=== PATIENT | male | born 1990 | race Caucasian/White ===

== ENCOUNTER 2018-06-05 11:19 | Emergency (ER) | payer SELFPAY ==
[2018-06-05 11:30] VITALS: BP 141/100; PULSE 144; RESP 18; TEMP 37.3; O2SAT 99; BMI 38.0
[2018-06-05 12:00] LABS: Add Manual Diff / Slide Review NO; Basophils Percent Auto 0.5 % (0-2); Eosinophils Percent Auto 0.1 % (2-4); Hematocrit 49.2 % (41-53); Hemoglobin 16.9 g/dL (13.5-17.5); Lymphocytes Percent Auto 25.7 % (25-40); Mean Corpuscular HGB Conc 34.3 % (30-36); Mean Corpuscular Hemoglobin 30.6 PG (26-34); Mean Corpuscular Volume 89.1 fL (80-100); Monocytes Percent Auto 7.1 % (3-14); Neutrophils Absolute Auto 7200 /uL (3000-5900); Neutrophils Percent Auto 66.6 % (50-75); Platelet Count 396 X10^3/uL (150-400); Red Blood Cell Count 5.53 X10^6/uL (4.5-5.9); Red Cell Distribution Width 14.1 % (11.6-14.8); White Blood Cell Count 10.8 X10^3/uL (4.5-11.0)
[2018-06-05 12:09] LABS: Alanine Aminotransferase 28 IU/L (21-72); Albumin 4.9 g/dL (3.5-5.0); Albumin Globulin Ratio 1.3 (1.0-2.8); Alkaline Phosphatase 88 U/L (38-126); Aspartate Aminotransferase 38 IU/L (17-59); Blood Urea Nitrogen 12 mg/dL (9-20); Calcium 9.4 mg/dL (8.4-10.2); Carbon Dioxide 24 mmol/L (22-32); Chloride 105 mmol/L (98-107); Estimated Glomerular Filt Rate > 60.0 mL/min (>60); Ethanol (ETOH) < 10 mg/dL; Globulin 3.8 g/dL (1.7-4.1); Glucose 145 mg/dL (70-100); Lipase 34 U/L (23-300); Sodium 149 mmol/L (137-145); Total Protein 8.7 g/dL (6.3-8.2)
[2018-06-05 12:10] LABS: HEMOLYSIS 103 (0-50); Potassium 5.1 mmol/L (3.4-5.1)
[2018-06-05] MEDS: SODIUM CHLORIDE 0.9% 1,000 ML 1000 ML IV ×2 (12:10→13:15)
[2018-06-05] MEDS: LORazepam 2 MG/ML SYRINGE 1 MG IV ×2 (12:10→14:01)
[2018-06-05 12:15] VITALS: BP 120/64; PULSE 121; RESP 19; O2SAT 98
--- NOTE | 2018-06-05 12:35 | ED_ITS ---
HPI - Alcohol General Chief Complaint: Toxicology Problem Stated Complaint: alcohol withdrawal Time Seen by Provider: 06/05/18 11:51 Source: patient Mode of arrival: ambulatory Limitations: no limitations History of Present Illness HPI narrative: Patient is a 28-year-old male who thinks he is going through alcohol withdrawal. He drinks a 5th of vodka daily he drank a 5th of vodka last night. Today he has left lower quadrant pain and started vomiting once he got to the ED. He says that he was a little shaky as well. No fevers home, no diarrhea. For 4 months ago he was sober at that time for 6 months. Chronic alcohol use: Yes Previous visits for alcohol intoxication: No Recent trauma: No Related Data Previous Rx's Medication Instructions Recorded chlordiazepoxide HCl 25 mg PO Q8H #6 cap 06/05/18 Allergies Allergy/AdvReac Type Severity Reaction Status Date / Time No Known Drug Allergies Allergy Verified 06/05/18 11:53 Review of Systems Review of Systems All systems reviewed & are unremarkable except as noted in HPI and below Constitutional Reports system reviewed and no additional complaints, except as docu, Reports excessive sweating, Denies fever(s) and Denies headache(s) ENT Ears, Nose, Mouth, and Throat: Denies headache(s) Cardiovascular Denies chest pain, Reports diaphoresis, Denies syncope, Reports rapid heart rate , Denies dyspnea and Denies dyspnea on exertion Respiratory Denies cough, Denies dyspnea, Denies dyspnea on exertion and Denies wheezing Gastrointestinal Gastrointestinal: Reports as per HPI Musculoskeletal Denies back pain, Denies muscle weakness, Denies numbness and Denies tingling Integumentary/Breasts Denies pruritus, Denies erythema, Denies rash and Denies wounds Neurologic Denies syncope, Denies headache(s), Denies numbness and Denies tingling Endocrine Reports excessive sweating Allergic/Immunologic Denies wheezing PFSH Medical History Alcohol abuse (Acute) Social History Smoking Status: Never smoker alcohol intake: current substance use type: does not use Exam Initial Vital Signs Initial Vital Signs: Vital Signs Temperature 99.1 F 06/05/18 11:30 Pulse Rate 144 H 06/05/18 11:30 Respiratory Rate 18 06/05/18 11:30 Blood Pressure 141/100 H 06/05/18 11:30 Pulse Oximetry 99 06/05/18 11:30 GENERAL: Well-appearing, well-nourished and in no acute distress. HEENT: Head atraumatic,EOMI, pupils reactive, CARDIOVASCULAR: Tachycardic, regular no murmurs RESPIRATORY: Breath sounds equal bilaterally, no wheezes rales or rhonchi. ABDOMEN: Soft, tender left lower quadrant without guarding or rebound EXTREMITIES: Normal range of motion, no clubbing or edema. Neurovascularly intact NEUROLOGICAL: Alert and oriented x4.Normal gait and speech. Cranial nerves II through XII grossly intact. No tremors no asterixis SKIN: Warm, dry, no laceration, no petechiae, no rashes or lesions. Course Orders Ordered: ED Orders 06/05/18 11:45 Complete Blood Count AUTO DIFF Stat Comprehensive Metabolic Panel Stat Ethanol (ETOH) Stat Lipase Stat 06/05/18 12:40 CT abdomen pelvis w con Stat 06/05/18 13:45 Urine Microscopic Stat Discontinued Medications Sodium Chloride (Normal Saline 0.9%) 1,000 mls @ 1,000 mls/hr IV BOLUS ONE Stop: 06/05/18 12:51 Last Infusion: 06/05/18 13:13 Dose: 0 mls/hr Admin: 06/05/18 12:10 Dose: 1,000 mls/hr Sodium Chloride (Normal Saline 0.9%) 1,000 mls @ 1,000 mls/hr IV CONT NATHAN Last Infusion: 06/05/18 14:51 Dose: 0 mls/hr Admin: 06/05/18 13:15 Dose: 1,000 mls/hr Ketorolac Tromethamine (Toradol) 30 mg IV NOW ONE Stop: 06/05/18 12:41 Last Admin: 06/05/18 12:57 Dose: 30 mg Lorazepam (Ativan) 1 mg IV NOW ONE Stop: 06/05/18 11:53 Last Admin: 06/05/18 12:10 Dose: 1 mg Lorazepam (Ativan) 1 mg IV NOW ONE Stop: 06/05/18 13:58 Last Admin: 06/05/18 14:01 Dose: 1 mg Lorazepam (Ativan) 1 mg PO NOW ONE Stop: 06/05/18 14:46 Last Admin: 06/05/18 14:53 Dose: Lorazepam (Ativan) 1 mg PO NOW ONE Stop: 06/05/18 14:52 Last Admin: 06/05/18 14:52 Dose: 1 mg Ondansetron HCl (Zofran) 4 mg IV NOW ONE Stop: 06/05/18 12:41 Last Admin: 06/05/18 12:58 Dose: 4 mg Pantoprazole Sodium (Protonix) 40 mg IV NOW ONE Stop: 06/05/18 12:41 Last Admin: 06/05/18 12:57 Dose: 40 mg Vital Signs - 8 hr 06/05/18 11:30 06/05/18 12:15 06/05/18 14:00 Temperature 99.1 F Pulse Rate 144 H 121 H 111 H Respiratory Rate 18 19 20 Blood Pressure 141/100 H Blood Pressure [Left Arm] 120/64 120/57 L Pulse Oximetry 99 98 100 06/05/18 14:30 06/05/18 15:00 Temperature Pulse Rate 111 H 109 H Respiratory Rate 16 25 H Blood Pressure Blood Pressure [Left Arm] 101/31 L 114/55 L Pulse Oximetry 99 100 MDM - Alcohol Lab Data Attestation: I reviewed the patient's lab results. Result diagrams: 06/05/18 11:45 06/05/18 11:45 Labs: Lab Results 06/05/18 06/05/18 06/05/18 Range/Units 11:45 11:45 11:45 WBC 10.8 (4.5-11.0) X10^3/uL RBC 5.53 (4.5-5.9) X10^6/uL Hgb 16.9 (13.5-17.5) g/dL Hct 49.2 (41-53) % MCV 89.1 (80-100) fL MCH 30.6 (26-34) PG MCHC 34.3 (30-36) % RDW 14.1 (11.6-14.8) % Plt Count 396 (150-400) X10^3/uL Neut % (Auto) 66.6 (50-75) % Lymph % (Auto) 25.7 (25-40) % [place] % (Auto) 7.1 (3-14) % Eos % (Auto) 0.1 L (2-4) % Baso % (Auto) 0.5 (0-2) % Neut # (Auto) 7200 H (0640-8936) /uL Sodium 149 H (137-145) mmol/L Potassium 5.1 (3.4-5.1) mmol/L Chloride 105 (98-107) mmol/L Carbon Dioxide 24 (22-32) mmol/L BUN 12 (9-20) mg/dL Creatinine 0.80 (0.66-1.25) mg/dL Estimated GFR > 60.0 (>60) mL/min BUN/Creatinine Ratio 15.0 (6-22) Glucose 145 H (70-100) mg/dL Calcium 9.4 (8.4-10.2) mg/dL Total Bilirubin 1.0 (0.2-1.3) mg/dL AST 38 (17-59) IU/L ALT 28 (21-72) IU/L Alkaline Phosphatase 88 (38-126) U/L Total Protein 8.7 H (6.3-8.2) g/dL Albumin 4.9 (3.5-5.0) g/dL Globulin 3.8 (1.7-4.1) g/dL Albumin/Globulin Ratio 1.3 (1.0-2.8) Lipase 34 (23-300) U/L Urine RBC (0-5/HPF) Urine WBC (0-5/HPF) Ur Squamous Epith Cells Urine Bacteria (None) Hyaline Casts (None) Urine Mucus (Negative) Ur Culture Indicated? Micro UA Comment Ethyl Alcohol < 10 mg/dL 06/05/18 Range/Units 13:45 WBC (4.5-11.0) X10^3/uL RBC (4.5-5.9) X10^6/uL Hgb (13.5-17.5) g/dL Hct (41-53) % MCV (80-100) fL MCH (26-34) PG MCHC (30-36) % RDW (11.6-14.8) % Plt Count (150-400) X10^3/uL Neut % (Auto) (50-75) % Lymph % (Auto) (25-40) % [place] % (Auto) (3-14) % Eos % (Auto) (2-4) % Baso % (Auto) (0-2) % Neut # (Auto) (2135-1763) /uL Sodium (137-145) mmol/L Potassium (3.4-5.1) mmol/L Chloride (98-107) mmol/L Carbon Dioxide (22-32) mmol/L BUN (9-20) mg/dL Creatinine (0.66-1.25) mg/dL Estimated GFR (>60) mL/min BUN/Creatinine Ratio (6-22) Glucose (70-100) mg/dL Calcium (8.4-10.2) mg/dL Total Bilirubin (0.2-1.3) mg/dL AST (17-59) IU/L ALT (21-72) IU/L Alkaline Phosphatase (38-126) U/L Total Protein (6.3-8.2) g/dL Albumin (3.5-5.0) g/dL Globulin (1.7-4.1) g/dL Albumin/Globulin Ratio (1.0-2.8) Lipase (23-300) U/L Urine RBC 30-100/hpf H (0-5/HPF) Urine WBC 5-10/hpf H (0-5/HPF) Ur Squamous Epith Cells 10-30 /hpf H Urine Bacteria Few (2-10) H (None) Hyaline Casts 10-30/lpf (None) Urine Mucus 2+ H (Negative) Ur Culture Indicated? Cult not indicated Micro UA Comment Not Reportable Ethyl Alcohol mg/dL Imaging Data CT scan - abdomen: Radiologist's impression: PROCEDURE: CT ABDOMEN PELVIS W CON INDICATIONS: LLQ pain TECHNIQUE: After the administration of intravenous contrast, 5 mm thick sections acquired from the diaphragm to the symphysis. 5 mm coronal and sagittal reformats were acquired. For radiation dose reduction, the following was used: automated exposure control, adjustment of mA and/or kV according to patient size. COMPARISON: None. FINDINGS: Image quality: Excellent. ABDOMEN: Lung bases: Lung bases are clear. Heart size is normal. Solid organs: Hepatic steatosis is seen. Gallbladder negative. Biliary system is non dilated. Pancreas enhances normally. Spleen is normal in size and enhancement. No adrenal nodules. Kidneys demonstrate normal size and enhancement, without hydronephrosis. Peritoneum and bowel: Bowel loops demonstrate normal wall thickness and caliber. No free fluid or air. Normal appendix. No evidence of acute diverticulitis. Rectum is collapsed otherwise unremarkable Nodes and vessels: No retroperitoneal or mesenteric adenopathy by size criteria. Aorta and inferior vena cava are normal in size. Miscellaneous: No ventral hernias. PELVIS: Genitourinary: Bladder wall thickness is normal. Miscellaneous: No inguinal hernias or adenopathy. Bones: No suspicious bony lesions. No vertebral body compression fractures. IMPRESSION: Hepatic steatosis. Normal appendix. No acute abnormality. Dictated by: Sherman Spencer M.D. on 06/05/2018 at 13:54 MDM Narrative Medical decision making narrative: 12:00 PM CIWA=4 but tachy 2:45 p.m. CIWA=3 Patient's heart rate has improved significantly. He had no times has tremors of very minimal diaphoresis. He has not had any more vomiting in the ED. He drinks a 5th of vodka less than 24 hr ago. Not quite the right timing for alcohol withdrawal than the left he has been given multiple doses of Ativan. I have discussed with him he will not get another prescription of Librium. CT of his abdomen is within normal limits blood work shows mild hypernatremia Also his urine is noted to have who felt blood and is multiple squamous epithelial cells this is more typical for females urine. he did not urinate again but has no urinary track complaints Discharge Plan Departure Patient Disposition: Home, Self-Care Clinical Impression: Alcohol withdrawal syndrome Discharge Date/Time: 06/05/18 15:38 Interventions: ED Discharge Assessment Last Done: 06/05/18 15:35 Instructions: DI for Alcohol Abuse, DI for Drug or Alcohol Withdrawal Activity Restrictions/Additional Instructions: *You have been diagnosed with alcohol withdrawal syndrome *What to do: Stop drinking alcohol, do not drink while taking Librium. Blood work and CAT scan within normal limits *Continue to take medications as directed -Librium: Take as directed -Day 1: 1 pill 3 times a day -day 2: 1 pill twice a day -Day 3: 1 pill *Follow up with your primary care provider in 2-3 days *Return to ER if you should have hallucinations, seizure or any new, worsening or concerning symptoms Prescriptions: New chlordiazepoxide HCl 25 mg capsule 25 mg PO Q8H Qty: 6 RF: 0
--- NOTE | 2018-06-05 12:40 | DI.CT.S_ITS ---
PROCEDURE: CT ABDOMEN PELVIS W CON INDICATIONS: LLQ pain TECHNIQUE: After the administration of intravenous contrast, 5 mm thick sections acquired from the diaphragm to the symphysis. 5 mm coronal and sagittal reformats were acquired. For radiation dose reduction, the following was used: automated exposure control, adjustment of mA and/or kV according to patient size. COMPARISON: None. FINDINGS: Image quality: Excellent. ABDOMEN: Lung bases: Lung bases are clear. Heart size is normal. Solid organs: Hepatic steatosis is seen. Gallbladder negative. Biliary system is non dilated. Pancreas enhances normally. Spleen is normal in size and enhancement. No adrenal nodules. Kidneys demonstrate normal size and enhancement, without hydronephrosis. Peritoneum and bowel: Bowel loops demonstrate normal wall thickness and caliber. No free fluid or air. Normal appendix. No evidence of acute diverticulitis. Rectum is collapsed otherwise unremarkable Nodes and vessels: No retroperitoneal or mesenteric adenopathy by size criteria. Aorta and inferior vena cava are normal in size. Miscellaneous: No ventral hernias. PELVIS: Genitourinary: Bladder wall thickness is normal. Miscellaneous: No inguinal hernias or adenopathy. Bones: No suspicious bony lesions. No vertebral body compression fractures. IMPRESSION: Hepatic steatosis. Normal appendix. No acute abnormality. Dictated by: Sherman Spencer M.D. on 06/05/2018 at 13:54 Approved by: Sherman Spencer M.D. on 06/05/2018 at 13:56
[2018-06-05] MEDS: PANTOPRAZOLE 40 MG VIAL IV (12:57)
[2018-06-05] MEDS: KETOROLAC 60 MG/2 ML VIAL 30 MG IV (12:57)
[2018-06-05] MEDS: ONDANSETRON 4 MG/2 ML INJ IV (12:58)
[2018-06-05 14:00] VITALS: BP 120/57; PULSE 111; RESP 20; O2SAT 100
[2018-06-05 14:30] VITALS: BP 101/31; PULSE 111; RESP 16; O2SAT 99
[2018-06-05 14:33] LABS: Bacteria Urine Few (2-10); Mucus Urine 2+ (Negative); RBC Urine 30-100/HPF (0-5/HPF); Squamous Epithelial Cell Urine 10-30 /HPF; WBC Urine 5-10/HPF (0-5/HPF)
[2018-06-05 14:34] LABS: Culture Indicated Urine Cult Not Indicated; Hyaline Casts Urine 10-30/LPF
[2018-06-05] MEDS: LORazepam 0.5 MG TABLET 1 MG PO (14:52)
[2018-06-05 15:00] VITALS: BP 114/55; PULSE 109; RESP 25; O2SAT 100
== END 2018-06-05 15:38 | disposition home or self-care (01) ==
PROVIDERS: Emergency Provider Emergency Medicine
DX: F10.239 Alcohol dependence with withdrawal, unspecified (principal)
CPT/HCPCS: 36591; 74177; 80053; 80320; 81003; 81015; 83690; 85025; 93005; 96361; 96374; 96375; 96376; 99283; 99285; C9113; J1885; J2060; J2405; Q9967

== ENCOUNTER 2018-08-05 23:18 | Emergency (ER) | payer OTHER, MEDICAID, SELFPAY ==
[2018-08-05 23:24] VITALS: BP 121/79; PULSE 89; RESP 18; TEMP 36.8; O2SAT 100
--- NOTE | 2018-08-05 23:32 | ED.ABDPAIN ---
HPI - Abdominal Pain General Chief Complaint: Abdominal Pain Stated Complaint: ABDOMINAL PAIN Time Seen by Provider: 08/05/18 23:32 Source: patient Mode of arrival: ambulatory Limitations: no limitations History of Present Illness HPI narrative: The patient arrives with left lower abdominal pain that started abruptly at 6:00 p.m. tonight. He has no recent injuries. He has had no fever. He has no nausea, vomiting or diarrhea. The pain radiates to the left groin. About 2 hr prior to arrival he developed hematuria. He has a remote history of kidney stones. It has been several years since he last passed a kidney stone. Other than the stones, he has alcoholism but has been sober for a significant period of time. He denies associated chest pain or dyspnea. He has no back pain. Related Data Previous Rx's Medication Instructions Recorded chlordiazepoxide HCl 25 mg PO Q8H #6 cap 06/05/18 hydrocodone-acetaminophen [Douglas] 1 tab PO Q4H PRN #10 tab 08/06/18 ibuprofen 800 mg PO Q6-8H PRN #30 tab 08/06/18 Allergies Allergy/AdvReac Type Severity Reaction Status Date / Time No Known Drug Allergies Allergy Verified 06/05/18 11:53 Review of Systems Review of Systems All systems reviewed & are unremarkable except as noted in HPI and below Cardiovascular Denies chest pain, Denies irregular heart rhythm, Denies lightheadedness, Denies palpitations, Denies dyspnea, Denies dyspnea on exertion and Denies orthopnea Respiratory Denies cough, Denies dyspnea, Denies dyspnea on exertion and Denies wheezing Gastrointestinal Gastrointestinal: Reports abdominal pain, Denies change in bowel habits, Denies diarrhea, Denies nausea and Denies vomiting Genitourinary Reports hematuria, Reports flank pain, Denies urinary incontinence and Denies urinary urgency Musculoskeletal Denies back pain, Denies muscle weakness, Denies numbness and Denies tingling Integumentary/Breasts Denies erythema and Denies rash Neurologic Denies numbness and Denies tingling Endocrine Denies palpitations Allergic/Immunologic Denies wheezing PFSH Medical History Kidney stones (Acute) Alcohol abuse (Acute) Social History Smoking Status: Never smoker alcohol intake: former substance use type: does not use Exam Initial Vital Signs Initial Vital Signs: Vital Signs Temperature 98.2 F 08/05/18 23:24 Pulse Rate 89 08/05/18 23:24 Respiratory Rate 18 08/05/18 23:24 Blood Pressure 121/79 08/05/18 23:24 Pulse Oximetry 100 08/05/18 23:24 Const General: cooperative and well developed Nutritional Appearance: well nourished Orientation: alert, awake, oriented x3 and not confused Chest Chest: normal inspection of the chest Resp Effort & Inspection: normal respiratory effort, able to speak in complete sentences, no respiratory distress and no use of accessory muscles Auscultation: clear to auscultation bilaterally, no rales, no rhonchi and no wheezes Cardio Rate: regular rate Rhythm: regular rhythm Heart Sounds: no click, no gallops, no murmurs and no rubs Pulses: normal peripheral pulses GI Inspection: non-distended Palpation: soft, no hepatosplenomegaly, No pulsatile mass and tender (Left flank and left lower quadrant. No peritoneal signs.) Auscultation: normal bowel sounds Back/Spine/Pelvis Back: No CVA tenderness Skin General: no rashes or lesions noted, No jaundice and No petechiae Neuro General: alert, oriented x3, gait normal and no focal motor deficits Speech: speech normal Extrem General: full ROM and no clubbing, cyanosis or edema Course Orders Ordered: ED Orders 08/05/18 23:31 Urine Microscopic Stat 08/05/18 23:40 CT kidney ureter bladder (KUB) Stat 08/05/18 23:50 Basic Metabolic Panel Stat Complete Blood Count AUTO DIFF Stat Sodium Chloride (Normal Saline 0.9%) 1,000 mls @ 250 mls/hr IV CONT NATHAN Last Admin: 08/05/18 23:52 Dose: 250 mls/hr Discontinued Medications Hydrocodone Bitart/Acetaminophen (Vicodin Prepack) 1 bottle MISC SEEINSTR ONE Stop: 08/06/18 01:43 Last Admin: 08/06/18 01:54 Dose: 1 bottle Hydromorphone HCl (Dilaudid) 1 mg IV NOW ONE Stop: 08/06/18 00:12 Last Admin: 08/06/18 00:25 Dose: 1 mg Ketorolac Tromethamine (Toradol) 30 mg IV NOW ONE Stop: 08/05/18 23:39 Last Admin: 08/05/18 23:51 Dose: 30 mg Ondansetron HCl (Zofran) 4 mg IV NOW ONE Stop: 08/06/18 00:13 Last Admin: 08/06/18 00:25 Dose: 4 mg Tamsulosin HCl (Flomax) 0.4 mg PO NOW ONE Stop: 08/06/18 00:13 Last Admin: 08/06/18 00:53 Dose: 0.4 mg Vital Signs - 8 hr 08/05/18 23:24 Temperature 98.2 F Pulse Rate 89 Respiratory Rate 18 Blood Pressure 121/79 Pulse Oximetry 100 MDM - Abdominal Pain Lab Data Result diagrams: 08/05/18 23:50 08/05/18 23:50 Lab Results 08/05/18 08/05/18 08/05/18 Range/Units 23:31 23:50 23:50 WBC 7.9 (4.5-11.0) X10^3/uL RBC 5.49 (4.5-5.9) X10^6/uL Hgb 16.7 (13.5-17.5) g/dL Hct 48.1 (41-53) % MCV 87.7 (80-100) fL MCH 30.4 (26-34) PG MCHC 34.6 (30-36) % RDW 13.9 (11.6-14.8) % Plt Count 250 (150-400) X10^3/uL Neut % (Auto) 60.9 (50-75) % Lymph % (Auto) 29.4 (25-40) % [place] % (Auto) 8.8 (3-14) % Eos % (Auto) 0.4 L (2-4) % Baso % (Auto) 0.5 (0-2) % Neut # (Auto) 4800 (9730-2503) /uL Sodium 143 (137-145) mmol/L Potassium 3.8 (3.4-5.1) mmol/L Chloride 101 (98-107) mmol/L Carbon Dioxide 27 (22-32) mmol/L BUN 9 (9-20) mg/dL Creatinine 0.90 (0.66-1.25) mg/dL Estimated GFR > 60.0 (>60) mL/min BUN/Creatinine Ratio 10.0 (6-22) Glucose 107 H (70-100) mg/dL Calcium 9.6 (8.4-10.2) mg/dL Urine RBC 30-100/hpf H (0-5/HPF) Urine WBC 1-5/hpf (0-5/HPF) Ur Squamous Epith Cells 1-5 /hpf D Urine Bacteria Few (2-10) H (None) Urine Mucus 2+ H (Negative) Ur Culture Indicated? Cult not indicated Micro UA Comment Not Reportable Point of care testing: Urine Dip Bedside Urine Glucose Negative Bedside Urine Bilirubin ++ 2 Bedside Urine Ketone + 15 Urine Specific [place] 1.030 Bedside Urine Occult Blood +++ Bedside Urine pH 6.0 Bedside Urine Protein ++ 100 Bedside Urine Urobilinogen +/- 1mg Bedside Urine Nitrite - Negative Bedside Urine Leukocytes - Negative Esterase Imaging Data CT scan - abdomen: Radiologist's impression: Radiology interpret the CT as a distal colitis, recommend clinical correlation. No renal stones or hydronephrosis were noted. MDM Narrative Medical decision making narrative: The patient has left lower quadrant pain plus hematuria. Clinically evaluation is highly suggestive of a distal ureter stone. The stone was not revealed by CT. He was still treated as if he was passing a kidney stone, and improved with the medications given. He will discharged home with pain medications, with instructions to drink fluid and screen his urine for a stone. Discharge Plan Departure Patient Disposition: Home Clinical Impression: Calculus of distal left ureter Instructions: DI for Kidney Stones Activity Restrictions/Additional Instructions: Motrin 800mg every 6 hr as needed for pain. Douglas every 4 hr for added pain control. Be sure you are drinking enough fluids that you have to urinate every 3-4 hours at the minimum. Screen your urine in an effort to detect a passed kidney stone. Return here for increasing pain, fever, or nausea/vomiting. Prescriptions: New ibuprofen 800 mg tablet 800 mg PO Q6-8H PRN (Reason: pain) Qty: 30 RF: 0 hydrocodone-acetaminophen [Douglas] 5-325 mg tablet 1 tab PO Q4H PRN (Reason: pain) Qty: 10 RF: 0 No Action chlordiazepoxide HCl 25 mg capsule 25 mg PO Q8H Qty: 6 RF: 0
--- NOTE | 2018-08-05 23:40 | DI.CT.S_ITS ---
PROCEDURE: CT KIDNEY URETER BLADDER (KUB) INDICATIONS: Hematuria. Left flank pain. TECHNIQUE: Noncontrast 5 mm thick sections acquired from the diaphragms to the symphysis. 5 mm thick coronal and sagittal reformats were then performed. For radiation dose reduction, the following was used: automated exposure control, adjustment of mA and/or kV according to patient size. COMPARISON: None. FINDINGS: Image quality: Excellent. Lung bases: Lung bases are clear. Heart size is normal. Urinary system: Both kidneys are normal in size. No kidney stones. No hydronephrosis or perinephric fat stranding. Both ureters appear non-dilated throughout their expected courses. Bladder wall thickness is normal; no calcified bladder stones. Other solid organs: Liver is normal in size. There is decreased liver parenchymal density suggestive of hepatic steatosis. Gallbladder is within normal limits. Pancreas is normal in contours. Spleen is normal in size. No adrenal nodules. Peritoneum and bowel: Unenhanced bowel loops demonstrate normal wall thickness and caliber. No free fluid or air. Small hiatal hernia is seen. Appendix is visualized and is within normal limits. Nodes and vessels: No retroperitoneal or mesenteric adenopathy by size criteria. Aorta and inferior vena cava are normal in caliber. Abdominal wall: No ventral hernias. Pelvis: No free pelvic fluid. No inguinal hernias or adenopathy. Bones: No suspicious bony lesions. No vertebral body compression fractures. IMPRESSION: 1. No renal stones or hydronephrosis. 2. No bowel obstruction. Normal appendix. No free fluid or free air. 3. Mild hepatic steatosis. No significant discrepancies from preliminary report. Dictated by: Liam Bone M.D. on 08/06/2018 at 8:59 Approved by: Liam Bone M.D. on 08/06/2018 at 9:11
[2018-08-05 23:47] LABS: RBC Urine 30-100/HPF (0-5/HPF)
[2018-08-05 23:48] LABS: Bacteria Urine Few (2-10); Squamous Epithelial Cell Urine 1-5 /HPF; WBC Urine 1-5/HPF (0-5/HPF)
[2018-08-05 23:49] LABS: Mucus Urine 2+ (Negative)
[2018-08-05 23:50] LABS: Culture Indicated Urine Cult Not Indicated
[2018-08-05] MEDS: KETOROLAC 60 MG/2 ML VIAL 30 MG IV (23:51)
[2018-08-05] MEDS: SODIUM CHLORIDE 0.9% 1,000 ML 250 ML IV (23:52)
[2018-08-05 23:59] LABS: Add Manual Diff / Slide Review NO; Basophils Percent Auto 0.5 % (0-2); Eosinophils Percent Auto 0.4 % (2-4); Hematocrit 48.1 % (41-53); Hemoglobin 16.7 g/dL (13.5-17.5); Lymphocytes Percent Auto 29.4 % (25-40); Mean Corpuscular HGB Conc 34.6 % (30-36); Mean Corpuscular Hemoglobin 30.4 PG (26-34); Mean Corpuscular Volume 87.7 fL (80-100); Monocytes Percent Auto 8.8 % (3-14); Neutrophils Absolute Auto 4800 /uL (3000-5900); Neutrophils Percent Auto 60.9 % (50-75); Platelet Count 250 X10^3/uL (150-400); Red Blood Cell Count 5.49 X10^6/uL (4.5-5.9); Red Cell Distribution Width 13.9 % (11.6-14.8); White Blood Cell Count 7.9 X10^3/uL (4.5-11.0)
[2018-08-06 00:08] LABS: Blood Urea Nitrogen 9 mg/dL (9-20); Calcium 9.6 mg/dL (8.4-10.2); Carbon Dioxide 27 mmol/L (22-32); Chloride 101 mmol/L (98-107); Estimated Glomerular Filt Rate > 60.0 mL/min (>60); Glucose 107 mg/dL (70-100); HEMOLYSIS < 15 (0-50); Potassium 3.8 mmol/L (3.4-5.1); Sodium 143 mmol/L (137-145)
[2018-08-06] MEDS: ONDANSETRON 4 MG/2 ML INJ IV (00:25)
[2018-08-06] MEDS: HYDROMORPHONE 1 MG INJ IV (00:25)
[2018-08-06] MEDS: TAMSULOSIN 0.4 MG CAPSULE PO (00:53)
[2018-08-06] MEDS: HYDROCODONE/ACET 5/325 PREPACK 1 BOTTLE MISC (01:54)
[2018-08-06 02:39] VITALS: BP 120/75; PULSE 85; RESP 18; TEMP 36.7; O2SAT 100
== END 2018-08-06 02:00 | disposition home or self-care (01) ==
PROVIDERS: Emergency Provider Emergency Medicine
DX: N20.1 Calculus of ureter (principal)
CPT/HCPCS: 36591; 74176; 80048; 81003; 81015; 85025; 96361; 96374; 96375; 99283; 99284; J1170; J1885; J2405

== ENCOUNTER 2018-08-08 07:00 | Emergency (ER) | payer OTHER, MEDICAID, SELFPAY ==
[2018-08-08 07:20] VITALS: BP 144/88; PULSE 80; RESP 13; TEMP 36.2; O2SAT 99
--- NOTE | 2018-08-08 07:21 | ED_ITS ---
HPI - Abdominal Pain General Chief Complaint: Abdominal Pain Stated Complaint: lower left abdominal pain Time Seen by Provider: 08/08/18 07:15 Source: patient Mode of arrival: ambulatory Limitations: no limitations History of Present Illness HPI narrative: Patient is a 28-year-old male here for evaluation of left lower quadrant pain and blood in his urine. He was seen here in the emergency department just a few days ago and was diagnosed with a kidney stone. Was sent home with pain medication and ibuprofen. Patient states that he has a remote history of kidney stones. Review of that chart shows that the CT scan the performed during that visit did not show any stones in the renal system however according to the note there was concern that the patient could have recently passed a stone secondary to the fact that his history and physical exam was very consistent with this. Patient states that after he went home his symptoms seemed to improve somewhat however they have now continued. He has the same left lower quadrant abdominal pain. He states that he still has blood in his urine. He states that for the past 24 hr or so he has had ?dripping? when he urinates. States he has some urgency. No burning when he pees. No history of urinary tract infections. Patient is sexually active. No history of sexually transmitted diseases. States that he is not concerned about any sexually transmitted diseases. No bowel symptoms. No prior abdominal surgeries. Patient was seen here in the emergency department earlier this year during a period of time when he was going through alcohol withdrawal. According to that note he was also complaining of left lower quadrant abdominal pain. The patient states that he does not remember pain in this area specifically during that visit because he was ?sore all over ?secondary to his alcohol withdrawal. Review of that note also shows that the patient had hematuria at that time. Patient also states that several years ago when he was going through time of alcohol withdrawal he had left lower quadrant abdominal pain that he states is very similar to the left lower quadrant abdominal pain that he has currently. He states at that time he did not have any hematuria. He states that he has been sober for almost 60 days currently. Related Data Previous Rx's Medication Instructions Recorded chlordiazepoxide HCl 25 mg PO Q8H #6 cap 06/05/18 hydrocodone-acetaminophen [[place]] 1 tab PO Q4H PRN #10 tab 08/06/18 ibuprofen 800 mg PO Q6-8H PRN #30 tab 08/06/18 hydrocodone-acetaminophen [[place]] 1 tab PO Q4-6H PRN #6 tab 08/08/18 levofloxacin [Levaquin] 750 mg PO DAILY #7 tab 08/08/18 ondansetron [Zofran ODT] 4 mg PO Q6-8H PRN #7 tab 08/08/18 Allergies Allergy/AdvReac Type Severity Reaction Status Date / Time No Known Drug Allergies Allergy Verified 06/05/18 11:53 Review of Systems Constitutional Denies fever(s) and Denies headache(s) ENT Ears, Nose, Mouth, and Throat: Denies vertigo, Denies dizziness and Denies headache(s) Cardiovascular Denies chest pain, Denies syncope and Denies dyspnea Respiratory Denies dyspnea Gastrointestinal Gastrointestinal: Reports abdominal pain, Denies melena, Denies change in bowel habits, Denies cramping, Denies diarrhea, Denies nausea and Denies vomiting Genitourinary Reports hematuria, Reports difficulty urinating, Denies genital lesions, Reports dysuria, Reports flank pain (Left), Denies testicular pain, Denies urinary frequency, Reports urinary hesitancy, Denies urinary incontinence and Reports urinary urgency Musculoskeletal Denies myalgias, Denies deformity and Denies arthralgias Integumentary/Breasts Denies lesions and Denies rash Neurologic Denies vertigo, Denies dizziness, Denies syncope and Denies headache(s) Hematologic/Lymphatic Denies easy bleeding and Denies easy bruising Allergic/Immunologic Denies urticaria PFSH Medical History Alcohol abuse (Acute) Kidney stones (Acute) Surgical History No pertinent past surgical history (Acute) Social History Smoking Status: Never smoker alcohol intake: former substance use type: does not use Exam Initial Vital Signs Initial Vital Signs: Vital Signs Temperature 97.2 F L 08/08/18 07:20 Pulse Rate 80 08/08/18 07:20 Respiratory Rate 13 08/08/18 07:20 Blood Pressure 144/88 H 08/08/18 07:20 Pulse Oximetry 99 08/08/18 07:20 Const General: cooperative, healthy appearing, comfortable, well developed, well groomed and No acute distress Orientation: alert, awake and oriented x3 HENMT Head: normal to inspection, normocephalic and atraumatic Resp Effort & Inspection: normal respiratory effort Cardio Rate: regular rate Rhythm: regular rhythm GI Inspection: non-distended Palpation: soft, No firm and tender (Left lower quadrant. No rebound no guarding) Rectal Exam: normal sphincter tone and prostate normal General: CVA tenderness (Left) Back/Spine/Pelvis Back: CVA tenderness left Skin Lesions: no lesions Rashes: no rashes Neuro General: alert, awake and oriented x3 Cognition: normal cognition Speech: speech normal Extrem General: normal to inspection and capillary refill normal Psych Appearance: grossly normal and well kempt Course Orders Ordered: ED Orders 08/08/18 07:55 Urinalysis and Microscopic Stat Urine Culture Stat 08/08/18 08:10 Complete Blood Count AUTO DIFF Stat Comprehensive Metabolic Panel Stat Lipase Stat Vital Signs - 8 hr 08/08/18 07:20 Temperature 97.2 F L Pulse Rate 80 Respiratory Rate 13 Blood Pressure 144/88 H Pulse Oximetry 99 MDM - Abdominal Pain Medical Records Attestation: I reviewed the patient's medical records. Lab Data Attestation: I reviewed the patient's lab results. Result diagrams: 08/08/18 08:10 08/08/18 08:10 Lab Results 08/08/18 08/08/18 08/08/18 Range/Units 07:55 08:10 08:10 WBC 8.1 (4.5-11.0) X10^3/uL RBC 5.18 (4.5-5.9) X10^6/uL Hgb 16.0 (13.5-17.5) g/dL Hct 45.4 (41-53) % MCV 87.5 (80-100) fL MCH 30.8 (26-34) PG MCHC 35.2 (30-36) % RDW 14.1 (11.6-14.8) % Plt Count 223 (150-400) X10^3/uL Neut % (Auto) 66.7 (50-75) % Lymph % (Auto) 22.0 L (25-40) % [place] % (Auto) 8.8 (3-14) % Eos % (Auto) 2.2 (2-4) % Baso % (Auto) 0.3 (0-2) % Neut # (Auto) 5400 (8885-3208) /uL Sodium 146 H (137-145) mmol/L Potassium 4.5 (3.4-5.1) mmol/L Chloride 105 (98-107) mmol/L Carbon Dioxide 31 (22-32) mmol/L BUN 8 L (9-20) mg/dL Creatinine 0.70 (0.66-1.25) mg/dL Estimated GFR > 60.0 (>60) mL/min BUN/Creatinine Ratio 11.4 (6-22) Glucose 101 H (70-100) mg/dL Calcium 9.3 (8.4-10.2) mg/dL Total Bilirubin 0.8 (0.2-1.3) mg/dL AST 52 (17-59) IU/L ALT 51 (21-72) IU/L Alkaline Phosphatase 91 (38-126) U/L Total Protein 7.3 (6.3-8.2) g/dL Albumin 4.4 (3.5-5.0) g/dL Globulin 2.9 (1.7-4.1) g/dL Albumin/Globulin Ratio 1.5 (1.0-2.8) Lipase 35 (23-300) U/L Urine Color Red Urine Appearance Cloudy Urine pH 8.0 (4.5-8.0) Ur Specific [place] 1.010 (1.000-1.035) Urine Protein 1+ H (Negative) Urine Glucose (UA) Negative (Normal) g/dL Urine Ketones Trace H (NEGATIVE) Urine Occult Blood 3+ H (Negative) Urine Nitrate Positive (Negative) Urine Bilirubin Negative (NEGATIVE) Urine Urobilinogen 1.0 (0.2) E.U./dL Ur Leukocyte Esterase 1+ H (NEGATIVE) Urine RBC >100/hpf (0-5/HPF) Urine WBC 0-1/hpf (0-5/HPF) Ur Squamous Epith Cells 1-5 /hpf Urine Bacteria Few (2-10) H (None) Ur Culture Indicated? Specimen cultured Micro UA Comment Not Reportable MDM Narrative Medical decision making narrative: Patient has a nitrite positive urine today. Given his hematuria and the urinary hesitancy a do have concern for urinary tract infection. The patient states that he is not concerned about any sexually transmitted infections. His physical exam shows no prostate tenderness or bogginess. Patient had a CT scan of his abdomen a couple days ago that was unremarkable. This was done without contrast and so diagnoses such as renal artery pathology as a source of his hematuria is still in question however given his physical exam, the fact that he had hematuria several months ago, the fact that he had this same left lower quadrant abdominal pain several years ago when he was withdrawing from alcohol and also the fact that he has nitrite positive urine today will hold on any further CT scans and treat with antibiotics. Will discharge with a prescription for Levaquin. This should take care of any urinary tract infection and also the possibility of prostatitis and also diverticulitis. Patient was given return precautions. He was instructed to increase his fluid intake to prevent clot formation and then urinary retention. Patient expressed understanding and agreement with plan. Discharge Plan Departure Patient Disposition: Home Clinical Impression: Urinary tract infection, Abdominal pain, Hematuria Instructions: Blood in Urine, DI for Urinary Tract Infection (UTI) Prescriptions: New hydrocodone-acetaminophen [[place]] 5-325 mg tablet 1 tab PO Q4-6H PRN (Reason: pain) Qty: 6 RF: 0 levofloxacin [Levaquin] 750 mg tablet 750 mg PO DAILY Qty: 7 RF: 0 ondansetron [Zofran ODT] 4 mg tablet,disintegrating 4 mg PO Q6-8H PRN (Reason: nausea and vomiting) Qty: 7 RF: 0 No Action ibuprofen 800 mg tablet 800 mg PO Q6-8H PRN (Reason: pain) Qty: 30 RF: 0 hydrocodone-acetaminophen [[place]] 5-325 mg tablet 1 tab PO Q4H PRN (Reason: pain) Qty: 10 RF: 0 chlordiazepoxide HCl 25 mg capsule 25 mg PO Q8H Qty: 6 RF: 0
[2018-08-08 07:58] LABS: Appearance Urine UA CLOUDY; Bilirubin Urine UA NEGATIVE (NEGATIVE); Color Urine UA RED; Glucose Urine UA NEGATIVE (Normal); Ketones Urine UA TRACE (NEGATIVE); Leukocyte Esterase Urine UA 1+ (NEGATIVE); Nitrite Urine UA POSITIVE (Negative); Occult Blood Urine UA 3+ (Negative); Protein Urine UA 1+ (Negative)
[2018-08-08 08:06] LABS: Bacteria Urine Few (2-10); Culture Indicated Urine Specimen Cultured; RBC Urine >100/HPF (0-5/HPF); Squamous Epithelial Cell Urine 1-5 /HPF; WBC Urine 0-1/HPF (0-5/HPF)
[2018-08-08 08:25] LABS: Add Manual Diff / Slide Review NO; Basophils Percent Auto 0.3 % (0-2); Eosinophils Percent Auto 2.2 % (2-4); Hematocrit 45.4 % (41-53); Mean Corpuscular HGB Conc 35.2 % (30-36); Mean Corpuscular Hemoglobin 30.8 PG (26-34); Mean Corpuscular Volume 87.5 fL (80-100); Monocytes Percent Auto 8.8 % (3-14); Neutrophils Absolute Auto 5400 /uL (3000-5900); Neutrophils Percent Auto 66.7 % (50-75); Platelet Count 223 X10^3/uL (150-400); Red Blood Cell Count 5.18 X10^6/uL (4.5-5.9); Red Cell Distribution Width 14.1 % (11.6-14.8); White Blood Cell Count 8.1 X10^3/uL (4.5-11.0)
[2018-08-08 08:31] LABS: Alanine Aminotransferase 51 IU/L (21-72); Albumin 4.4 g/dL (3.5-5.0); Albumin Globulin Ratio 1.5 (1.0-2.8); Alkaline Phosphatase 91 U/L (38-126); Aspartate Aminotransferase 52 IU/L (17-59); BUN Creatinine Ratio 11.4 (6-22); Bilirubin Total 0.8 mg/dL (0.2-1.3); Blood Urea Nitrogen 8 mg/dL (9-20); Calcium 9.3 mg/dL (8.4-10.2); Carbon Dioxide 31 mmol/L (22-32); Chloride 105 mmol/L (98-107); Estimated Glomerular Filt Rate > 60.0 mL/min (>60); Globulin 2.9 g/dL (1.7-4.1); Glucose 101 mg/dL (70-100); HEMOLYSIS 20 (0-50); Lipase 35 U/L (23-300); Potassium 4.5 mmol/L (3.4-5.1); Sodium 146 mmol/L (137-145); Total Protein 7.3 g/dL (6.3-8.2)
[2018-08-08 09:38] VITALS: BP 137/88; PULSE 90; RESP 14; TEMP 37; O2SAT 95
== END 2018-08-08 09:40 | disposition home or self-care (01) ==
PROVIDERS: Emergency Provider Emergency Medicine
DX: N39.0 Urinary tract infection, site not specified (principal); R31.9 Hematuria, unspecified; R10.9 Unspecified abdominal pain
CPT/HCPCS: 36415; 80053; 81001; 83690; 85025; 87086; 99282; 99283

== ENCOUNTER 2018-08-16 20:03 | Emergency (ER) | payer OTHER, MEDICAID, SELFPAY ==
--- NOTE | 2018-08-16 20:06 | ED.AMS ---
HPI - Altered Mental Status <Anson Gibbons DO - Last Filed: 08/17/18 18:14> General Chief Complaint: Toxicology Problem Stated Complaint: Decreased LOC Time Seen by Provider: 08/16/18 20:04 Source: EMS Mode of arrival: EMS Limitations: altered mental status History of Present Illness HPI narrative: Patient is a 28-year-old male brought in by EMS. They state that they were called by the patient's family. Was reported that the patient is staying with a family member. Does report that he was drinking excessively today. Apparently this evening the patient urinated in his nephew's closet and was stumbling around the home and so EMS was called. He was brought to the emergency department. Difficult to obtain history from the patient. He does have points of time where he does participate in the exam. He did tell nursing staff that he did drink today. He denied taking any other intoxicating substances. No reports of falls. Related Data Previous Rx's Medication Instructions Recorded lorazepam [Ativan] 1 mg PO .see instructions PRN #18 08/17/18 tab Allergies Allergy/AdvReac Type Severity Reaction Status Date / Time No Known Drug Allergies Allergy Verified 06/05/18 11:53 Review of Systems <Anson Gibbons DO - Last Filed: 08/17/18 18:14> Review of Systems unobtainable due to mental status Exam <Anson Gibbons DO - Last Filed: 08/17/18 18:14> Initial Vital Signs Initial Vital Signs: Vital Signs Temperature 98.2 F 08/16/18 20:12 Pulse Rate 100 H 08/16/18 20:12 Respiratory Rate 16 08/16/18 20:12 Blood Pressure 146/96 H 08/16/18 20:12 Pulse Oximetry 93 08/16/18 20:12 Const General: comfortable, well developed and well groomed Orientation: awake, not oriented x3, oriented to person (Told nursing staff his name but did not answer this question for me), oriented to place (He did tell nursing staff that he was at the hospital but did not answer this question for me) and not oriented to time Limitations: altered mental status HENMT Head: normal to inspection and normocephalic Eyes Pupils: PERRL (6 mm equal bilateral) Resp Effort & Inspection: normal respiratory effort Auscultation: clear to auscultation bilaterally Cardio Rate: regular rate Rhythm: regular rhythm Pulses: radial pulses present GI Inspection: non-distended Palpation: soft and No firm Skin Lesions: no lesions Rashes: no rashes Neuro General: moves all extremities Other: Patient did not answer any of my questions however did follow commands. He did squeeze my hand when I asked him if he was drinking alcohol today. Extrem Other: Moves all 4 extremities to command Psych Appearance: grossly normal and well kempt <Lise Arambula, DO - Last Filed: 08/17/18 18:59> Initial Vital Signs Initial Vital Signs: Vital Signs Temperature 98.2 F 08/16/18 20:12 Pulse Rate 100 H 08/16/18 20:12 Respiratory Rate 16 08/16/18 20:12 Blood Pressure 146/96 H 08/16/18 20:12 Pulse Oximetry 93 08/16/18 20:12 Course <Anson Gibbons, DO - Last Filed: 08/17/18 18:14> Orders Ordered: Discontinued Medications Sodium Chloride (Normal Saline 0.9%) 1,000 mls @ 1,000 mls/hr IV BOLUS ONE Stop: 08/16/18 21:03 Last Infusion: 08/16/18 21:20 Dose: 0 mls/hr Admin: 08/16/18 20:18 Dose: 1,000 mls/hr Sodium Chloride (Normal Saline 0.9%) 1,000 mls @ 200 mls/hr IV CONT NATHAN Last Admin: 08/17/18 04:18 Dose: Not Given Magnesium Sulfate 2 gm/ Folic Acid 1 mg/ Thiamine HCl 100 mg / Multivitamins 10 ml/ Sodium Chloride 1,015.2 mls @ 200 mls/hr IV NOW ONE Stop: 08/17/18 02:20 Last Infusion: 08/17/18 04:18 Dose: 0 mls/hr Admin: 08/16/18 22:10 Dose: 200 mls/hr Lorazepam (Ativan) 1 mg IV NOW ONE Stop: 08/17/18 09:15 Last Admin: 08/17/18 09:26 Dose: 1 mg Lorazepam (Ativan) 1 mg IV NOW ONE Stop: 08/17/18 10:31 Last Admin: 08/17/18 10:32 Dose: 1 mg Lorazepam (Ativan) 0.5 mg IV NOW ONE Stop: 08/17/18 11:12 Last Admin: 08/17/18 11:23 Dose: 0.5 mg Vital Signs - 8 hr 08/17/18 11:30 08/17/18 12:00 Pulse Rate 95 H 96 H Respiratory Rate 11 L 18 Blood Pressure [Left Arm] 159/84 H 142/97 H Pulse Oximetry 96 97 <Lise Arambula, DO - Last Filed: 08/17/18 18:59> Orders Ordered: Discontinued Medications Sodium Chloride (Normal Saline 0.9%) 1,000 mls @ 1,000 mls/hr IV BOLUS ONE Stop: 08/16/18 21:03 Last Infusion: 08/16/18 21:20 Dose: 0 mls/hr Admin: 08/16/18 20:18 Dose: 1,000 mls/hr Sodium Chloride (Normal Saline 0.9%) 1,000 mls @ 200 mls/hr IV CONT NATHAN Last Admin: 08/17/18 04:18 Dose: Not Given Magnesium Sulfate 2 gm/ Folic Acid 1 mg/ Thiamine HCl 100 mg / Multivitamins 10 ml/ Sodium Chloride 1,015.2 mls @ 200 mls/hr IV NOW ONE Stop: 08/17/18 02:20 Last Infusion: 08/17/18 04:18 Dose: 0 mls/hr Admin: 08/16/18 22:10 Dose: 200 mls/hr Lorazepam (Ativan) 1 mg IV NOW ONE Stop: 08/17/18 09:15 Last Admin: 08/17/18 09:26 Dose: 1 mg Lorazepam (Ativan) 1 mg IV NOW ONE Stop: 08/17/18 10:31 Last Admin: 08/17/18 10:32 Dose: 1 mg Lorazepam (Ativan) 0.5 mg IV NOW ONE Stop: 08/17/18 11:12 Last Admin: 08/17/18 11:23 Dose: 0.5 mg Reevaluation(s) Reevaluation #1: Patient just seen by social work, discussed options for detox, rehab and living situation. Patient is deferring currently. Social work is going to touch base with his brother whom he lives with and will re-contact patient here in ER. Patient otherwise has been sleeping this morning. Patient feels a little shaky thinks he might be starting have withdrawls, alert and appropriate at this time, HR in 90's otherwise normal vitals. No visible tremor at this time. Ativan 1mg IV ordered to prevent withdrawl. Time: 09:08 Vital Signs - 8 hr 08/17/18 11:30 08/17/18 12:00 Pulse Rate 95 H 96 H Respiratory Rate 11 L 18 Blood Pressure [Left Arm] 159/84 H 142/97 H Pulse Oximetry 96 97 MDM - Altered Mental Status <Anson Gibbons DO - Last Filed: 08/17/18 18:14> Lab Data Attestation: I reviewed the patient's lab results. Result diagrams: 08/17/18 06:07 08/17/18 06:07 Lab Results 08/16/18 08/16/18 08/16/18 Range/Units 20:30 20:38 20:38 WBC 7.3 (4.5-11.0) X10^3/uL RBC 6.19 H (4.5-5.9) X10^6/uL Hgb 19.2 H (13.5-17.5) g/dL Hct 55.2 H (41-53) % MCV 89.1 (80-100) fL MCH 30.9 (26-34) PG MCHC 34.7 (30-36) % RDW 14.7 (11.6-14.8) % Plt Count 332 (150-400) X10^3/uL Neut % (Auto) 33.9 L (50-75) % Lymph % (Auto) 54.3 H (25-40) % [place] % (Auto) 10.0 (3-14) % Eos % (Auto) 1.1 L (2-4) % Baso % (Auto) 0.7 (0-2) % Neut # (Auto) 2500 L (6857-3162) /uL Sodium 155 H (137-145) mmol/L Potassium 4.1 (3.4-5.1) mmol/L Chloride 109 H (98-107) mmol/L Carbon Dioxide 27 (22-32) mmol/L BUN 16 (9-20) mg/dL Creatinine 0.90 (0.66-1.25) mg/dL Estimated GFR > 60.0 (>60) mL/min BUN/Creatinine Ratio 17.8 (6-22) Glucose 125 H (70-100) mg/dL Lactate (0.7-2.1) mmol/L Calcium 8.5 (8.4-10.2) mg/dL Total Bilirubin 0.9 (0.2-1.3) mg/dL AST 40 (17-59) IU/L ALT 35 (21-72) IU/L Alkaline Phosphatase 88 (38-126) U/L Total Protein 7.9 (6.3-8.2) g/dL Albumin 4.6 (3.5-5.0) g/dL Globulin 3.3 (1.7-4.1) g/dL Albumin/Globulin Ratio 1.4 (1.0-2.8) Lipase 77 D (23-300) U/L Salicylates < 1.0 (<20) mg/dL Urine Opiates Screen Negative (Negative) Ur Oxycodone Screen Negative (Negative) Urine Methadone Screen Negative (Negative) Acetaminophen < 10 L (10-30) ug/mL Ur Barbiturates Screen Negative (Negative) U Tricyclic Antidepress Negative (Negative) Ur Phencyclidine Scrn Negative (Negative) Ur Amphetamines Screen Negative (Negative) U Methamphetamines Scrn Negative (Negative) Ur MDMA Scrn (Ecstasy) Negative (Negative) U Benzodiazepines Scrn Positive H (Negative) Urine Cocaine Screen Negative (Negative) U Marijuana (THC) Screen Negative (Negative) Ethyl Alcohol 435 H* mg/dL 08/16/18 08/16/18 08/17/18 Range/Units 20:38 20:38 06:07 WBC 7.0 (4.5-11.0) X10^3/uL RBC 5.80 (4.5-5.9) X10^6/uL Hgb 17.6 H (13.5-17.5) g/dL Hct 51.6 (41-53) % MCV 89.0 (80-100) fL MCH 30.3 (26-34) PG MCHC 34.0 (30-36) % RDW 14.5 (11.6-14.8) % Plt Count 268 (150-400) X10^3/uL Neut % (Auto) 50.3 (50-75) % Lymph % (Auto) 41.6 H (25-40) % [place] % (Auto) 6.8 (3-14) % Eos % (Auto) 0.8 L (2-4) % Baso % (Auto) 0.5 (0-2) % Neut # (Auto) 3500 (9468-2179) /uL Sodium (137-145) mmol/L Potassium (3.4-5.1) mmol/L Chloride (98-107) mmol/L Carbon Dioxide (22-32) mmol/L BUN (9-20) mg/dL Creatinine (0.66-1.25) mg/dL Estimated GFR (>60) mL/min BUN/Creatinine Ratio (6-22) Glucose (70-100) mg/dL Lactate 1.6 (0.7-2.1) mmol/L Calcium (8.4-10.2) mg/dL Total Bilirubin (0.2-1.3) mg/dL AST (17-59) IU/L ALT (21-72) IU/L Alkaline Phosphatase (38-126) U/L Total Protein (6.3-8.2) g/dL Albumin (3.5-5.0) g/dL Globulin (1.7-4.1) g/dL Albumin/Globulin Ratio (1.0-2.8) Lipase Cancelled (23-300) U/L Salicylates Cancelled (<20) mg/dL Urine Opiates Screen (Negative) Ur Oxycodone Screen (Negative) Urine Methadone Screen (Negative) Acetaminophen (10-30) ug/mL Ur Barbiturates Screen (Negative) U Tricyclic Antidepress (Negative) Ur Phencyclidine Scrn (Negative) Ur Amphetamines Screen (Negative) U Methamphetamines Scrn (Negative) Ur MDMA Scrn (Ecstasy) (Negative) U Benzodiazepines Scrn (Negative) Urine Cocaine Screen (Negative) U Marijuana (THC) Screen (Negative) Ethyl Alcohol Cancelled mg/dL 08/17/18 08/17/18 Range/Units 06:07 06:07 WBC (4.5-11.0) X10^3/uL RBC (4.5-5.9) X10^6/uL Hgb (13.5-17.5) g/dL Hct (41-53) % MCV (80-100) fL MCH (26-34) PG MCHC (30-36) % RDW (11.6-14.8) % Plt Count (150-400) X10^3/uL Neut % (Auto) (50-75) % Lymph % (Auto) (25-40) % [place] % (Auto) (3-14) % Eos % (Auto) (2-4) % Baso % (Auto) (0-2) % Neut # (Auto) (9566-0811) /uL Sodium 155 H (137-145) mmol/L Potassium 4.5 (3.4-5.1) mmol/L Chloride 112 H (98-107) mmol/L Carbon Dioxide 27 (22-32) mmol/L BUN 16 (9-20) mg/dL Creatinine 0.80 (0.66-1.25) mg/dL Estimated GFR > 60.0 (>60) mL/min BUN/Creatinine Ratio 20.0 (6-22) Glucose 109 H (70-100) mg/dL Lactate (0.7-2.1) mmol/L Calcium 8.2 L (8.4-10.2) mg/dL Total Bilirubin (0.2-1.3) mg/dL AST (17-59) IU/L ALT (21-72) IU/L Alkaline Phosphatase (38-126) U/L Total Protein (6.3-8.2) g/dL Albumin (3.5-5.0) g/dL Globulin (1.7-4.1) g/dL Albumin/Globulin Ratio (1.0-2.8) Lipase (23-300) U/L Salicylates (<20) mg/dL Urine Opiates Screen (Negative) Ur Oxycodone Screen (Negative) Urine Methadone Screen (Negative) Acetaminophen (10-30) ug/mL Ur Barbiturates Screen (Negative) U Tricyclic Antidepress (Negative) Ur Phencyclidine Scrn (Negative) Ur Amphetamines Screen (Negative) U Methamphetamines Scrn (Negative) Ur MDMA Scrn (Ecstasy) (Negative) U Benzodiazepines Scrn (Negative) Urine Cocaine Screen (Negative) U Marijuana (THC) Screen (Negative) Ethyl Alcohol 340 mg/dL ECG Data Attestation: I personally reviewed and interpreted this ECG as follows: Prior ECG tracings: not available for review Interpretation: Sinus rhythm Ventricular rate in 99 Normal axis Normal QRS Normal QTC No ST T wave changes MDM Narrative Medical decision making narrative: Patient has remained calm all evening. Has not been any respiratory distress. He did have an elevated H&H and also hypernatremia. I suspect that this is secondary to his alcohol use and dehydration. He was given a banana bag here in the emergency department. Just before shift turned over the patient became more arousable. This is when the 2nd alcohol level was drawn and patient still has a significant alcohol level. He states he does not remember last evening. He did tolerate oral intake. During my re-evaluation this morning he states that he has been sober until yesterday. Care turned over to day provider at change of shift to continue to evaluate the patient for sobriety. A social work consult was placed secondary to his alcohol use and potential social situations about places to live. <Lise Arambula, DO - Last Filed: 08/17/18 18:59> Lab Data Lab Results 08/16/18 08/16/18 08/16/18 Range/Units 20:30 20:38 20:38 WBC 7.3 (4.5-11.0) X10^3/uL RBC 6.19 H (4.5-5.9) X10^6/uL Hgb 19.2 H (13.5-17.5) g/dL Hct 55.2 H (41-53) % MCV 89.1 (80-100) fL MCH 30.9 (26-34) PG MCHC 34.7 (30-36) % RDW 14.7 (11.6-14.8) % Plt Count 332 (150-400) X10^3/uL Neut % (Auto) 33.9 L (50-75) % Lymph % (Auto) 54.3 H (25-40) % [place] % (Auto) 10.0 (3-14) % Eos % (Auto) 1.1 L (2-4) % Baso % (Auto) 0.7 (0-2) % Neut # (Auto) 2500 L (9770-1210) /uL Sodium 155 H (137-145) mmol/L Potassium 4.1 (3.4-5.1) mmol/L Chloride 109 H (98-107) mmol/L Carbon Dioxide 27 (22-32) mmol/L BUN 16 (9-20) mg/dL Creatinine 0.90 (0.66-1.25) mg/dL Estimated GFR > 60.0 (>60) mL/min BUN/Creatinine Ratio 17.8 (6-22) Glucose 125 H (70-100) mg/dL Lactate (0.7-2.1) mmol/L Calcium 8.5 (8.4-10.2) mg/dL Total Bilirubin 0.9 (0.2-1.3) mg/dL AST 40 (17-59) IU/L ALT 35 (21-72) IU/L Alkaline Phosphatase 88 (38-126) U/L Total Protein 7.9 (6.3-8.2) g/dL Albumin 4.6 (3.5-5.0) g/dL Globulin 3.3 (1.7-4.1) g/dL Albumin/Globulin Ratio 1.4 (1.0-2.8) Lipase 77 D (23-300) U/L Salicylates < 1.0 (<20) mg/dL Urine Opiates Screen Negative (Negative) Ur Oxycodone Screen Negative (Negative) Urine Methadone Screen Negative (Negative) Acetaminophen < 10 L (10-30) ug/mL Ur Barbiturates Screen Negative (Negative) U Tricyclic Antidepress Negative (Negative) Ur Phencyclidine Scrn Negative (Negative) Ur Amphetamines Screen Negative (Negative) U Methamphetamines Scrn Negative (Negative) Ur MDMA Scrn (Ecstasy) Negative (Negative) U Benzodiazepines Scrn Positive H (Negative) Urine Cocaine Screen Negative (Negative) U Marijuana (THC) Screen Negative (Negative) Ethyl Alcohol 435 H* mg/dL 08/16/18 08/16/18 08/17/18 Range/Units 20:38 20:38 06:07 WBC 7.0 (4.5-11.0) X10^3/uL RBC 5.80 (4.5-5.9) X10^6/uL Hgb 17.6 H (13.5-17.5) g/dL Hct 51.6 (41-53) % MCV 89.0 (80-100) fL MCH 30.3 (26-34) PG MCHC 34.0 (30-36) % RDW 14.5 (11.6-14.8) % Plt Count 268 (150-400) X10^3/uL Neut % (Auto) 50.3 (50-75) % Lymph % (Auto) 41.6 H (25-40) % [place] % (Auto) 6.8 (3-14) % Eos % (Auto) 0.8 L (2-4) % Baso % (Auto) 0.5 (0-2) % Neut # (Auto) 3500 (6141-5617) /uL Sodium (137-145) mmol/L Potassium (3.4-5.1) mmol/L Chloride (98-107) mmol/L Carbon Dioxide (22-32) mmol/L BUN (9-20) mg/dL Creatinine (0.66-1.25) mg/dL Estimated GFR (>60) mL/min BUN/Creatinine Ratio (6-22) Glucose (70-100) mg/dL Lactate 1.6 (0.7-2.1) mmol/L Calcium (8.4-10.2) mg/dL Total Bilirubin (0.2-1.3) mg/dL AST (17-59) IU/L ALT (21-72) IU/L Alkaline Phosphatase (38-126) U/L Total Protein (6.3-8.2) g/dL Albumin (3.5-5.0) g/dL Globulin (1.7-4.1) g/dL Albumin/Globulin Ratio (1.0-2.8) Lipase Cancelled (23-300) U/L Salicylates Cancelled (<20) mg/dL Urine Opiates Screen (Negative) Ur Oxycodone Screen (Negative) Urine Methadone Screen (Negative) Acetaminophen (10-30) ug/mL Ur Barbiturates Screen (Negative) U Tricyclic Antidepress (Negative) Ur Phencyclidine Scrn (Negative) Ur Amphetamines Screen (Negative) U Methamphetamines Scrn (Negative) Ur MDMA Scrn (Ecstasy) (Negative) U Benzodiazepines Scrn (Negative) Urine Cocaine Screen (Negative) U Marijuana (THC) Screen (Negative) Ethyl Alcohol Cancelled mg/dL 08/17/18 08/17/18 Range/Units 06:07 06:07 WBC (4.5-11.0) X10^3/uL RBC (4.5-5.9) X10^6/uL Hgb (13.5-17.5) g/dL Hct (41-53) % MCV (80-100) fL MCH (26-34) PG MCHC (30-36) % RDW (11.6-14.8) % Plt Count (150-400) X10^3/uL Neut % (Auto) (50-75) % Lymph % (Auto) (25-40) % [place] % (Auto) (3-14) % Eos % (Auto) (2-4) % Baso % (Auto) (0-2) % Neut # (Auto) (8086-3270) /uL Sodium 155 H (137-145) mmol/L Potassium 4.5 (3.4-5.1) mmol/L Chloride 112 H (98-107) mmol/L Carbon Dioxide 27 (22-32) mmol/L BUN 16 (9-20) mg/dL Creatinine 0.80 (0.66-1.25) mg/dL Estimated GFR > 60.0 (>60) mL/min BUN/Creatinine Ratio 20.0 (6-22) Glucose 109 H (70-100) mg/dL Lactate (0.7-2.1) mmol/L Calcium 8.2 L (8.4-10.2) mg/dL Total Bilirubin (0.2-1.3) mg/dL AST (17-59) IU/L ALT (21-72) IU/L Alkaline Phosphatase (38-126) U/L Total Protein (6.3-8.2) g/dL Albumin (3.5-5.0) g/dL Globulin (1.7-4.1) g/dL Albumin/Globulin Ratio (1.0-2.8) Lipase (23-300) U/L Salicylates (<20) mg/dL Urine Opiates Screen (Negative) Ur Oxycodone Screen (Negative) Urine Methadone Screen (Negative) Acetaminophen (10-30) ug/mL Ur Barbiturates Screen (Negative) U Tricyclic Antidepress (Negative) Ur Phencyclidine Scrn (Negative) Ur Amphetamines Screen (Negative) U Methamphetamines Scrn (Negative) Ur MDMA Scrn (Ecstasy) (Negative) U Benzodiazepines Scrn (Negative) Urine Cocaine Screen (Negative) U Marijuana (THC) Screen (Negative) Ethyl Alcohol 340 mg/dL Discharge Plan Departure Patient Disposition: Home Clinical Impression: Alcoholic intoxication, Dehydration Discharge Date/Time: 08/17/18 12:00 Interventions: ED Discharge Assessment Last Done: 08/17/18 12:22 Instructions: DI for Drug or Alcohol Withdrawal Activity Restrictions/Additional Instructions: Follow-up with the resources for alcohol abuse that was given to you by social work. If you are having worsening symptoms of alcohol withdrawal even with some medication return to the emergency department. Symptoms to look out for are increasing tremors, auditory or visual hallucinations, seizure activity, persistent vomiting or any other concerning signs or symptoms. Take medication as prescribed this medication can make you sleepy so do not drive, perform hazards activities or make any major decisions while taking it. If you are drinking alcohol do not take this medication. Prescriptions: New lorazepam [Ativan] 1 mg tablet 1 mg PO .see instructions PRN (Reason: alcohol withdrawal) Qty: 18 RF: 0 <Lise Arambula, - Last Filed: 08/17/18 18:59> Sign Out Provider Sign Out Attestation: Patient Sign Out occurred on 08/17/2018 at 7am. Patient's care was discussed, and care was transferred from Dr. Gibbons to Dr. Arambula. Labs were reviewed, plan for consultation with social work. Patient's etoh level was still higher than expected. Patient has been clearing mentally. Patient and I discussed he would like to try and remain sober and would like to have rx for prevention of withdrawl. Given ativan rx. Resources given by social work.
[2018-08-16 20:12] VITALS: BP 146/96; PULSE 100; RESP 16; TEMP 36.8; O2SAT 93
[2018-08-16] MEDS: SODIUM CHLORIDE 0.9% 1,000 ML 1000 ML IV (20:18)
[2018-08-16 20:48] LABS: Urine Amphetamines Negative (Negative); Urine Barbiturates Negative (Negative); Urine Benzodiazepines Positive (Negative); Urine Cocaine Negative (Negative); Urine MDMA Negative (Negative); Urine Methadone Negative (Negative); Urine Methamphetamines Negative (Negative); Urine Morphine/Opi cutoff 2000 Negative (Negative); Urine Oxycodone Negative (Negative); Urine Phencyclidine Negative (Negative); Urine Tetrahydrocannabinol Negative (Negative); Urine Tricyclic Antidepressant Negative (Negative)
[2018-08-16 20:53] LABS: Add Manual Diff / Slide Review NO; Basophils Percent Auto 0.7 % (0-2); Eosinophils Percent Auto 1.1 % (2-4); Hematocrit 55.2 % (41-53); Hemoglobin 19.2 g/dL (13.5-17.5); Lymphocytes Percent Auto 54.3 % (25-40); Mean Corpuscular HGB Conc 34.7 % (30-36); Mean Corpuscular Hemoglobin 30.9 PG (26-34); Mean Corpuscular Volume 89.1 fL (80-100); Neutrophils Absolute Auto 2500 /uL (3000-5900); Neutrophils Percent Auto 33.9 % (50-75); Platelet Count 332 X10^3/uL (150-400); Red Blood Cell Count 6.19 X10^6/uL (4.5-5.9); Red Cell Distribution Width 14.7 % (11.6-14.8); White Blood Cell Count 7.3 X10^3/uL (4.5-11.0)
[2018-08-16 21:01] LABS: Lactate (Lactic Acid) 1.6 mmol/L (0.7-2.1)
[2018-08-16 21:03] LABS: Acetaminophen < 10 ug/mL (10-30); Alanine Aminotransferase 35 IU/L (21-72); Albumin 4.6 g/dL (3.5-5.0); Albumin Globulin Ratio 1.4 (1.0-2.8); Alkaline Phosphatase 88 U/L (38-126); Aspartate Aminotransferase 40 IU/L (17-59); BUN Creatinine Ratio 17.8 (6-22); Bilirubin Total 0.9 mg/dL (0.2-1.3); Blood Urea Nitrogen 16 mg/dL (9-20); Calcium 8.5 mg/dL (8.4-10.2); Carbon Dioxide 27 mmol/L (22-32); Chloride 109 mmol/L (98-107); Estimated Glomerular Filt Rate > 60.0 mL/min (>60); Globulin 3.3 g/dL (1.7-4.1); Glucose 125 mg/dL (70-100); Lipase 77 U/L (23-300); Potassium 4.1 mmol/L (3.4-5.1); Sodium 155 mmol/L (137-145); Total Protein 7.9 g/dL (6.3-8.2)
[2018-08-16 21:08] VITALS: BP 137/81; PULSE 95; PULSE 97; RESP 17; RESP 27; O2SAT 96
[2018-08-16 21:10] LABS: Ethanol (ETOH) 435 mg/dL; HEMOLYSIS 43 (0-50); Salicylate < 1.0 mg/dL (<20)
[2018-08-16] MEDS: MAGNESIUM SULFATE 2 GM, FOLIC ACID 1 MG, THIAMINE 100 MG, MULTIVITAMIN 10 ML in SODIUM ... IV (22:10)
[2018-08-16 23:00] VITALS: BP 130/76; PULSE 86; RESP 20; O2SAT 95
[2018-08-17] VITALS (10 sets, daily range): BP systolic 113–159; BP diastolic 51–97; PULSE 84–100; RESP 11–95; TEMP 36.6; O2SAT 92–100
[2018-08-17 06:21] LABS: Add Manual Diff / Slide Review NO; Basophils Percent Auto 0.5 % (0-2); Eosinophils Percent Auto 0.8 % (2-4); Hematocrit 51.6 % (41-53); Hemoglobin 17.6 g/dL (13.5-17.5); Lymphocytes Percent Auto 41.6 % (25-40); Mean Corpuscular Hemoglobin 30.3 PG (26-34); Monocytes Percent Auto 6.8 % (3-14); Neutrophils Absolute Auto 3500 /uL (3000-5900); Neutrophils Percent Auto 50.3 % (50-75); Platelet Count 268 X10^3/uL (150-400); Red Cell Distribution Width 14.5 % (11.6-14.8)
[2018-08-17 06:25] LABS: Blood Urea Nitrogen 16 mg/dL (9-20); Calcium 8.2 mg/dL (8.4-10.2); Carbon Dioxide 27 mmol/L (22-32); Chloride 112 mmol/L (98-107); Estimated Glomerular Filt Rate > 60.0 mL/min (>60); Glucose 109 mg/dL (70-100); HEMOLYSIS 23 (0-50); Potassium 4.5 mmol/L (3.4-5.1); Sodium 155 mmol/L (137-145)
[2018-08-17 06:32] LABS: Ethanol (ETOH) 340 mg/dL
[2018-08-17] MEDS: LORazepam 2 MG/ML SYRINGE 1 MG IV ×2 (09:26→10:32)
[2018-08-17] MEDS: LORazepam 2 MG/ML SYRINGE 0.5 MG IV (11:23)
--- NOTE | 2018-08-17 11:26 | PC.NURSE ---
See ENTRY LEVEL TRUCK DRIVER note. No acute distress. Refused offer of inpatient detox / rehab.
--- NOTE | 2018-08-17 15:50 | CM.SWNOTE ---
Social Work Assessment Note: This HEAD PUMPER was called to the ER to respond to this 28 yo male, living with his brother and LUCIE in [place], EMS called to take him in last night after found drunk and peeing in his 13 yo nephew's dresser. Edi was found to have a BAL of 435 at 20:38 08/16 BAL of 340 at 0600 08/17. Met w/Edi, explained SW role. Edi was groggy but able to have a goal directed conversation and answer questions approximately. He smelled strongly of alcohol. He looked fairly well kept, normal speech, made good eye contact and was calm and cooperative during our brief conversation. Edi admits to binge drinking and states he does not drink daily. He works head of marketing adometry, at night, in [employer] (chart states [employer]). He says his boss knows about his h/o alcohol use. Edi is expected to be at work tonight. Edi would like to stay sober and had a long period of sobriety up until approx one month ago when he started binge drinking again. Edi states he is the most successful at staying sober when he attends AA mtgs nightly. Edi doesn't remember when he started drinking before coming in to the ER; or how much or with whom etc. Edi admits to long standing feelings of anxiety since his father 5 years ago. His brother Javier and LUCIE Red live locally and do not drink. Edi denies ever having MH, grief, and/or D/A counseling but admits to being prescribed Valium two years ago (by PCP?) which he states helped. Edi has not taken Valium for quite some time. Edi has no insurance, referral made to Catie, admissions counselor, for assist in applying for [employer]. TC placed to LUCIE Red who explained that she and her have given Edi a few chances and Edi is no longer welcome in their home or around their kids. Neda is suspicious of narcotic abuse, but can not confirm. Edi denies any other substance abuse, tox screen neg. This HEAD PUMPER gave Edi resources from the [employer] Community Resource Guide that included resources for ETOH treatment/recovery (encouraged Edi to go to [facility] for their drop in appts) , basic needs; food/[place] and provided the number for the [facility] (once he has Medicaid). Encouraged Edi to f/u on his [employer] and secure a PCP PRINCESS. Home when medically cleared w/ ETOH and [place] resources. JASVIR Vance
== END 2018-08-17 12:00 | disposition home or self-care (01) ==
PROVIDERS: Emergency Medicine; Emergency Provider Emergency Medicine
DX: F10.929 Alcohol use, unspecified with intoxication, unspecified (principal); E86.0 Dehydration
CPT/HCPCS: 36415; 80048; 80053; 80305; 80320; 80329; 83605; 83690; 85025; 93005; 96361; 96365; 96366; 96375; 96376; 99284; 99285; G0480; J2060; J3475

== ENCOUNTER 2019-02-10 17:21 | Emergency (ER) | payer OTHER, MEDICAID, SELFPAY ==
[2019-02-10 18:08] VITALS: BP 136/92; PULSE 118; RESP 18; TEMP 37.1; O2SAT 98
== END 2019-02-10 20:30 | disposition left against medical advice (07) ==
PROVIDERS: Emergency Provider Emergency Medicine
CPT/HCPCS: 99282

== ENCOUNTER 2019-02-11 09:16 | Emergency (ER) | payer OTHER, MEDICAID, SELFPAY ==
[2019-02-11] VITALS (7 sets, daily range): BP systolic 111–134; BP diastolic 52–80; PULSE 88–101; RESP 15–18; TEMP 36.9; O2SAT 95–100
--- NOTE | 2019-02-11 09:21 | ED.ALCOHOL ---
HPI - Alcohol General Chief Complaint: Medical Clearance Stated Complaint: medical clearance for detox Time Seen by Provider: 02/11/19 09:19 Source: patient, EMS and old records reviewed Mode of arrival: EMS Limitations: no limitations History of Present Illness HPI narrative: This is a 29-year-old male comes to the emergency department seeking detox. Patient states that he drinks alcohol regularly. He has also been taking Kratom. Patient states that his last drink was this morning about 6:00 a.m. he had a 5th of vodka. Patient states that he has been taking current time but last was in the last 2 or 3 days. He denies any other IV drugs. He denies any marijuana. He states that has a little bit of abdominal discomfort. He is feeling nauseated. He has not had any fevers. He denies any vomiting. Diarrhea, no constipation, no back flank pain. Patient denies any other past medical history. No prior surgeries. He to medications. He was here last night seeking clearance for detox and had been in contact with the detox center in [place] but there is very long wait times and left. Related Data Previous Rx's Medication Instructions Recorded lorazepam [Ativan] See Rx Instructions .ROUTE 02/11/19 .COMPLEX #10 tab Allergies Allergy/AdvReac Type Severity Reaction Status Date / Time No Known Drug Allergies Allergy Verified 02/11/19 09:25 Review of Systems Review of Systems ROS Unobtainable: All systems reviewed & are unremarkable except as noted in HPI and below Constitutional Denies chills, Denies fever(s), Denies lethargy and Denies weakness Cardiovascular Denies chest pain, Denies edema, Denies irregular heart rhythm, Denies lightheadedness, Denies palpitations, Denies dyspnea, Denies dyspnea on exertion and Denies orthopnea Respiratory Denies chest congestion, Denies cough, Denies excessive phlegm production, Denies pain on inspiration, Denies dyspnea, Denies dyspnea on exertion and Denies wheezing Gastrointestinal Gastrointestinal: Reports abdominal pain (generalized), Denies change in bowel habits, Denies diarrhea, Reports nausea and Denies vomiting Genitourinary Denies hematuria, Denies dysuria, Denies flank pain, Denies urinary frequency, Denies urinary incontinence and Denies urinary urgency Musculoskeletal Denies back pain Integumentary/Breasts Denies rash Neurologic Denies weakness Endocrine Denies palpitations Allergic/Immunologic Denies wheezing [facility], [facility]1983 Medical History Alcohol abuse (Acute) Kidney stones (Acute) Surgical History No pertinent past surgical history (Acute) Social History Smoking Status: Never smoker alcohol intake: former substance use type: does not use Social History Smoking Status: Never smoker alcohol intake: current substance use type: other Exam Narrative Exam Narrative: GEN: Obese male, alert and oriented x 3, patient appears to be in mild distress. HEENT: Atraumatic, pupils are equal round reactive to light, extraocular movements are intact. Throat is clear without any exudates, erythema, tonsillar enlargement or uvular deviation HEART: Regular rate and rhythm without murmur, clicks, rubs. LUNGS:Lungs clear to auscultation, no wheezes, rales, crackles, chest moves symmetrically. No tachypnea, no accessory muscle use. Patient had hiccups. ABD: Bowel sounds normal, soft, non-tender, no guarding, rebound, rigidity, no masses noted, no hepatosplenomegaly :No CVA tenderness MSCL: Non-tender, no muscle atrophy, muscles strength 5/5 upper and lower extremities, full range of motion, normal gait NEURO:CN 2-12 intact, sensation normal. Initial Vital Signs Initial Vital Signs: Vital Signs Temperature 98.4 F 02/11/19 09:15 Pulse Rate 89 02/11/19 09:15 Respiratory Rate 18 02/11/19 09:15 Blood Pressure 134/80 02/11/19 09:15 Pulse Oximetry 99 02/11/19 09:15 Course Orders Ordered: ED Orders 02/11/19 10:50 Urinalysis and Microscopic Stat Urine Drug Screen, Rapid Stat Discontinued Medications Lorazepam (Ativan) 2 mg PO NOW ONE Stop: 02/11/19 12:43 Last Admin: 02/11/19 13:02 Dose: 2 mg Ondansetron HCl (Zofran Odt) 4 mg SL NOW ONE Stop: 02/11/19 09:20 Last Admin: 02/11/19 09:32 Dose: 4 mg Vital Signs - 8 hr 02/11/19 12:00 02/11/19 12:30 02/11/19 13:30 Pulse Rate 101 H 96 H Respiratory Rate 18 Blood Pressure [Left Arm] 130/56 L 129/69 121/52 L Pulse Oximetry 99 100 02/11/19 14:00 02/11/19 14:30 Pulse Rate 95 H 101 H Respiratory Rate 15 Blood Pressure [Left Arm] 117/59 L 111/53 L Pulse Oximetry 98 95 MDM - Alcohol Lab Data Attestation: I reviewed the patient's lab results. Result diagrams: 02/11/19 09:40 02/11/19 09:40 Labs: Lab Results 02/11/19 02/11/19 02/11/19 Range/Units 09:40 09:40 09:40 WBC 9.7 (4.5-11.0) X10^3/uL RBC 5.58 (4.5-5.9) X10^6/uL Hgb 16.4 (13.5-17.5) g/dL Hct 49.1 (41-53) % MCV 87.9 (80-100) fL MCH 29.3 (26-34) PG MCHC 33.4 (30-36) % RDW 15.4 H (11.6-14.8) % Plt Count 523 H (150-400) X10^3/uL Neut % (Auto) 69.8 (50-75) % Lymph % (Auto) 23.7 L (25-40) % Boyle % (Auto) 5.0 (3-14) % Eos % (Auto) 0.3 L (2-4) % Baso % (Auto) 1.2 (0-2) % Neut # (Auto) 6800 (5953-1907) /uL Lymph # (Auto) 2300 (1568-4884) /uL Boyle # (Auto) 500 (0-900) /uL Eos # (Auto) 0 (0-450) /uL Baso # (Auto) 100 (0-100) /uL PT 12.0 (10.1-12.7) SECONDS INR 1.0 (0.9-1.3) Sodium 145 (137-145) mmol/L Potassium 4.2 (3.4-5.1) mmol/L Chloride 102 (98-107) mmol/L Carbon Dioxide 24 (22-32) mmol/L BUN 13 (9-20) mg/dL Creatinine 0.90 (0.66-1.25) mg/dL Estimated GFR > 60.0 (>60) mL/min BUN/Creatinine Ratio 14.4 (6-22) Glucose 94 (70-100) mg/dL Calcium 9.0 (8.4-10.2) mg/dL Total Bilirubin 0.5 (0.2-1.3) mg/dL AST 48 (17-59) IU/L ALT 46 (21-72) IU/L Alkaline Phosphatase 90 (38-126) U/L Total Protein 8.8 H (6.3-8.2) g/dL Albumin 4.9 (3.5-5.0) g/dL Globulin 3.9 (1.7-4.1) g/dL Albumin/Globulin Ratio 1.3 (1.0-2.8) Lipase 47 (23-300) U/L Urine Color Urine Appearance Urine pH (4.5-8.0) Ur Specific Bard (1.000-1.035) Urine Protein (Negative) Urine Glucose (UA) (Negative) g/dL Urine Ketones (NEGATIVE) Urine Occult Blood (Negative) Urine Nitrate (Negative) Urine Bilirubin (NEGATIVE) Urine Urobilinogen (0.2) E.U./dL Ur Leukocyte Esterase (NEGATIVE) Urine RBC (0-5/HPF) Urine WBC (0-5/HPF) Ur Squamous Epith Cells Urine Bacteria (None) Ur Culture Indicated? Urine Opiates Screen (Negative) Ur Oxycodone Screen (Negative) Urine Methadone Screen (Negative) Ur Barbiturates Screen (Negative) U Tricyclic Antidepress (Negative) Ur Phencyclidine Scrn (Negative) Ur Amphetamines Screen (Negative) U Methamphetamines Scrn (Negative) Ur MDMA Scrn (Ecstasy) (Negative) U Benzodiazepines Scrn (Negative) Urine Cocaine Screen (Negative) U Marijuana (THC) Screen (Negative) Ethyl Alcohol 398 mg/dL 02/11/19 02/11/19 Range/Units 10:50 10:50 WBC (4.5-11.0) X10^3/uL RBC (4.5-5.9) X10^6/uL Hgb (13.5-17.5) g/dL Hct (41-53) % MCV (80-100) fL MCH (26-34) PG MCHC (30-36) % RDW (11.6-14.8) % Plt Count (150-400) X10^3/uL Neut % (Auto) (50-75) % Lymph % (Auto) (25-40) % Boyle % (Auto) (3-14) % Eos % (Auto) (2-4) % Baso % (Auto) (0-2) % Neut # (Auto) (8644-8137) /uL Lymph # (Auto) (5578-9907) /uL Boyle # (Auto) (0-900) /uL Eos # (Auto) (0-450) /uL Baso # (Auto) (0-100) /uL PT (10.1-12.7) SECONDS INR (0.9-1.3) Sodium (137-145) mmol/L Potassium (3.4-5.1) mmol/L Chloride (98-107) mmol/L Carbon Dioxide (22-32) mmol/L BUN (9-20) mg/dL Creatinine (0.66-1.25) mg/dL Estimated GFR (>60) mL/min BUN/Creatinine Ratio (6-22) Glucose (70-100) mg/dL Calcium (8.4-10.2) mg/dL Total Bilirubin (0.2-1.3) mg/dL AST (17-59) IU/L ALT (21-72) IU/L Alkaline Phosphatase (38-126) U/L Total Protein (6.3-8.2) g/dL Albumin (3.5-5.0) g/dL Globulin (1.7-4.1) g/dL Albumin/Globulin Ratio (1.0-2.8) Lipase (23-300) U/L Urine Color Yellow Urine Appearance Clear Urine pH 6.0 (4.5-8.0) Ur Specific Bard <=1.005 (1.000-1.035) Urine Protein Negative (Negative) Urine Glucose (UA) Negative (Negative) g/dL Urine Ketones Negative (NEGATIVE) Urine Occult Blood Negative (Negative) Urine Nitrate Negative (Negative) Urine Bilirubin Negative (NEGATIVE) Urine Urobilinogen 0.2 (0.2) E.U./dL Ur Leukocyte Esterase Negative (NEGATIVE) Urine RBC None seen (0-5/HPF) Urine WBC None seen (0-5/HPF) Ur Squamous Epith Cells 0-1 /hpf Urine Bacteria None seen (None) Ur Culture Indicated? Cult not indicated Urine Opiates Screen Negative (Negative) Ur Oxycodone Screen Negative (Negative) Urine Methadone Screen Negative (Negative) Ur Barbiturates Screen Negative (Negative) U Tricyclic Antidepress Negative (Negative) Ur Phencyclidine Scrn Negative (Negative) Ur Amphetamines Screen Negative (Negative) U Methamphetamines Scrn Negative (Negative) Ur MDMA Scrn (Ecstasy) Negative (Negative) U Benzodiazepines Scrn Positive H (Negative) Urine Cocaine Screen Negative (Negative) U Marijuana (THC) Screen Negative (Negative) Ethyl Alcohol mg/dL MDM Narrative Medical decision making narrative: Patient states he is feeling a little shaky. He looks similar to when he arrived but patient does drink a 5th a day and came in with alcohol in the 390 range and alert and oriented with that number so Ativan p.o. was given 2 mg. Waiting call back from the crisis Center if he is accepted for alcohol detox. Patient was accepted for alcohol detox at [facility]. Rx for ativan taper given to and who is transporting patient. Discharge Plan Departure Patient Disposition: Home Clinical Impression: Alcohol abuse Discharge Date/Time: 02/11/19 14:57 Interventions: ED Discharge Assessment Last Done: 02/11/19 14:56 Activity Restrictions/Additional Instructions: Go directly to the crisis/detox center. Take the prescribed medications for your symptoms. Medications will be dispensed by the staff there. If you leave the Center you CANNOT take the extra medication home with you. Prescriptions: New lorazepam [Ativan] 1 mg tablet See Rx Instructions .ROUTE .COMPLEX Qty: 10 RF: 0
[2019-02-11] MEDS: ONDANSETRON 4 MG ODT SL (09:32)
[2019-02-11 09:51] LABS: Add Manual Diff / Slide Review NO; Basophils Absolute Auto 100 /uL (0-100); Basophils Percent Auto 1.2 % (0-2); Eosinophils Absolute Auto 0 /uL (0-450); Eosinophils Percent Auto 0.3 % (2-4); Hematocrit 49.1 % (41-53); Hemoglobin 16.4 g/dL (13.5-17.5); Lymphocytes Absolute Auto 2300 /uL (1100-4500); Lymphocytes Percent Auto 23.7 % (25-40); Mean Corpuscular HGB Conc 33.4 % (30-36); Mean Corpuscular Hemoglobin 29.3 PG (26-34); Mean Corpuscular Volume 87.9 fL (80-100); Monocytes Absolute Auto 500 /uL (0-900); Neutrophils Absolute Auto 6800 /uL (1500-7000); Neutrophils Percent Auto 69.8 % (50-75); Platelet Count 523 X10^3/uL (150-400); Red Blood Cell Count 5.58 X10^6/uL (4.5-5.9); Red Cell Distribution Width 15.4 % (11.6-14.8); White Blood Cell Count 9.7 X10^3/uL (4.5-11.0)
[2019-02-11 10:03] LABS: Alanine Aminotransferase 46 IU/L (21-72); Albumin 4.9 g/dL (3.5-5.0); Albumin Globulin Ratio 1.3 (1.0-2.8); Alkaline Phosphatase 90 U/L (38-126); Aspartate Aminotransferase 48 IU/L (17-59); BUN Creatinine Ratio 14.4 (6-22); Bilirubin Total 0.5 mg/dL (0.2-1.3); Blood Urea Nitrogen 13 mg/dL (9-20); Carbon Dioxide 24 mmol/L (22-32); Chloride 102 mmol/L (98-107); Estimated Glomerular Filt Rate > 60.0 mL/min (>60); Globulin 3.9 g/dL (1.7-4.1); Glucose 94 mg/dL (70-100); HEMOLYSIS < 15 (0-50); Lipase 47 U/L (23-300); Potassium 4.2 mmol/L (3.4-5.1); Sodium 145 mmol/L (137-145); Total Protein 8.8 g/dL (6.3-8.2)
[2019-02-11 10:11] LABS: Ethanol (ETOH) 398 mg/dL
[2019-02-11 11:13] LABS: Bacteria Urine None Seen; RBC Urine None Seen (0-5/HPF); WBC Urine None Seen (0-5/HPF)
[2019-02-11 11:14] LABS: Urine Amphetamines Negative (Negative); Urine Barbiturates Negative (Negative); Urine Benzodiazepines Positive (Negative); Urine Cocaine Negative (Negative); Urine MDMA Negative (Negative); Urine Methadone Negative (Negative); Urine Methamphetamines Negative (Negative); Urine Morphine/Opi cutoff 2000 Negative (Negative); Urine Oxycodone Negative (Negative); Urine Phencyclidine Negative (Negative); Urine Tetrahydrocannabinol Negative (Negative); Urine Tricyclic Antidepressant Negative (Negative)
[2019-02-11 11:15] LABS: Appearance Urine UA CLEAR; Bilirubin Urine UA NEGATIVE (NEGATIVE); Color Urine UA YELLOW; Glucose Urine UA NEGATIVE (Negative); Ketones Urine UA NEGATIVE (NEGATIVE); Leukocyte Esterase Urine UA NEGATIVE (NEGATIVE); Nitrite Urine UA NEGATIVE (Negative); Occult Blood Urine UA NEGATIVE (Negative); Protein Urine UA NEGATIVE (Negative); Specific Gravity Urine UA <=1.005 (1.000-1.035); Urobilinogen Urine UA 0.2 E.U./dL (0.2)
[2019-02-11 11:25] LABS: Culture Indicated Urine Cult Not Indicated; Squamous Epithelial Cell Urine 0-1 /HPF
--- NOTE | 2019-02-11 12:05 | PC.NURSE ---
[facility].
[2019-02-11] MEDS: LORazepam 0.5 MG TABLET 2 MG PO (13:02)
== END 2019-02-11 14:57 | disposition home or self-care (01) ==
PROVIDERS: Emergency Provider Emergency Medicine
DX: F10.10 Alcohol abuse, uncomplicated (principal)
CPT/HCPCS: 36415; 80053; 80305; 80320; 81001; 83690; 85025; 85610; 99283

== ENCOUNTER 2019-02-19 19:09 | Emergency (ER) | payer OTHER, MEDICAID, SELFPAY ==
[2019-02-19 19:14] VITALS: BP 138/86; PULSE 87; RESP 15; TEMP 37.3; O2SAT 96
--- NOTE | 2019-02-19 19:17 | ED_ITS ---
HPI - General Adult General Chief complaint: Toxicology Problem Stated complaint: ETOH Time Seen by Provider: 02/19/19 19:12 Source: patient and EMS Mode of arrival: EMS Limitations: other (Intoxication) History of Present Illness HPI narrative: Patient is a 29-year-old male brought in by EMS after they were called because he was lying down in front of the door of the place where he was staying. There was no reports of a fall however this could not be confirmed. There is no signs of trauma. Patient was nonverbal/unwilling/unable to provide any history. He arrived on a backboard not in a cervical collar. Related Data Previous Rx's Medication Instructions Recorded lorazepam [Ativan] See Rx Instructions .ROUTE 02/11/19 .COMPLEX #10 tab Allergies Allergy/AdvReac Type Severity Reaction Status Date / Time No Known Drug Allergies Allergy Verified 02/11/19 09:25 Review of Systems Review of Systems Patient unwilling/unable to provide any review of systems ROS Unobtainable: Unobtainable due to medical condition [facility] Medical History Alcohol abuse (Acute) Kidney stones (Acute) Social History Smoking Status: Never smoker alcohol intake: current substance use type: other Exam Initial Vital Signs Initial Vital Signs: Vital Signs Temperature 99.2 F 02/19/19 19:14 Pulse Rate 87 02/19/19 19:14 Respiratory Rate 15 02/19/19 19:14 Blood Pressure 138/86 02/19/19 19:14 Pulse Oximetry 96 02/19/19 19:14 Const General: No cooperative, well developed, well groomed and No acute distress Orientation: awake and other (Would not answer orientation questions) HENMT Head: normal to inspection and normocephalic Resp Effort & Inspection: normal respiratory effort Auscultation: clear to auscultation bilaterally Cardio Rate: regular rate Rhythm: regular rhythm GI Inspection: non-distended Palpation: soft Skin Lesions: no lesions Rashes: no rashes Neuro General: awake Extrem General: normal to inspection and capillary refill normal Psych Appearance: well kempt Scores GCS Emily coma scale eye opening: Spontaneous [place] coma scale verbal response: None Emily coma scale motor response: None Emily coma scale total score: 6 Course Orders Ordered: Discontinued Medications Lorazepam (Ativan) 2 mg PO NOW ONE Stop: 02/20/19 02:25 Last Admin: 02/20/19 02:29 Dose: 2 mg Vital Signs - 8 hr 02/19/19 23:50 02/20/19 01:56 02/20/19 03:57 Pulse Rate 98 H 94 H 114 H Respiratory Rate 20 18 14 Blood Pressure [Right Arm] 142/77 H 138/76 121/69 Pulse Oximetry 98 100 96 Medical Decision Making Lab Data Point of Care Testing Breathalizer 136 Point of care testing: Point of Care Testing Breathalizer [address] scan - head: Radiologist's impression: Patient: Edi Eagle [facility]#: [id number] : 1990Acct:[id number] Age/Sex: 29 / MDate of Service: 02/19/19 Loc: ED Accession Number: [id number] Procedure: CT head/brain wo con Ordering Provider: Anson Gibbons D.O. PROCEDURE: CT HEAD/BRAIN WO CON INDICATIONS: Unwitnessed fall TECHNIQUE: Noncontrast 4.5 mm thick angled axial sections acquired from the foramen magnum to the vertex, with coronal and sagittal reformats. For radiation dose reduction, the following was used: automated exposure control, adjustment of mA and/or kV according to patient size. COMPARISON: None. FINDINGS: Image quality: Excellent. CSF spaces: Basal cisterns are patent. No extra-axial fluid collections. Ventricles are normal in size and shape. Brain: No midline shift. No intracranial masses or hemorrhage. Gonzalez-white matter interface is normal. Skull and face: Calvarium and visualized facial bones are intact, without suspicious lesions. Sinuses: Mucous retention cyst in the right maxillary sinus. Visualized sinuses and mastoids are otherwise clear. IMPRESSION: No CT evidence of acute intracranial trauma. Dictated by: Tonya Cortez M.D. on 02/19/2019 at 20:46 Approved by: Tonya Cortez M.D. on 02/19/2019 at 20:[address]: Radiologist's impression: [address] [address] [address] Scan Report Signed Patient: Edi Eagle [facility]#: [id number] : 1990Acct:[id number] Age/Sex: 29 / MDate of Service: 02/19/19 Loc: ED Accession Number: [id number] Procedure: CT cervical spine wo con Ordering Provider: Anson Gibbons D.O. PROCEDURE: CT CERVICAL SPINE WO CON INDICATIONS: Unwitnessed fall TECHNIQUE: Noncontrast 3 mm thick sections acquired from the skull base to the T4 level. Sagittal and coronal reformats were then constructed. For radiation dose reduction, the following was used: automated exposure control, adjustment of mA and/or kV according to patient size. COMPARISON: None. FINDINGS: Image quality: Excellent. Bones: No fractures or dislocations. Normal disc spacing. Visualized superior ribs are intact. Soft tissues: Prevertebral soft tissues are normal in thickness. No paravertebral hematomas. No apical pneumothoraces. Mucus within the visualized right maxillary sinus. Moderately prominent adenoid pad. IMPRESSION: 1. No CT evidence of acute cervical fracture or subluxation. Dictated by: Tonya Cortez M.D. on 02/19/2019 at 20:40 Approved by: Tonya Cortez M.D. on 02/19/2019 at 20:[address] [facility] Narrative Medical decision making narrative: Patient has no signs of trauma. Head CT and cervical spine CT unremarkable. Was unwilling/unable to participate in his exam when he 1st arrived. After being here in the emergency department for several hours the patient began to be more cooperative. He stated that he did not remember being brought here to the emergency department. He did have some shaking. He states that he felt like he was going through withdrawal. He was given 2 mg of Ativan orally. He stated that he was interested in detox. He has no signs of other toxic ingestions. Denied any other toxic ingestion. Will attempt to find patient detox facility. Patient has had no further withdrawal symptoms. He has been sleeping comfortably after the Ativan. [facility] was [facility] and oriented. GCS of 15. Clinically sober. In my opinion has the capacity to make decisions. Ambulated around the emergency department without problems. Stated that he no longer wished to go to a detox/rehab facility. I feel like the patient he has the capacity to make decisions. Patient was informed that he could return to the emergency department at any time. He expressed understanding. Informed him that he should not drive for the next 24 hr or in the future if he were takes and intoxicating substances. He expressed understanding. Discharge Plan Departure Patient Disposition: Home Clinical Impression: Alcohol abuse Instructions: DI for Alcohol Abuse Activity Restrictions/Additional Instructions: I do recommend that you talk with your primary doctor about getting help for your alcohol issues. No driving for the next 24 hr or in the future if you partake in intoxicating substances. You can return to the emergency department for any new symptoms. Prescriptions: No Action lorazepam [Ativan] 1 mg tablet See Rx Instructions .ROUTE .COMPLEX Qty: 10 RF: 0
--- NOTE | 2019-02-19 19:47 | PC.NURSE ---
pt to ct with collar in place
--- NOTE | 2019-02-19 20:06 | PC.NURSE ---
pt is nonverbal. he responds appropriatley to commands, nods head yes and no. follows commands. is calm, quiet, and cooperative.
--- NOTE | 2019-02-19 20:10 | PC.NURSE ---
cleard from collar by epi
[2019-02-19 20:20] VITALS: BP 141/88; PULSE 99; RESP 18; O2SAT 97
--- NOTE | 2019-02-19 21:04 | PC.NURSE ---
Pt found to urinate self. Cleaned up with bed change and laurel care. Pt following amlik gardiner.
--- NOTE | 2019-02-19 21:05 | PC.NURSE ---
Pt is more awake now, still nonverbal. When asked if he can talk he shook his head no, when asked if he is usually nonverbal pt shook his head yes. Pt given a pad of paper and pen but did not write anything. When asked if he has anything to tell us he shook his head no.
[2019-02-19 21:10] VITALS: BP 133/78; PULSE 94; RESP 18; O2SAT 96
[2019-02-19 22:22] VITALS: BP 138/82; PULSE 101; RESP 19; O2SAT 96
[2019-02-19 23:50] VITALS: BP 142/77; PULSE 98; RESP 20; O2SAT 98
--- NOTE | 2019-02-20 | PC.NURSE ---
[facility] for detox peds. They stated we have lots of beds but no nurse until morning. Call back at 8 for intake.
[2019-02-20 01:56] VITALS: BP 138/76; PULSE 94; RESP 18; O2SAT 100
--- NOTE | 2019-02-20 01:57 | PC.NURSE ---
Pt is now verbal, easy to understand and using appropriate words. When asked why he didn't talk before he just shrugged his shoulders. Pt asked for and given ice water.
[2019-02-20] MEDS: LORazepam 0.5 MG TABLET 2 MG PO (02:29)
[2019-02-20 03:57] VITALS: BP 121/69; PULSE 114; RESP 14; O2SAT 96
--- NOTE | 2019-02-20 06:32 | PC.NURSE ---
Pt requested to leave and take self to [facility] in the morning. Provider notified. Pt is alert, calm and appropriate. Ambulates with a steady gate. Provider talked with patient and agreed to discharge. Pt is on feet in room gettin gdressed to leave. No stumbling or balance problems noted when pulling hoody over head getting dressed.
[2019-02-20 06:41] VITALS: BP 126/82; PULSE 99; RESP 16; O2SAT 99
== END 2019-02-20 06:42 | disposition home or self-care (01) ==
PROVIDERS: Emergency Provider Emergency Medicine
DX: F10.10 Alcohol abuse, uncomplicated (principal); W19.XXXA Unspecified fall, initial encounter
CPT/HCPCS: 70450; 72125; 82075; 99283; 99284

== ENCOUNTER 2019-04-02 12:47 | Emergency (ER) | payer OTHER, MEDICAID, SELFPAY ==
[2019-04-02 13:20] VITALS: BP 126/74; PULSE 112; RESP 20; TEMP 36.7; O2SAT 95
[2019-04-02 13:47] LABS: Add Manual Diff / Slide Review NO; Basophils Absolute Auto 100 /uL (0-100); Basophils Percent Auto 0.9 % (0-2); Eosinophils Absolute Auto 400 /uL (0-450); Eosinophils Percent Auto 4.7 % (2-4); Hematocrit 48.4 % (41-53); Hemoglobin 16.6 g/dL (13.5-17.5); Lymphocytes Absolute Auto 2800 /uL (1100-4500); Lymphocytes Percent Auto 31.7 % (25-40); Mean Corpuscular HGB Conc 34.2 % (30-36); Mean Corpuscular Hemoglobin 30.1 PG (26-34); Mean Corpuscular Volume 87.9 fL (80-100); Monocytes Absolute Auto 600 /uL (0-900); Monocytes Percent Auto 6.8 % (3-14); Neutrophils Absolute Auto 4900 /uL (1500-7000); Neutrophils Percent Auto 55.9 % (50-75); Platelet Count 327 X10^3/uL (150-400); Red Blood Cell Count 5.51 X10^6/uL (4.5-5.9); White Blood Cell Count 8.7 X10^3/uL (4.5-11.0)
[2019-04-02] MEDS: ONDANSETRON 4 MG/2 ML INJ IV ×2 (13:54→14:28)
[2019-04-02 13:55] LABS: Appearance Urine UA SL CLOUDY; Bilirubin Urine UA NEGATIVE (NEGATIVE); Color Urine UA RED; Glucose Urine UA NEGATIVE (Negative); Ketones Urine UA NEGATIVE (NEGATIVE); Leukocyte Esterase Urine UA 1+ (NEGATIVE); Nitrite Urine UA POSITIVE (Negative); Occult Blood Urine UA 3+ (Negative); Protein Urine UA 1+ (Negative); Urobilinogen Urine UA 0.2 E.U./dL (0.2)
[2019-04-02 13:57] LABS: Alanine Aminotransferase 22 IU/L (21-72); Albumin 4.8 g/dL (3.5-5.0); Albumin Globulin Ratio 1.4 (1.0-2.8); Alkaline Phosphatase 83 U/L (38-126); Aspartate Aminotransferase 25 IU/L (17-59); Bilirubin Total 0.5 mg/dL (0.2-1.3); Blood Urea Nitrogen 14 mg/dL (9-20); Calcium 9.3 mg/dL (8.4-10.2); Carbon Dioxide 20 mmol/L (22-32); Chloride 107 mmol/L (98-107); Estimated Glomerular Filt Rate > 60.0 mL/min (>60); Globulin 3.5 g/dL (1.7-4.1); Glucose 117 mg/dL (70-100); Potassium 4.2 mmol/L (3.4-5.1); Sodium 144 mmol/L (137-145); Total Protein 8.3 g/dL (6.3-8.2)
[2019-04-02 13:59] LABS: HEMOLYSIS 58 (0-50)
[2019-04-02 14:09] LABS: Bacteria Urine Few (2-10); Culture Indicated Urine Specimen Cultured; RBC Urine 30-100/HPF (0-5/HPF); Squamous Epithelial Cell Urine 0-1 /HPF (0-5/HPF); WBC Urine 1-5/HPF (0-5/HPF)
[2019-04-02 14:32] VITALS: BP 147/75; PULSE 101; RESP 18; O2SAT 95
[2019-04-02] MEDS: KETOROLAC 60 MG/2 ML VIAL 30 MG IV (14:56)
--- NOTE | 2019-04-02 15:26 | DI.CT.S_ITS ---
PROCEDURE: CT KIDNEY URETER BLADDER (KUB) INDICATIONS: hx stones, left abd pain TECHNIQUE: Noncontrast 5 mm thick sections acquired from the diaphragms to the symphysis. 5 mm thick coronal and sagittal reformats were then performed. For radiation dose reduction, the following was used: automated exposure control, adjustment of mA and/or kV according to patient size. COMPARISON: None. FINDINGS: Image quality: Excellent. Lung bases: Lung bases are clear. Heart size is normal. Urinary system: Both kidneys are normal in size. No kidney stones. No hydronephrosis or perinephric fat stranding. Both ureters appear non-dilated throughout their expected courses. Bladder wall thickness is normal; no calcified bladder stones. Other solid organs: Liver is normal in size. Gallbladder is normal. Pancreas is normal in contours. Spleen is normal in size. No adrenal nodules. Peritoneum and bowel: Unenhanced bowel loops demonstrate normal wall thickness and caliber. No free fluid or air. The visualized appendix appears normal. Nodes and vessels: No retroperitoneal or mesenteric adenopathy by size criteria. Aorta and inferior vena cava are normal in caliber. Abdominal wall: No ventral hernias. Pelvis: No free pelvic fluid. No inguinal hernias or adenopathy. Bones: No suspicious bony lesions. No acute vertebral body compression fractures. 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 IMPRESSION: CT abdomen and pelvis without acute abnormalities. No evidence for urolithiasis or obstructive uropathy. Normal appendix. Dictated by: Alexander Sanchez M.D. on 04/02/2019 at 16:57 Approved by: Alexander Sanchez M.D. on 04/02/2019 at 16:59
--- NOTE | 2019-04-02 15:46 | ED_ITS ---
HPI - Abdominal Pain <RONAL Ward - Last Filed: 04/02/19 19:55> General Chief Complaint: Abdominal Pain Stated Complaint: Abdominal pain lower Time Seen by Provider: 04/02/19 15:15 Source: patient Mode of arrival: ambulatory Limitations: no limitations History of Present Illness HPI narrative: The patient is a 29-year-old male with history of alcohol abuse and kidney stones who presents with a chief complaint of left lower quadrant pain consistent with his previous kidney stones. States it started last night. He has taken 2 doses of ibuprofen. He states the pain comes and goes along with nausea and vomiting. He states is acting exactly like his previous kidney stone. He denies any fevers. Denies any chest pain shortness of breath cough or congestion. He denies any dysuria urgency or frequency. Related Data Allergies Allergy/AdvReac Type Severity Reaction Status Date / Time tramadol Allergy Rash Verified 04/06/19 16:14 Review of Systems <RONAL Ward - Last Filed: 04/02/19 19:55> Review of Systems GENERAL: Denies chills, fatigue, malaise, fever, sweats. HEENT: Denies sinus pain, ear pain, sore throat, difficulty swallowing, dizziness. RESPIRATORY: Denies dyspnea, cough, wheezing, hemoptysis, sputum. CARDIOVASCULAR: Denies chest pain, palpitations, orthopnea, edema, GASTROINTESTINAL: See HPI : See HPI MUSCULOSKELETAL: denies weakness, joint pain, or bony pain SKIN: Denies rash, skin lesions, or other NEUROLOGIC: Denies weakness, headache, numbness, change in speech, confusion, seizures, incoordination. PSYCHIATRIC: No concerning psychosocial issues. 12 point review of systems is negative except for those stated above PFSH <RONAL Ward - Last Filed: 04/02/19 19:55> Medical History Alcohol abuse (Acute) Kidney stones (Acute) Surgical History No pertinent past surgical history (Acute) Social History Smoking Status: Never smoker alcohol intake: current substance use type: other Social History household members: friend(s) Smoking Status: Never smoker alcohol intake: current substance use type: other Exam <LORRI Ward-BC - Last Filed: 04/02/19 19:55> Narrative Exam Narrative: GENERAL: This is a well-nourished, well-developed patient, sitting on stretcher HEAD: Atraumatic. Normocephalic. No temporal or scalp tenderness. EYES: Pupils equal round and reactive. Extraocular motions intact. No scleral icterus. No injection or drainage. ENT: Nose without bleeding, purulent drainage or septal hematoma. Throat without erythema, tonsillar hypertrophy or exudate. Uvula midline. Airway patent. NECK: Trachea midline. No JVD or lymphadenopathy. Supple, nontender, no meningeal signs. CARDIOVASCULAR: Regular rate and rhythm without murmurs, gallops, or rubs. RESPIRATORY: Clear to auscultation. Breath sounds equal bilaterally. No wheezes, rales, or rhonchi. No cough. No increased respiratory effort. No accessory muscle use. GASTROINTESTINAL: Abdomen soft, nondistended. No hepato-splenomegaly, or palpable masses. pain to palpation left lower quadrant. Active bowel sounds all 4 quadrants. EXTREMITIES: No clubbing, cyanosis, or edema. No joint tenderness, effusion, or edema noted. BACK: Nontender without deformity or crepitance. Flank tenderness and right- sided. No CVA tenderness left side. NEURO: AOx3. SKIN: No rash or erythema. Initial Vital Signs Initial Vital Signs: Vital Signs Temperature 98.1 F 04/02/19 13:20 Pulse Rate 112 H 04/02/19 13:20 Respiratory Rate 20 04/02/19 13:20 Blood Pressure 126/74 04/02/19 13:20 Pulse Oximetry 95 04/02/19 13:20 <Lise Arambula DO - Last Filed: 04/08/19 19:06> Initial Vital Signs Initial Vital Signs: Vital Signs Temperature 98.1 F 04/02/19 13:20 Pulse Rate 112 H 04/02/19 13:20 Respiratory Rate 20 04/02/19 13:20 Blood Pressure 126/74 04/02/19 13:20 Pulse Oximetry 95 04/02/19 13:20 Course <FLORI WardP-BC - Last Filed: 04/02/19 19:55> Orders Ordered: Discontinued Medications Hydromorphone HCl (Dilaudid) 0.5 mg IV NOW ONE Stop: 04/02/19 15:29 Last Admin: 04/02/19 15:47 Dose: 0.5 mg Hydromorphone HCl (Dilaudid) 0.5 mg IV NOW ONE Stop: 04/02/19 16:39 Last Admin: 04/02/19 16:39 Dose: 0.5 mg Ketorolac Tromethamine (Toradol) 30 mg IV NOW ONE Stop: 04/02/19 14:56 Last Admin: 04/02/19 14:56 Dose: 30 mg Ondansetron HCl (Zofran) 4 mg IV NOW ONE Stop: 04/02/19 13:24 Last Admin: 04/02/19 13:54 Dose: 4 mg Ondansetron HCl (Zofran) 4 mg IV NOW ONE Stop: 04/02/19 14:28 Last Admin: 04/02/19 14:28 Dose: 4 mg Vital Signs - 8 hr 04/02/19 13:20 04/02/19 14:32 04/02/19 15:51 Temperature 98.1 F Pulse Rate 112 H 101 H 92 H Respiratory Rate 20 18 18 Blood Pressure 126/74 Blood Pressure [Left Arm] 147/75 H 144/59 H Pulse Oximetry 95 95 94 04/02/19 16:50 Temperature Pulse Rate 90 Respiratory Rate 18 Blood Pressure Blood Pressure [Left Arm] 126/64 Pulse Oximetry 100 <Lise Arambula DO - Last Filed: 04/08/19 19:06> Orders Ordered: Discontinued Medications Hydromorphone HCl (Dilaudid) 0.5 mg IV NOW ONE Stop: 04/02/19 15:29 Last Admin: 04/02/19 15:47 Dose: 0.5 mg Hydromorphone HCl (Dilaudid) 0.5 mg IV NOW ONE Stop: 04/02/19 16:39 Last Admin: 04/02/19 16:39 Dose: 0.5 mg Ketorolac Tromethamine (Toradol) 30 mg IV NOW ONE Stop: 04/02/19 14:56 Last Admin: 04/02/19 14:56 Dose: 30 mg Ondansetron HCl (Zofran) 4 mg IV NOW ONE Stop: 04/02/19 13:24 Last Admin: 04/02/19 13:54 Dose: 4 mg Ondansetron HCl (Zofran) 4 mg IV NOW ONE Stop: 04/02/19 14:28 Last Admin: 04/02/19 14:28 Dose: 4 mg Vital Signs - 8 hr 04/02/19 13:20 04/02/19 14:32 04/02/19 15:51 Temperature 98.1 F Pulse Rate 112 H 101 H 92 H Respiratory Rate 20 18 18 Blood Pressure 126/74 Blood Pressure [Left Arm] 147/75 H 144/59 H Pulse Oximetry 95 95 94 04/02/19 16:50 Temperature Pulse Rate 90 Respiratory Rate 18 Blood Pressure Blood Pressure [Left Arm] 126/64 Pulse Oximetry 100 MDM - Abdominal Pain <LORRI Ward-BC - Last Filed: 04/02/19 19:55> Lab Data Result diagrams: 04/02/19 13:40 04/02/19 13:40 Lab Results 04/02/19 04/02/19 04/02/19 Range/Units 13:40 13:40 13:44 WBC 8.7 (4.5-11.0) X10^3/uL RBC 5.51 (4.5-5.9) X10^6/uL Hgb 16.6 (13.5-17.5) g/dL Hct 48.4 (41-53) % MCV 87.9 (80-100) fL MCH 30.1 (26-34) PG MCHC 34.2 (30-36) % RDW 14.0 (11.6-14.8) % Plt Count 327 (150-400) X10^3/uL Neut % (Auto) 55.9 (50-75) % Lymph % (Auto) 31.7 (25-40) % [place] % (Auto) 6.8 (3-14) % Eos % (Auto) 4.7 H (2-4) % Baso % (Auto) 0.9 (0-2) % Neut # (Auto) 4900 (4100-4755) /uL Lymph # (Auto) 2800 (9687-0441) /uL [place] # (Auto) 600 (0-900) /uL Eos # (Auto) 400 (0-450) /uL Baso # (Auto) 100 (0-100) /uL Sodium 144 (137-145) mmol/L Potassium 4.2 (3.4-5.1) mmol/L Chloride 107 (98-107) mmol/L Carbon Dioxide 20 L (22-32) mmol/L BUN 14 (9-20) mg/dL Creatinine 0.70 (0.66-1.25) mg/dL Estimated GFR > 60.0 (>60) mL/min BUN/Creatinine Ratio 20.0 (6-22) Glucose 117 H (70-100) mg/dL Calcium 9.3 (8.4-10.2) mg/dL Total Bilirubin 0.5 (0.2-1.3) mg/dL AST 25 (17-59) IU/L ALT 22 (21-72) IU/L Alkaline Phosphatase 83 (38-126) U/L Total Protein 8.3 H (6.3-8.2) g/dL Albumin 4.8 (3.5-5.0) g/dL Globulin 3.5 (1.7-4.1) g/dL Albumin/Globulin Ratio 1.4 (1.0-2.8) Urine Color Red Urine Appearance Sl cloudy Urine pH 5.0 (4.5-8.0) Ur Specific [place] 1.010 (1.000-1.035) Urine Protein 1+ H (Negative) Urine Glucose (UA) Negative (Negative) g/dL Urine Ketones Negative (NEGATIVE) Urine Occult Blood 3+ H (Negative) Urine Nitrate Positive (Negative) Urine Bilirubin Negative (NEGATIVE) Urine Urobilinogen 0.2 (0.2) E.U./dL Ur Leukocyte Esterase 1+ H (NEGATIVE) Urine RBC 30-100/hpf H (0-5/HPF) Urine WBC 1-5/hpf (0-5/HPF) Ur Squamous Epith Cells 0-1 /hpf (0-5/HPF) Urine Bacteria Few (2-10) H (None) Ur Culture Indicated? Specimen cultured Imaging Data CT scan - abdomen: Radiologist's impression: [address] [address] [address] Scan Report Signed Patient: Edi Eagle [facility]#: [id number] : 1990Acct:[id number] Age/Sex: 29 / MDate of Service: 04/02/19 Loc: ED Accession Number: [id number] Procedure: CT kidney ureter bladder (KUB) Ordering Provider: Lise Rae PROCEDURE: CT KIDNEY URETER BLADDER (KUB) INDICATIONS: hx stones, left abd pain TECHNIQUE: Noncontrast 5 mm thick sections acquired from the diaphragms to the symphysis. 5 mm thick coronal and sagittal reformats were then performed. For radiation dose reduction, the following was used: automated exposure control, adjustment of mA and/or kV according to patient size. COMPARISON: None. FINDINGS: Image quality: Excellent. Lung bases: Lung bases are clear. Heart size is normal. Urinary system: Both kidneys are normal in size. No kidney stones. No hydronephrosis or perinephric fat stranding. Both ureters appear non-dilated throughout their expected courses. Bladder wall thickness is normal; no calcified bladder stones. Other solid organs: Liver is normal in size. Gallbladder is normal. Pancreas is normal in contours. Spleen is normal in size. No adrenal nodules. Peritoneum and bowel: Unenhanced bowel loops demonstrate normal wall thickness and caliber. No free fluid or air. The visualized appendix appears normal. Nodes and vessels: No retroperitoneal or mesenteric adenopathy by size criteria. Aorta and inferior vena cava are normal in caliber. Abdominal wall: No ventral hernias. Pelvis: No free pelvic fluid. No inguinal hernias or adenopathy. Bones: No suspicious bony lesions. No acute vertebral body compression fractures. 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 IMPRESSION: CT abdomen and pelvis without acute abnormalities. No evidence for urolithiasis or obstructive uropathy. Normal appendix. Dictated by: Alexander Sanchez M.D. on 04/02/2019 at 16:57 Approved by: Alexander Sanchez M.D. on 04/02/2019 at 16:59 MDM Narrative Medical decision making narrative: The patient is a 29-year-old male who presents with chief complaint of having another kidney stone. He has a normal CT KUB. He has a normal appendix. He does have signs of infection in his urine including nitrates. Thus I am placing him on Levaquin for UTI coverage. I have given a prescription of Aleve, with strict instructions to not combine it with any other NSAIDs. I have given him a prescription of Zofran. Discussed at length return precautions a fever, worsening pain etc.. Patient is hemodynamically stable throughout stay in the emergency department. No questions or concerns upon discharge. Patient was given contact information for [facility] human resources benefits assistant. <Lise Ofelia Arambula, DO - Last Filed: 04/08/19 19:06> Lab Data Lab Results 04/02/19 04/02/19 04/02/19 Range/Units 13:40 13:40 13:44 WBC 8.7 (4.5-11.0) X10^3/uL RBC 5.51 (4.5-5.9) X10^6/uL Hgb 16.6 (13.5-17.5) g/dL Hct 48.4 (41-53) % MCV 87.9 (80-100) fL MCH 30.1 (26-34) PG MCHC 34.2 (30-36) % RDW 14.0 (11.6-14.8) % Plt Count 327 (150-400) X10^3/uL Neut % (Auto) 55.9 (50-75) % Lymph % (Auto) 31.7 (25-40) % [place] % (Auto) 6.8 (3-14) % Eos % (Auto) 4.7 H (2-4) % Baso % (Auto) 0.9 (0-2) % Neut # (Auto) 4900 (8927-3245) /uL Lymph # (Auto) 2800 (5757-7613) /uL [place] # (Auto) 600 (0-900) /uL Eos # (Auto) 400 (0-450) /uL Baso # (Auto) 100 (0-100) /uL Sodium 144 (137-145) mmol/L Potassium 4.2 (3.4-5.1) mmol/L Chloride 107 (98-107) mmol/L Carbon Dioxide 20 L (22-32) mmol/L BUN 14 (9-20) mg/dL Creatinine 0.70 (0.66-1.25) mg/dL Estimated GFR > 60.0 (>60) mL/min BUN/Creatinine Ratio 20.0 (6-22) Glucose 117 H (70-100) mg/dL Calcium 9.3 (8.4-10.2) mg/dL Total Bilirubin 0.5 (0.2-1.3) mg/dL AST 25 (17-59) IU/L ALT 22 (21-72) IU/L Alkaline Phosphatase 83 (38-126) U/L Total Protein 8.3 H (6.3-8.2) g/dL Albumin 4.8 (3.5-5.0) g/dL Globulin 3.5 (1.7-4.1) g/dL Albumin/Globulin Ratio 1.4 (1.0-2.8) Urine Color Red Urine Appearance Sl cloudy Urine pH 5.0 (4.5-8.0) Ur Specific [place] 1.010 (1.000-1.035) Urine Protein 1+ H (Negative) Urine Glucose (UA) Negative (Negative) g/dL Urine Ketones Negative (NEGATIVE) Urine Occult Blood 3+ H (Negative) Urine Nitrate Positive (Negative) Urine Bilirubin Negative (NEGATIVE) Urine Urobilinogen 0.2 (0.2) E.U./dL Ur Leukocyte Esterase 1+ H (NEGATIVE) Urine RBC 30-100/hpf H (0-5/HPF) Urine WBC 1-5/hpf (0-5/HPF) Ur Squamous Epith Cells 0-1 /hpf (0-5/HPF) Urine Bacteria Few (2-10) H (None) Ur Culture Indicated? Specimen cultured Discharge Plan Departure Patient Disposition: Home Clinical Impression: Acute UTI Abdominal pain Qualifiers: Abdominal location: generalized Qualified Code(s): R10.84 - Generalized abdominal pain Discharge Date/Time: 04/02/19 17:39 Interventions: ED Discharge Assessment Last Done: 04/02/19 17:38 Instructions: DI for Urinary Tract Infection (UTI), DI for Abdominal Pain-Adult Activity Restrictions/Additional Instructions: Your abdominal CT came back normal today. Given that you have slight bacteria as well as nitrates in her urine, I am starting treatment for urinary tract infection. Please monitor for fever, inability keep down fluids. Please follow up with primary care provider soon as possible. You can contact the health human resources benefits assistant at [phone]. Please come back to the emergency department if needed. <Lise Arambula DO - Last Filed: 04/08/19 19:06> Cosign ED Attending Luis Attestation: I was immediately available in the department for consultation. This documentation has been reviewed. Supervised by Lise Arambula DO
[2019-04-02] MEDS: HYDROMORPHONE 1 MG INJ 0.5 MG IV ×2 (15:47→16:39)
[2019-04-02 15:51] VITALS: BP 144/59; PULSE 92; RESP 18; O2SAT 94
[2019-04-02 16:50] VITALS: BP 126/64; PULSE 90; RESP 18; O2SAT 100
--- NOTE | 2019-04-05 07:50 | PC.NURSE ---
called [facility], spoke with rina, , just waiting for paperwork from [place]. updated that pt went home, at de pt agrees to go to [facility].
== END 2019-04-02 17:39 | disposition home or self-care (01) ==
PROVIDERS: Emergency Provider Nurse Practitioner Family
DX: N39.0 Urinary tract infection, site not specified (principal); R10.32 Left lower quadrant pain
CPT/HCPCS: 36591; 74176; 80053; 81001; 85025; 87086; 96374; 96375; 96376; 99283; 99284; J1170; J1885; J2405

== ENCOUNTER 2019-04-04 20:45 | Emergency (ER) | payer OTHER, MEDICAID, SELFPAY ==
[2019-04-04 21:27] VITALS: BP 155/101; PULSE 97; RESP 18; TEMP 36.7; O2SAT 97; BMI 38.0
[2019-04-05] VITALS (10 sets, daily range): BP systolic 92–137; BP diastolic 38–90; PULSE 85–97; RESP 16–19; O2SAT 95–96
--- NOTE | 2019-04-05 00:39 | ED.ALCOHOL ---
HPI - Alcohol General Chief Complaint: Toxicology Problem Stated Complaint: ALTERED MENTAL STATUS, LETHARGIC Time Seen by Provider: 04/05/19 00:34 Source: patient Mode of arrival: ambulatory Limitations: no limitations History of Present Illness HPI narrative: Patient is a 21-year-old male stating that he is in alcohol withdrawal. He drinks a 5th vodka daily he drank a 5th 2 hours ago. States he shaky although he is not shaky not tachycardic. He states that he wants help. He has actually seen and evaluated here just a few days ago diagnosed with UTI. Related Data Previous Rx's Medication Instructions Recorded lorazepam [Ativan] See Rx Instructions .ROUTE 02/11/19 .COMPLEX #10 tab levofloxacin 750 mg PO DAILY #7 tab 04/02/19 naproxen 500 mg PO BID PRN #20 tab 04/02/19 ondansetron 4 mg PO TID-QID PRN #20 tab 04/02/19 lorazepam [Ativan] 1 mg PO QD-BID #10 tab 04/05/19 Allergies Allergy/AdvReac Type Severity Reaction Status Date / Time tramadol Allergy Rash Verified 04/04/19 21:27 Review of Systems Review of Systems ROS Unobtainable: All systems reviewed & are unremarkable except as noted in HPI and below Constitutional Denies chills, Denies fever(s), Denies lethargy and Denies weakness Eyes Denies change in vision, Denies eye discharge, Denies irritation and Denies loss of vision ENT Ears, Nose, Mouth, and Throat: Denies change in voice, Denies neck pain and Denies sore throat Cardiovascular Denies chest pain, Denies irregular heart rhythm, Denies lightheadedness, Denies palpitations, Denies dyspnea, Denies dyspnea on exertion and Denies orthopnea Respiratory Denies cough, Denies dyspnea, Denies dyspnea on exertion and Denies wheezing Gastrointestinal Gastrointestinal: Denies abdominal pain, Denies change in bowel habits, Denies diarrhea, Denies nausea and Denies vomiting Musculoskeletal Denies neck pain Integumentary/Breasts Denies pruritus, Denies erythema, Denies rash and Denies wounds Neurologic Denies loss of vision and Denies weakness Psychiatric Reports as per HPI Endocrine Denies palpitations Allergic/Immunologic Denies wheezing [facility] Medical History Alcohol abuse (Acute) Kidney stones (Acute) Surgical History No pertinent past surgical history (Acute) Social History Smoking Status: Never smoker alcohol intake: current substance use type: other Social History Smoking Status: Never smoker alcohol intake: current substance use type: other Exam Initial Vital Signs Initial Vital Signs: Vital Signs Temperature 98.0 F 04/04/19 21:27 Pulse Rate 97 H 04/04/19 21:27 Respiratory Rate 18 04/04/19 21:27 Blood Pressure 155/101 H 04/04/19 21:27 Pulse Oximetry 97 04/04/19 21:27 GENERAL: Alert quiet flat affect HEENT: Head atraumatic,EOMI, pupils reactive CARDIOVASCULAR: Regular rate and rhythm without murmurs, rubs or gallops. RESPIRATORY: Breath sounds equal bilaterally, no wheezes rales or rhonchi. ABDOMEN: Soft, nontender. Normoactive bowel sounds all 4 quadrants. No guarding or rebound. EXTREMITIES: Normal range of motion, no clubbing or edema. Neurovascularly intact NEUROLOGICAL: Alert and oriented. speech normal no aphasia or dysarthria, no asterixis SKIN: Warm, dry, no laceration, no petechiae, no rashes or lesions. Course Orders Ordered: Discontinued Medications Lorazepam (Ativan) 1 mg IV NOW ONE Stop: 04/05/19 03:31 Last Admin: 04/05/19 03:35 Dose: 1 mg Lorazepam (Ativan) 1 mg IV NOW ONE Stop: 04/05/19 04:28 Last Admin: 04/05/19 04:31 Dose: 1 mg Vital Signs - 8 hr 04/05/19 01:40 04/05/19 02:10 04/05/19 02:20 Pulse Rate 96 H 89 86 Respiratory Rate 18 19 16 Blood Pressure [Right Arm] 126/62 115/68 92/38 L Pulse Oximetry 96 96 95 04/05/19 02:50 04/05/19 03:56 04/05/19 04:36 Pulse Rate 88 92 H 97 H Respiratory Rate 17 17 16 Blood Pressure [Right Arm] 115/90 137/73 132/63 Pulse Oximetry 95 96 96 04/05/19 05:00 04/05/19 05:30 04/05/19 06:00 Pulse Rate 85 96 H 93 H Respiratory Rate 16 18 19 Blood Pressure [Right Arm] 115/83 124/63 126/53 L Pulse Oximetry 96 96 95 MDM - Alcohol Lab Data Attestation: I reviewed the patient's lab results. Result diagrams: 04/05/19 00:53 04/05/19 00:53 Labs: Lab Results 04/05/19 04/05/19 04/05/19 Range/Units 00:53 00:53 03:49 WBC 9.3 (4.5-11.0) X10^3/uL RBC 5.75 (4.5-5.9) X10^6/uL Hgb 16.7 (13.5-17.5) g/dL Hct 50.3 (41-53) % MCV 87.5 (80-100) fL MCH 29.1 (26-34) PG MCHC 33.2 (30-36) % RDW 14.3 (11.6-14.8) % Plt Count 328 (150-400) X10^3/uL Neut % (Auto) 58.8 (50-75) % Lymph % (Auto) 35.3 (25-40) % [place] % (Auto) 4.5 (3-14) % Eos % (Auto) 0.6 L (2-4) % Baso % (Auto) 0.8 (0-2) % Neut # (Auto) 5500 (3199-2248) /uL Lymph # (Auto) 3300 (6632-9781) /uL [place] # (Auto) 400 (0-900) /uL Eos # (Auto) 100 (0-450) /uL Baso # (Auto) 100 (0-100) /uL Sodium 146 H (137-145) mmol/L Potassium 4.0 (3.4-5.1) mmol/L Chloride 106 (98-107) mmol/L Carbon Dioxide 25 (22-32) mmol/L BUN 14 (9-20) mg/dL Creatinine 0.70 (0.66-1.25) mg/dL Estimated GFR > 60.0 (>60) mL/min BUN/Creatinine Ratio 20.0 (6-22) Glucose 101 H (70-100) mg/dL Calcium 8.4 (8.4-10.2) mg/dL Magnesium 1.9 (1.6-2.3) mg/dL Total Bilirubin 0.9 (0.2-1.3) mg/dL AST 30 (17-59) IU/L ALT 30 (21-72) IU/L Alkaline Phosphatase 72 (38-126) U/L Total Protein 8.0 (6.3-8.2) g/dL Albumin 4.7 (3.5-5.0) g/dL Globulin 3.3 (1.7-4.1) g/dL Albumin/Globulin Ratio 1.4 (1.0-2.8) Lipase 37 (23-300) U/L Urine RBC (0-5/HPF) Urine WBC (0-5/HPF) Ur Squamous Epith Cells (0-5/HPF) Urine Bacteria (None) Urine Mucus (Negative) Ur Culture Indicated? Urine Opiates Screen Negative (Negative) Ur Oxycodone Screen Negative (Negative) Urine Methadone Screen Negative (Negative) Ur Barbiturates Screen Negative (Negative) U Tricyclic Antidepress Negative (Negative) Ur Phencyclidine Scrn Negative (Negative) Ur Amphetamines Screen Negative (Negative) U Methamphetamines Scrn Negative (Negative) Ur MDMA Scrn (Ecstasy) Negative (Negative) U Benzodiazepines Scrn Negative (Negative) Urine Cocaine Screen Negative (Negative) U Marijuana (THC) Screen Negative (Negative) Ethyl Alcohol 284 mg/dL 04/05/19 Range/Units 03:49 WBC (4.5-11.0) X10^3/uL RBC (4.5-5.9) X10^6/uL Hgb (13.5-17.5) g/dL Hct (41-53) % MCV (80-100) fL MCH (26-34) PG MCHC (30-36) % RDW (11.6-14.8) % Plt Count (150-400) X10^3/uL Neut % (Auto) (50-75) % Lymph % (Auto) (25-40) % [place] % (Auto) (3-14) % Eos % (Auto) (2-4) % Baso % (Auto) (0-2) % Neut # (Auto) (8855-8395) /uL Lymph # (Auto) (9891-3516) /uL [place] # (Auto) (0-900) /uL Eos # (Auto) (0-450) /uL Baso # (Auto) (0-100) /uL Sodium (137-145) mmol/L Potassium (3.4-5.1) mmol/L Chloride (98-107) mmol/L Carbon Dioxide (22-32) mmol/L BUN (9-20) mg/dL Creatinine (0.66-1.25) mg/dL Estimated GFR (>60) mL/min BUN/Creatinine Ratio (6-22) Glucose (70-100) mg/dL Calcium (8.4-10.2) mg/dL Magnesium (1.6-2.3) mg/dL Total Bilirubin (0.2-1.3) mg/dL AST (17-59) IU/L ALT (21-72) IU/L Alkaline Phosphatase (38-126) U/L Total Protein (6.3-8.2) g/dL Albumin (3.5-5.0) g/dL Globulin (1.7-4.1) g/dL Albumin/Globulin Ratio (1.0-2.8) Lipase (23-300) U/L Urine RBC 10-30/hpf H (0-5/HPF) Urine WBC None seen (0-5/HPF) Ur Squamous Epith Cells 1-5 /hpf (0-5/HPF) Urine Bacteria None seen (None) Urine Mucus 2+ H (Negative) Ur Culture Indicated? Cult not indicated Urine Opiates Screen (Negative) Ur Oxycodone Screen (Negative) Urine Methadone Screen (Negative) Ur Barbiturates Screen (Negative) U Tricyclic Antidepress (Negative) Ur Phencyclidine Scrn (Negative) Ur Amphetamines Screen (Negative) U Methamphetamines Scrn (Negative) Ur MDMA Scrn (Ecstasy) (Negative) U Benzodiazepines Scrn (Negative) Urine Cocaine Screen (Negative) U Marijuana (THC) Screen (Negative) Ethyl Alcohol mg/dL Urine Dip Bedside Urine Glucose Negative Bedside Urine Bilirubin - Negative Bedside Urine Ketone - Negative Urine Specific [place] 1.030 Bedside Urine Occult Blood +++ Bedside Urine pH 5.5 Bedside Urine Protein + 30 Bedside Urine Urobilinogen - Negative Bedside Urine Nitrite - Negative Bedside Urine Leukocytes - Negative Esterase MDM Narrative Medical decision making narrative: Bed available at [facility] [place]. Patient has done intake. However he will not be able to go into 7:15 or 7:30. The patient is medically cleared for detox Discharge Plan Departure Patient Disposition: Released, Other Clinical Impression: Alcoholic intoxication Qualifiers: Complication of substance-induced condition: uncomplicated Qualified Code(s): F10.920 - Alcohol use, unspecified with intoxication, uncomplicated Discharge Date/Time: 04/05/19 07:31 Interventions: ED Discharge Assessment Last Done: 04/05/19 07:30 Instructions: DI for Alcohol Abuse Activity Restrictions/Additional Instructions: Go directly to [facility] for detox Take Ativan as prescribed Prescriptions: New lorazepam [Ativan] 1 mg tablet 1 mg PO QD-BID Qty: 10 RF: 0 No Action lorazepam [Ativan] 1 mg tablet See Rx Instructions .ROUTE .COMPLEX Qty: 10 RF: 0 levofloxacin 750 mg tablet 750 mg PO DAILY Qty: 7 RF: 0 ondansetron 4 mg tablet,disintegrating 4 mg PO TID-QID PRN (Reason: nausea and vomiting) Qty: 20 RF: 0 naproxen 500 mg tablet 500 mg PO BID PRN (Reason: pain) Qty: 20 RF: 0
--- NOTE | 2019-04-05 00:48 | ED_ITS ---
HPI - Alcohol General Chief Complaint: Toxicology Problem Stated Complaint: ALTERED MENTAL STATUS, LETHARGIC Time Seen by Provider: 04/05/19 00:34 Source: patient Mode of arrival: ambulatory Limitations: no limitations History of Present Illness HPI narrative: Patient is a 21-year-old male stating that he is in alcohol withdrawal. He drinks a 5th vodka daily he drank a 5th 2 hours ago. States he shaky although he is not shaky not tachycardic. He states that he wants help. He has actually seen and evaluated here just a few days ago diagnosed with UTI. Related Data Previous Rx's Medication Instructions Recorded lorazepam [Ativan] See Rx Instructions .ROUTE 02/11/19 .COMPLEX #10 tab levofloxacin 750 mg PO DAILY #7 tab 04/02/19 naproxen 500 mg PO BID PRN #20 tab 04/02/19 ondansetron 4 mg PO TID-QID PRN #20 tab 04/02/19 lorazepam [Ativan] 1 mg PO QD-BID #10 tab 04/05/19 Allergies Allergy/AdvReac Type Severity Reaction Status Date / Time tramadol Allergy Rash Verified 04/04/19 21:27 Review of Systems Review of Systems ROS Unobtainable: All systems reviewed & are unremarkable except as noted in HPI and below Constitutional Denies chills, Denies fever(s), Denies lethargy and Denies weakness Eyes Denies change in vision, Denies eye discharge, Denies irritation and Denies loss of vision ENT Ears, Nose, Mouth, and Throat: Denies change in voice, Denies neck pain and Denies sore throat Cardiovascular Denies chest pain, Denies irregular heart rhythm, Denies lightheadedness, Denies palpitations, Denies dyspnea, Denies dyspnea on exertion and Denies orthopnea Respiratory Denies cough, Denies dyspnea, Denies dyspnea on exertion and Denies wheezing Gastrointestinal Gastrointestinal: Denies abdominal pain, Denies change in bowel habits, Denies diarrhea, Denies nausea and Denies vomiting Musculoskeletal Denies neck pain Integumentary/Breasts Denies pruritus, Denies erythema, Denies rash and Denies wounds Neurologic Denies loss of vision and Denies weakness Psychiatric Reports as per HPI Endocrine Denies palpitations Allergic/Immunologic Denies wheezing [facility] Medical History Alcohol abuse (Acute) Kidney stones (Acute) Surgical History No pertinent past surgical history (Acute) Social History Smoking Status: Never smoker alcohol intake: current substance use type: other Social History Smoking Status: Never smoker alcohol intake: current substance use type: other Exam Initial Vital Signs Initial Vital Signs: Vital Signs Temperature 98.0 F 04/04/19 21:27 Pulse Rate 97 H 04/04/19 21:27 Respiratory Rate 18 04/04/19 21:27 Blood Pressure 155/101 H 04/04/19 21:27 Pulse Oximetry 97 04/04/19 21:27 GENERAL: Alert quiet flat affect HEENT: Head atraumatic,EOMI, pupils reactive CARDIOVASCULAR: Regular rate and rhythm without murmurs, rubs or gallops. RESPIRATORY: Breath sounds equal bilaterally, no wheezes rales or rhonchi. ABDOMEN: Soft, nontender. Normoactive bowel sounds all 4 quadrants. No guarding or rebound. EXTREMITIES: Normal range of motion, no clubbing or edema. Neurovascularly intact NEUROLOGICAL: Alert and oriented. speech normal no aphasia or dysarthria, no asterixis SKIN: Warm, dry, no laceration, no petechiae, no rashes or lesions. Course Orders Ordered: Discontinued Medications Lorazepam (Ativan) 1 mg IV NOW ONE Stop: 04/05/19 03:31 Last Admin: 04/05/19 03:35 Dose: 1 mg Lorazepam (Ativan) 1 mg IV NOW ONE Stop: 04/05/19 04:28 Last Admin: 04/05/19 04:31 Dose: 1 mg Vital Signs - 8 hr 04/05/19 01:40 04/05/19 02:10 04/05/19 02:20 Pulse Rate 96 H 89 86 Respiratory Rate 18 19 16 Blood Pressure [Right Arm] 126/62 115/68 92/38 L Pulse Oximetry 96 96 95 04/05/19 02:50 04/05/19 03:56 04/05/19 04:36 Pulse Rate 88 92 H 97 H Respiratory Rate 17 17 16 Blood Pressure [Right Arm] 115/90 137/73 132/63 Pulse Oximetry 95 96 96 04/05/19 05:00 04/05/19 05:30 04/05/19 06:00 Pulse Rate 85 96 H 93 H Respiratory Rate 16 18 19 Blood Pressure [Right Arm] 115/83 124/63 126/53 L Pulse Oximetry 96 96 95 MDM - Alcohol Lab Data Attestation: I reviewed the patient's lab results. Result diagrams: 04/05/19 00:53 04/05/19 00:53 Labs: Lab Results 04/05/19 04/05/19 04/05/19 Range/Units 00:53 00:53 03:49 WBC 9.3 (4.5-11.0) X10^3/uL RBC 5.75 (4.5-5.9) X10^6/uL Hgb 16.7 (13.5-17.5) g/dL Hct 50.3 (41-53) % MCV 87.5 (80-100) fL MCH 29.1 (26-34) PG MCHC 33.2 (30-36) % RDW 14.3 (11.6-14.8) % Plt Count 328 (150-400) X10^3/uL Neut % (Auto) 58.8 (50-75) % Lymph % (Auto) 35.3 (25-40) % [place] % (Auto) 4.5 (3-14) % Eos % (Auto) 0.6 L (2-4) % Baso % (Auto) 0.8 (0-2) % Neut # (Auto) 5500 (7437-9321) /uL Lymph # (Auto) 3300 (4090-3712) /uL [place] # (Auto) 400 (0-900) /uL Eos # (Auto) 100 (0-450) /uL Baso # (Auto) 100 (0-100) /uL Sodium 146 H (137-145) mmol/L Potassium 4.0 (3.4-5.1) mmol/L Chloride 106 (98-107) mmol/L Carbon Dioxide 25 (22-32) mmol/L BUN 14 (9-20) mg/dL Creatinine 0.70 (0.66-1.25) mg/dL Estimated GFR > 60.0 (>60) mL/min BUN/Creatinine Ratio 20.0 (6-22) Glucose 101 H (70-100) mg/dL Calcium 8.4 (8.4-10.2) mg/dL Magnesium 1.9 (1.6-2.3) mg/dL Total Bilirubin 0.9 (0.2-1.3) mg/dL AST 30 (17-59) IU/L ALT 30 (21-72) IU/L Alkaline Phosphatase 72 (38-126) U/L Total Protein 8.0 (6.3-8.2) g/dL Albumin 4.7 (3.5-5.0) g/dL Globulin 3.3 (1.7-4.1) g/dL Albumin/Globulin Ratio 1.4 (1.0-2.8) Lipase 37 (23-300) U/L Urine RBC (0-5/HPF) Urine WBC (0-5/HPF) Ur Squamous Epith Cells (0-5/HPF) Urine Bacteria (None) Urine Mucus (Negative) Ur Culture Indicated? Urine Opiates Screen Negative (Negative) Ur Oxycodone Screen Negative (Negative) Urine Methadone Screen Negative (Negative) Ur Barbiturates Screen Negative (Negative) U Tricyclic Antidepress Negative (Negative) Ur Phencyclidine Scrn Negative (Negative) Ur Amphetamines Screen Negative (Negative) U Methamphetamines Scrn Negative (Negative) Ur MDMA Scrn (Ecstasy) Negative (Negative) U Benzodiazepines Scrn Negative (Negative) Urine Cocaine Screen Negative (Negative) U Marijuana (THC) Screen Negative (Negative) Ethyl Alcohol 284 mg/dL 04/05/19 Range/Units 03:49 WBC (4.5-11.0) X10^3/uL RBC (4.5-5.9) X10^6/uL Hgb (13.5-17.5) g/dL Hct (41-53) % MCV (80-100) fL MCH (26-34) PG MCHC (30-36) % RDW (11.6-14.8) % Plt Count (150-400) X10^3/uL Neut % (Auto) (50-75) % Lymph % (Auto) (25-40) % [place] % (Auto) (3-14) % Eos % (Auto) (2-4) % Baso % (Auto) (0-2) % Neut # (Auto) (6844-6251) /uL Lymph # (Auto) (3280-8828) /uL [place] # (Auto) (0-900) /uL Eos # (Auto) (0-450) /uL Baso # (Auto) (0-100) /uL Sodium (137-145) mmol/L Potassium (3.4-5.1) mmol/L Chloride (98-107) mmol/L Carbon Dioxide (22-32) mmol/L BUN (9-20) mg/dL Creatinine (0.66-1.25) mg/dL Estimated GFR (>60) mL/min BUN/Creatinine Ratio (6-22) Glucose (70-100) mg/dL Calcium (8.4-10.2) mg/dL Magnesium (1.6-2.3) mg/dL Total Bilirubin (0.2-1.3) mg/dL AST (17-59) IU/L ALT (21-72) IU/L Alkaline Phosphatase (38-126) U/L Total Protein (6.3-8.2) g/dL Albumin (3.5-5.0) g/dL Globulin (1.7-4.1) g/dL Albumin/Globulin Ratio (1.0-2.8) Lipase (23-300) U/L Urine RBC 10-30/hpf H (0-5/HPF) Urine WBC None seen (0-5/HPF) Ur Squamous Epith Cells 1-5 /hpf (0-5/HPF) Urine Bacteria None seen (None) Urine Mucus 2+ H (Negative) Ur Culture Indicated? Cult not indicated Urine Opiates Screen (Negative) Ur Oxycodone Screen (Negative) Urine Methadone Screen (Negative) Ur Barbiturates Screen (Negative) U Tricyclic Antidepress (Negative) Ur Phencyclidine Scrn (Negative) Ur Amphetamines Screen (Negative) U Methamphetamines Scrn (Negative) Ur MDMA Scrn (Ecstasy) (Negative) U Benzodiazepines Scrn (Negative) Urine Cocaine Screen (Negative) U Marijuana (THC) Screen (Negative) Ethyl Alcohol mg/dL Urine Dip Bedside Urine Glucose Negative Bedside Urine Bilirubin - Negative Bedside Urine Ketone - Negative Urine Specific [place] 1.030 Bedside Urine Occult Blood +++ Bedside Urine pH 5.5 Bedside Urine Protein + 30 Bedside Urine Urobilinogen - Negative Bedside Urine Nitrite - Negative Bedside Urine Leukocytes - Negative Esterase MDM Narrative Medical decision making narrative: Bed available at [facility]. Patient has done intake. However he will not be able to go into 7:15 or 7:30. The patient is medically cleared for detox Discharge Plan Departure Patient Disposition: Released, Other Clinical Impression: Alcoholic intoxication Qualifiers: Complication of substance-induced condition: uncomplicated Qualified Code(s): F10.920 - Alcohol use, unspecified with intoxication, uncomplicated Discharge Date/Time: 04/05/19 07:31 Interventions: ED Discharge Assessment Last Done: 04/05/19 07:30 Instructions: DI for Alcohol Abuse Activity Restrictions/Additional Instructions: Go directly [facility] for detox Take Ativan as prescribed Prescriptions: New lorazepam [Ativan] 1 mg tablet 1 mg PO QD-BID Qty: 10 RF: 0 No Action lorazepam [Ativan] 1 mg tablet See Rx Instructions .ROUTE .COMPLEX Qty: 10 RF: 0 levofloxacin 750 mg tablet 750 mg PO DAILY Qty: 7 RF: 0 ondansetron 4 mg tablet,disintegrating 4 mg PO TID-QID PRN (Reason: nausea and vomiting) Qty: 20 RF: 0 naproxen 500 mg tablet 500 mg PO BID PRN (Reason: pain) Qty: 20 RF: 0
[2019-04-05 01:09] LABS: Add Manual Diff / Slide Review NO; Basophils Absolute Auto 100 /uL (0-100); Basophils Percent Auto 0.8 % (0-2); Eosinophils Absolute Auto 100 /uL (0-450); Eosinophils Percent Auto 0.6 % (2-4); Hematocrit 50.3 % (41-53); Hemoglobin 16.7 g/dL (13.5-17.5); Lymphocytes Absolute Auto 3300 /uL (1100-4500); Lymphocytes Percent Auto 35.3 % (25-40); Mean Corpuscular HGB Conc 33.2 % (30-36); Mean Corpuscular Hemoglobin 29.1 PG (26-34); Mean Corpuscular Volume 87.5 fL (80-100); Monocytes Absolute Auto 400 /uL (0-900); Monocytes Percent Auto 4.5 % (3-14); Neutrophils Absolute Auto 5500 /uL (1500-7000); Neutrophils Percent Auto 58.8 % (50-75); Platelet Count 328 X10^3/uL (150-400); Red Blood Cell Count 5.75 X10^6/uL (4.5-5.9); Red Cell Distribution Width 14.3 % (11.6-14.8); White Blood Cell Count 9.3 X10^3/uL (4.5-11.0)
[2019-04-05 01:14] LABS: Alanine Aminotransferase 30 IU/L (21-72); Albumin 4.7 g/dL (3.5-5.0); Albumin Globulin Ratio 1.4 (1.0-2.8); Alkaline Phosphatase 72 U/L (38-126); Aspartate Aminotransferase 30 IU/L (17-59); Bilirubin Total 0.9 mg/dL (0.2-1.3); Blood Urea Nitrogen 14 mg/dL (9-20); Calcium 8.4 mg/dL (8.4-10.2); Carbon Dioxide 25 mmol/L (22-32); Chloride 106 mmol/L (98-107); Estimated Glomerular Filt Rate > 60.0 mL/min (>60); Ethanol (ETOH) 284 mg/dL; Globulin 3.3 g/dL (1.7-4.1); Glucose 101 mg/dL (70-100); HEMOLYSIS 22 (0-50); Lipase 37 U/L (23-300); Magnesium 1.9 mg/dL (1.6-2.3); Sodium 146 mmol/L (137-145)
[2019-04-05] MEDS: LORazepam 2 MG/ML SYRINGE 1 MG IV ×2 (03:35→04:31)
[2019-04-05 03:59] LABS: Bacteria Urine None Seen; WBC Urine None Seen (0-5/HPF)
[2019-04-05 04:03] LABS: Urine Amphetamines Negative (Negative); Urine Barbiturates Negative (Negative); Urine Benzodiazepines Negative (Negative); Urine Cocaine Negative (Negative); Urine MDMA Negative (Negative); Urine Methadone Negative (Negative); Urine Methamphetamines Negative (Negative); Urine Morphine/Opi cutoff 2000 Negative (Negative); Urine Oxycodone Negative (Negative); Urine Phencyclidine Negative (Negative); Urine Tetrahydrocannabinol Negative (Negative); Urine Tricyclic Antidepressant Negative (Negative)
[2019-04-05 04:16] LABS: Culture Indicated Urine Cult Not Indicated; Mucus Urine 2+ (Negative); RBC Urine 10-30/HPF (0-5/HPF); Squamous Epithelial Cell Urine 1-5 /HPF (0-5/HPF)
== END 2019-04-05 07:31 | disposition home or self-care (01) ==
PROVIDERS: Emergency Provider Emergency Medicine
DX: F10.920 Alcohol use, unspecified with intoxication, uncomplicated (principal); R53.83 Other fatigue
CPT/HCPCS: 36591; 80053; 80305; 80320; 81003; 81015; 83690; 83735; 85025; 96374; 96376; 99284; 99285; J2060

== ENCOUNTER 2019-04-06 16:05 | Emergency (ER) | payer OTHER, MEDICAID, SELFPAY ==
[2019-04-06 16:03] VITALS: BP 136/75; PULSE 124; RESP 18; TEMP 37.4; O2SAT 95
--- NOTE | 2019-04-06 16:12 | ED.ALCOHOL ---
HPI - Alcohol <LORRI Ward-BC - Last Filed: 04/06/19 22:20> General Chief Complaint: Toxicology Problem Stated Complaint: ETOH Time Seen by Provider: 04/06/19 16:11 Source: patient and EMS Mode of arrival: EMS Limitations: no limitations History of Present Illness HPI narrative: The patient is a 29-year-old male smoker with a history of alcoholism who presents with a chief complaint of a wanting detox. He states he has had about a 5th of vodka to drink in today for he does not know how long. He states his last drink was last night and he feels shaky and his vomiting. he denies any fevers chest pain shortness of breath or abdominal pain. 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 He was seen at this facility yesterday, was discharged to [facility]. He did not get to [facility]. He states he does want detox today. He denies any other drug use. Related Data Home Medications Medication Instructions Recorded Confirmed buspirone 10 mg PO BID 04/06/19 04/06/19 clonazepam 1 mg PO DAILY 04/06/19 04/06/19 ibuprofen 800 mg PO Q8H PRN 04/06/19 04/06/19 Previous Rx's Medication Instructions Recorded levofloxacin 750 mg PO DAILY #7 tab 04/02/19 naproxen 500 mg PO BID PRN #20 tab 04/02/19 ondansetron 4 mg PO TID-QID PRN #20 tab 04/02/19 lorazepam [Ativan] 1 mg PO QD-BID #10 tab 04/05/19 Allergies Allergy/AdvReac Type Severity Reaction Status Date / Time tramadol Allergy Rash Verified 04/06/19 16:14 Review of Systems <LORRI Ward-BC - Last Filed: 04/06/19 22:20> Review of Systems GENERAL: Denies chills, fatigue, malaise, fever, sweats. HEENT: Denies sinus pain, ear pain, sore throat, difficulty swallowing, dizziness. RESPIRATORY: Denies dyspnea, cough, wheezing, hemoptysis, sputum. CARDIOVASCULAR: Denies chest pain, palpitations, orthopnea, edema, GASTROINTESTINAL: See HPI : Denies dysuria, frequency, incontinence, hematuria, urinary retention. MUSCULOSKELETAL: denies weakness, joint pain, or bony pain SKIN: Denies rash, skin lesions, or other NEUROLOGIC: See HPI PSYCHIATRIC: No concerning psychosocial issues. 12 point review of systems is negative except for those stated above PFSH <RONAL Ward - Last Filed: 04/06/19 22:20> Medical History Alcohol abuse (Acute) Kidney stones (Acute) Surgical History No pertinent past surgical history (Acute) Social History Smoking Status: Never smoker alcohol intake: current substance use type: other Social History Smoking Status: Never smoker alcohol intake: current substance use type: other Exam <RONAL Ward - Last Filed: 04/06/19 22:20> Narrative Exam Narrative: GENERAL: This is a well-nourished, well-developed patient, sitting on stretcher HEAD: Atraumatic. Normocephalic. No temporal or scalp tenderness. EYES: Pupils equal round and reactive. Extraocular motions intact. No scleral icterus. No injection or drainage. ENT: Nose without bleeding, purulent drainage or septal hematoma. Throat without erythema, tonsillar hypertrophy or exudate. Uvula midline. Airway patent. NECK: Trachea midline. No JVD or lymphadenopathy. Supple, nontender, no meningeal signs. CARDIOVASCULAR: Tachycardic rate and regular rhythm without murmurs, gallops, or rubs. RESPIRATORY: Clear to auscultation. Breath sounds equal bilaterally. No wheezes, rales, or rhonchi. No cough. No increased respiratory effort. GASTROINTESTINAL: Abdomen soft, non-tender, nondistended. No hepato-splenomegaly, or palpable masses. No guarding. EXTREMITIES: No clubbing, cyanosis, or edema. No joint tenderness, effusion, or edema noted. BACK: Nontender without deformity or crepitance. No flank tenderness. NEURO: AOx3. Tremor noted. SKIN: No rash or erythema. Initial Vital Signs Initial Vital Signs: Vital Signs Temperature 99.3 F 04/06/19 16:03 Pulse Rate 124 H 04/06/19 16:03 Respiratory Rate 18 04/06/19 16:03 Blood Pressure 136/75 04/06/19 16:03 Pulse Oximetry 95 04/06/19 16:03 <Yin Cano DO - Last Filed: 04/07/19 05:02> Initial Vital Signs Initial Vital Signs: Vital Signs Temperature 99.3 F 04/06/19 16:03 Pulse Rate 124 H 04/06/19 16:03 Respiratory Rate 18 04/06/19 16:03 Blood Pressure 136/75 04/06/19 16:03 Pulse Oximetry 95 04/06/19 16:03 Course <LORRI Ward-BC - Last Filed: 04/06/19 22:20> Orders Ordered: Discontinued Medications Sodium Chloride (Normal Saline 0.9%) 1,000 mls @ 1,000 mls/hr IV BOLUS ONE Stop: 04/06/19 17:11 Last Infusion: 04/06/19 18:06 Dose: 0 mls/hr Admin: 04/06/19 16:46 Dose: 1,000 mls/hr Sodium Chloride (Normal Saline 0.9%) 1,000 mls @ 1,000 mls/hr IV BOLUS ONE Stop: 04/06/19 19:07 Last Infusion: 04/06/19 19:15 Dose: 1,000 mls/hr Admin: 04/06/19 18:10 Dose: 1,000 mls/hr Lorazepam (Ativan) 2 mg PO NOW ONE Stop: 04/06/19 16:13 Last Admin: 04/06/19 16:45 Dose: 2 mg Ondansetron HCl (Zofran) 4 mg IV NOW ONE Stop: 04/06/19 16:13 Last Admin: 04/06/19 16:45 Dose: 4 mg Vital Signs - 8 hr 04/06/19 16:03 04/06/19 17:00 04/06/19 17:49 Temperature 99.3 F Pulse Rate 124 H 115 H 116 H Respiratory Rate 18 Blood Pressure 136/75 Blood Pressure [Left Arm] 156/50 H 131/72 Pulse Oximetry 95 04/06/19 18:42 04/06/19 19:24 Temperature Pulse Rate 121 H 98 H Respiratory Rate 16 Blood Pressure 142/73 H Blood Pressure [Left Arm] Pulse Oximetry 96 <Yin Cano DO - Last Filed: 04/07/19 05:02> Orders Ordered: Discontinued Medications Sodium Chloride (Normal Saline 0.9%) 1,000 mls @ 1,000 mls/hr IV BOLUS ONE Stop: 04/06/19 17:11 Last Infusion: 04/06/19 18:06 Dose: 0 mls/hr Admin: 04/06/19 16:46 Dose: 1,000 mls/hr Sodium Chloride (Normal Saline 0.9%) 1,000 mls @ 1,000 mls/hr IV BOLUS ONE Stop: 04/06/19 19:07 Last Infusion: 04/06/19 19:15 Dose: 1,000 mls/hr Admin: 04/06/19 18:10 Dose: 1,000 mls/hr Lorazepam (Ativan) 2 mg PO NOW ONE Stop: 04/06/19 16:13 Last Admin: 04/06/19 16:45 Dose: 2 mg Ondansetron HCl (Zofran) 4 mg IV NOW ONE Stop: 04/06/19 16:13 Last Admin: 04/06/19 16:45 Dose: 4 mg Vital Signs - 8 hr 04/06/19 16:03 04/06/19 17:00 04/06/19 17:49 Temperature 99.3 F Pulse Rate 124 H 115 H 116 H Respiratory Rate 18 Blood Pressure 136/75 Blood Pressure [Left Arm] 156/50 H 131/72 Pulse Oximetry 95 04/06/19 18:42 04/06/19 19:24 Temperature Pulse Rate 121 H 98 H Respiratory Rate 16 Blood Pressure 142/73 H Blood Pressure [Left Arm] Pulse Oximetry 96 MDM - Alcohol <RONAL Ward - Last Filed: 04/06/19 22:20> Lab Data Result diagrams: 04/06/19 16:30 04/06/19 16:30 Labs: Lab Results 04/06/19 04/06/19 04/06/19 Range/Units 16:30 16:30 16:30 WBC 10.3 (4.5-11.0) X10^3/uL RBC 5.90 (4.5-5.9) X10^6/uL Hgb 17.0 (13.5-17.5) g/dL Hct 51.5 (41-53) % MCV 87.4 (80-100) fL MCH 28.8 (26-34) PG MCHC 33.0 (30-36) % RDW 14.4 (11.6-14.8) % Plt Count 389 (150-400) X10^3/uL Neut % (Auto) 73.9 (50-75) % Lymph % (Auto) 21.1 L (25-40) % [place] % (Auto) 4.6 (3-14) % Eos % (Auto) 0.2 L (2-4) % Baso % (Auto) 0.2 (0-2) % Neut # (Auto) 7600 H (0826-9101) /uL Lymph # (Auto) 2200 (6049-7167) /uL [place] # (Auto) 500 (0-900) /uL Eos # (Auto) 0 (0-450) /uL Baso # (Auto) 0 (0-100) /uL Sodium 142 (137-145) mmol/L Potassium 3.9 (3.4-5.1) mmol/L Chloride 100 (98-107) mmol/L Carbon Dioxide 18 L (22-32) mmol/L BUN 16 (9-20) mg/dL Creatinine 0.80 (0.66-1.25) mg/dL Estimated GFR > 60.0 (>60) mL/min BUN/Creatinine Ratio 20.0 (6-22) Glucose 85 (70-100) mg/dL Calcium 8.8 (8.4-10.2) mg/dL Total Bilirubin 1.9 H (0.2-1.3) mg/dL AST 42 (17-59) IU/L ALT 41 (21-72) IU/L Alkaline Phosphatase 98 (38-126) U/L Total Protein 8.6 H (6.3-8.2) g/dL Albumin 5.1 H (3.5-5.0) g/dL Globulin 3.5 (1.7-4.1) g/dL Albumin/Globulin Ratio 1.5 (1.0-2.8) TSH 0.84 (0.47-4.68) uIU/mL Urine Color Urine Appearance Urine pH (4.5-8.0) Ur Specific [place] (1.000-1.035) Urine Protein (Negative) Urine Glucose (UA) (Negative) g/dL Urine Ketones (NEGATIVE) Urine Occult Blood (Negative) Urine Nitrate (Negative) Urine Bilirubin (NEGATIVE) Urine Urobilinogen (0.2) E.U./dL Ur Leukocyte Esterase (NEGATIVE) Urine RBC (0-5/HPF) Urine WBC (0-5/HPF) Urine Bacteria (None) Hyaline Casts (None) Granular Casts (None) Urine Mucus (Negative) Ur Culture Indicated? Urine Opiates Screen (Negative) Ur Oxycodone Screen (Negative) Urine Methadone Screen (Negative) Ur Barbiturates Screen (Negative) U Tricyclic Antidepress (Negative) Ur Phencyclidine Scrn (Negative) Ur Amphetamines Screen (Negative) U Methamphetamines Scrn (Negative) Ur MDMA Scrn (Ecstasy) (Negative) U Benzodiazepines Scrn (Negative) Urine Cocaine Screen (Negative) U Marijuana (THC) Screen (Negative) Ethyl Alcohol 234 mg/dL 04/06/19 04/06/19 Range/Units 17:40 17:40 WBC (4.5-11.0) X10^3/uL RBC (4.5-5.9) X10^6/uL Hgb (13.5-17.5) g/dL Hct (41-53) % MCV (80-100) fL MCH (26-34) PG MCHC (30-36) % RDW (11.6-14.8) % Plt Count (150-400) X10^3/uL Neut % (Auto) (50-75) % Lymph % (Auto) (25-40) % [place] % (Auto) (3-14) % Eos % (Auto) (2-4) % Baso % (Auto) (0-2) % Neut # (Auto) (3402-7942) /uL Lymph # (Auto) (1176-6672) /uL [place] # (Auto) (0-900) /uL Eos # (Auto) (0-450) /uL Baso # (Auto) (0-100) /uL Sodium (137-145) mmol/L Potassium (3.4-5.1) mmol/L Chloride (98-107) mmol/L Carbon Dioxide (22-32) mmol/L BUN (9-20) mg/dL Creatinine (0.66-1.25) mg/dL Estimated GFR (>60) mL/min BUN/Creatinine Ratio (6-22) Glucose (70-100) mg/dL Calcium (8.4-10.2) mg/dL Total Bilirubin (0.2-1.3) mg/dL AST (17-59) IU/L ALT (21-72) IU/L Alkaline Phosphatase (38-126) U/L Total Protein (6.3-8.2) g/dL Albumin (3.5-5.0) g/dL Globulin (1.7-4.1) g/dL Albumin/Globulin Ratio (1.0-2.8) TSH (0.47-4.68) uIU/mL Urine Color Yellow Urine Appearance Clear Urine pH 5.0 (4.5-8.0) Ur Specific [place] >=1.030 H (1.000-1.035) Urine Protein 2+ H (Negative) Urine Glucose (UA) Negative (Negative) g/dL Urine Ketones 2+ H (NEGATIVE) Urine Occult Blood Trace-lysed (Negative) Urine Nitrate Negative (Negative) Urine Bilirubin Negative (NEGATIVE) Urine Urobilinogen 0.2 (0.2) E.U./dL Ur Leukocyte Esterase Negative (NEGATIVE) Urine RBC None seen (0-5/HPF) Urine WBC 0-1/hpf (0-5/HPF) Urine Bacteria None seen (None) Hyaline Casts 1-5/lpf (None) Granular Casts 0-1/lpf (None) Urine Mucus 1+ H (Negative) Ur Culture Indicated? Cult not indicated Urine Opiates Screen Negative (Negative) Ur Oxycodone Screen Negative (Negative) Urine Methadone Screen Negative (Negative) Ur Barbiturates Screen Negative (Negative) U Tricyclic Antidepress Negative (Negative) Ur Phencyclidine Scrn Negative (Negative) Ur Amphetamines Screen Negative (Negative) U Methamphetamines Scrn Negative (Negative) Ur MDMA Scrn (Ecstasy) Negative (Negative) U Benzodiazepines Scrn Negative (Negative) Urine Cocaine Screen Negative (Negative) U Marijuana (THC) Screen Negative (Negative) Ethyl Alcohol mg/dL MDM Narrative Medical decision making narrative: The patient is a 29-year-old male who presents requesting detox. Given his tremors and symptoms initially I gave him Ativan. He was GCS 15, alert and oriented speaking clearly and steady gait. The patient decided he later did not want to go to detox facility. He was discharged alert and oriented. He requested to go home. I discussed that he could from alcoholism or withdrawal. He was okay with accepting this risk. Stated he wanted to leave before his heart rate came down, I did state that this could be risky as it is an indicator withdrawal. He stated he was okay leaving despite that and was willing to accept risk . Patient has no questions or concerns upon discharge. <Yin Cano, DO - Last Filed: 04/07/19 05:02> Lab Data Labs: Lab Results 04/06/19 04/06/19 04/06/19 Range/Units 16:30 16:30 16:30 WBC 10.3 (4.5-11.0) X10^3/uL RBC 5.90 (4.5-5.9) X10^6/uL Hgb 17.0 (13.5-17.5) g/dL Hct 51.5 (41-53) % MCV 87.4 (80-100) fL MCH 28.8 (26-34) PG MCHC 33.0 (30-36) % RDW 14.4 (11.6-14.8) % Plt Count 389 (150-400) X10^3/uL Neut % (Auto) 73.9 (50-75) % Lymph % (Auto) 21.1 L (25-40) % [place] % (Auto) 4.6 (3-14) % Eos % (Auto) 0.2 L (2-4) % Baso % (Auto) 0.2 (0-2) % Neut # (Auto) 7600 H (1720-6549) /uL Lymph # (Auto) 2200 (2609-7466) /uL [place] # (Auto) 500 (0-900) /uL Eos # (Auto) 0 (0-450) /uL Baso # (Auto) 0 (0-100) /uL Sodium 142 (137-145) mmol/L Potassium 3.9 (3.4-5.1) mmol/L Chloride 100 (98-107) mmol/L Carbon Dioxide 18 L (22-32) mmol/L BUN 16 (9-20) mg/dL Creatinine 0.80 (0.66-1.25) mg/dL Estimated GFR > 60.0 (>60) mL/min BUN/Creatinine Ratio 20.0 (6-22) Glucose 85 (70-100) mg/dL Calcium 8.8 (8.4-10.2) mg/dL Total Bilirubin 1.9 H (0.2-1.3) mg/dL AST 42 (17-59) IU/L ALT 41 (21-72) IU/L Alkaline Phosphatase 98 (38-126) U/L Total Protein 8.6 H (6.3-8.2) g/dL Albumin 5.1 H (3.5-5.0) g/dL Globulin 3.5 (1.7-4.1) g/dL Albumin/Globulin Ratio 1.5 (1.0-2.8) TSH 0.84 (0.47-4.68) uIU/mL Urine Color Urine Appearance Urine pH (4.5-8.0) Ur Specific [place] (1.000-1.035) Urine Protein (Negative) Urine Glucose (UA) (Negative) g/dL Urine Ketones (NEGATIVE) Urine Occult Blood (Negative) Urine Nitrate (Negative) Urine Bilirubin (NEGATIVE) Urine Urobilinogen (0.2) E.U./dL Ur Leukocyte Esterase (NEGATIVE) Urine RBC (0-5/HPF) Urine WBC (0-5/HPF) Urine Bacteria (None) Hyaline Casts (None) Granular Casts (None) Urine Mucus (Negative) Ur Culture Indicated? Urine Opiates Screen (Negative) Ur Oxycodone Screen (Negative) Urine Methadone Screen (Negative) Ur Barbiturates Screen (Negative) U Tricyclic Antidepress (Negative) Ur Phencyclidine Scrn (Negative) Ur Amphetamines Screen (Negative) U Methamphetamines Scrn (Negative) Ur MDMA Scrn (Ecstasy) (Negative) U Benzodiazepines Scrn (Negative) Urine Cocaine Screen (Negative) U Marijuana (THC) Screen (Negative) Ethyl Alcohol 234 mg/dL 04/06/19 04/06/19 Range/Units 17:40 17:40 WBC (4.5-11.0) X10^3/uL RBC (4.5-5.9) X10^6/uL Hgb (13.5-17.5) g/dL Hct (41-53) % MCV (80-100) fL MCH (26-34) PG MCHC (30-36) % RDW (11.6-14.8) % Plt Count (150-400) X10^3/uL Neut % (Auto) (50-75) % Lymph % (Auto) (25-40) % [place] % (Auto) (3-14) % Eos % (Auto) (2-4) % Baso % (Auto) (0-2) % Neut # (Auto) (1920-2845) /uL Lymph # (Auto) (2352-7044) /uL [place] # (Auto) (0-900) /uL Eos # (Auto) (0-450) /uL Baso # (Auto) (0-100) /uL Sodium (137-145) mmol/L Potassium (3.4-5.1) mmol/L Chloride (98-107) mmol/L Carbon Dioxide (22-32) mmol/L BUN (9-20) mg/dL Creatinine (0.66-1.25) mg/dL Estimated GFR (>60) mL/min BUN/Creatinine Ratio (6-22) Glucose (70-100) mg/dL Calcium (8.4-10.2) mg/dL Total Bilirubin (0.2-1.3) mg/dL AST (17-59) IU/L ALT (21-72) IU/L Alkaline Phosphatase (38-126) U/L Total Protein (6.3-8.2) g/dL Albumin (3.5-5.0) g/dL Globulin (1.7-4.1) g/dL Albumin/Globulin Ratio (1.0-2.8) TSH (0.47-4.68) uIU/mL Urine Color Yellow Urine Appearance Clear Urine pH 5.0 (4.5-8.0) Ur Specific [place] >=1.030 H (1.000-1.035) Urine Protein 2+ H (Negative) Urine Glucose (UA) Negative (Negative) g/dL Urine Ketones 2+ H (NEGATIVE) Urine Occult Blood Trace-lysed (Negative) Urine Nitrate Negative (Negative) Urine Bilirubin Negative (NEGATIVE) Urine Urobilinogen 0.2 (0.2) E.U./dL Ur Leukocyte Esterase Negative (NEGATIVE) Urine RBC None seen (0-5/HPF) Urine WBC 0-1/hpf (0-5/HPF) Urine Bacteria None seen (None) Hyaline Casts 1-5/lpf (None) Granular Casts 0-1/lpf (None) Urine Mucus 1+ H (Negative) Ur Culture Indicated? Cult not indicated Urine Opiates Screen Negative (Negative) Ur Oxycodone Screen Negative (Negative) Urine Methadone Screen Negative (Negative) Ur Barbiturates Screen Negative (Negative) U Tricyclic Antidepress Negative (Negative) Ur Phencyclidine Scrn Negative (Negative) Ur Amphetamines Screen Negative (Negative) U Methamphetamines Scrn Negative (Negative) Ur MDMA Scrn (Ecstasy) Negative (Negative) U Benzodiazepines Scrn Negative (Negative) Urine Cocaine Screen Negative (Negative) U Marijuana (THC) Screen Negative (Negative) Ethyl Alcohol mg/dL Discharge Plan Departure Patient Disposition: Home Clinical Impression: Alcoholic intoxication Qualifiers: Complication of substance-induced condition: uncomplicated Qualified Code(s): F10.920 - Alcohol use, unspecified with intoxication, uncomplicated Discharge Date/Time: 04/06/19 19:25 Interventions: ED Discharge Assessment Last Done: 04/06/19 19:24 Instructions: DI for Alcohol Abuse, DI for Alcohol Poisoning Activity Restrictions/Additional Instructions: Please follow up with your primary care provider. Please come back to the emergency department for any acute concerns. Prescriptions: No Action levofloxacin 750 mg tablet 750 mg PO DAILY Qty: 7 RF: 0 ondansetron 4 mg tablet,disintegrating 4 mg PO TID-QID PRN (Reason: nausea and vomiting) Qty: 20 RF: 0 naproxen 500 mg tablet 500 mg PO BID PRN (Reason: pain) Qty: 20 RF: 0 lorazepam [Ativan] 1 mg tablet 1 mg PO QD-BID Qty: 10 RF: 0 ibuprofen 800 mg tablet 800 mg PO Q8H PRN (Reason: pain) RF: 0 clonazepam 1 mg tablet 1 mg PO DAILY RF: 0 buspirone 10 mg tablet 10 mg PO BID RF: 0 <Yin Cano DO - Last Filed: 04/07/19 05:02> Cosign ED Attending Luis Attestation: I was immediately available in the department for consultation. Documentation has been reviewed. I agree with assessment and plan.
[2019-04-06] MEDS: LORazepam 0.5 MG TABLET 2 MG PO (16:45)
[2019-04-06] MEDS: ONDANSETRON 4 MG/2 ML INJ IV (16:45)
[2019-04-06] MEDS: SODIUM CHLORIDE 0.9% 1,000 ML 1000 ML IV ×2 (16:46→18:10)
[2019-04-06 16:49] LABS: Add Manual Diff / Slide Review NO; Basophils Absolute Auto 0 /uL (0-100); Basophils Percent Auto 0.2 % (0-2); Eosinophils Absolute Auto 0 /uL (0-450); Eosinophils Percent Auto 0.2 % (2-4); Hematocrit 51.5 % (41-53); Lymphocytes Absolute Auto 2200 /uL (1100-4500); Lymphocytes Percent Auto 21.1 % (25-40); Mean Corpuscular Hemoglobin 28.8 PG (26-34); Mean Corpuscular Volume 87.4 fL (80-100); Monocytes Absolute Auto 500 /uL (0-900); Monocytes Percent Auto 4.6 % (3-14); Neutrophils Absolute Auto 7600 /uL (1500-7000); Neutrophils Percent Auto 73.9 % (50-75); Platelet Count 389 X10^3/uL (150-400); Red Cell Distribution Width 14.4 % (11.6-14.8); White Blood Cell Count 10.3 X10^3/uL (4.5-11.0)
[2019-04-06 17:00] VITALS: BP 156/50; PULSE 115
[2019-04-06 17:03] LABS: Alanine Aminotransferase 41 IU/L (21-72); Albumin 5.1 g/dL (3.5-5.0); Albumin Globulin Ratio 1.5 (1.0-2.8); Alkaline Phosphatase 98 U/L (38-126); Aspartate Aminotransferase 42 IU/L (17-59); Bilirubin Total 1.9 mg/dL (0.2-1.3); Blood Urea Nitrogen 16 mg/dL (9-20); Calcium 8.8 mg/dL (8.4-10.2); Carbon Dioxide 18 mmol/L (22-32); Chloride 100 mmol/L (98-107); Estimated Glomerular Filt Rate > 60.0 mL/min (>60); Ethanol (ETOH) 234 mg/dL; Globulin 3.5 g/dL (1.7-4.1); Glucose 85 mg/dL (70-100); HEMOLYSIS < 15 (0-50); Potassium 3.9 mmol/L (3.4-5.1); Sodium 142 mmol/L (137-145); Total Protein 8.6 g/dL (6.3-8.2)
[2019-04-06 17:36] LABS: Thyroid Stimulating Hormone 0.84 uIU/mL (0.47-4.68)
[2019-04-06 17:49] VITALS: BP 131/72; PULSE 116
[2019-04-06 18:04] LABS: Bacteria Urine None Seen; RBC Urine None Seen (0-5/HPF)
--- NOTE | 2019-04-06 18:06 | PC.NURSE ---
hr need to be less than 100, waiting for all the lab result.
[2019-04-06 18:07] LABS: Appearance Urine UA CLEAR; Bilirubin Urine UA NEGATIVE (NEGATIVE); Color Urine UA YELLOW; Glucose Urine UA NEGATIVE (Negative); Ketones Urine UA 2+ (NEGATIVE); Leukocyte Esterase Urine UA NEGATIVE (NEGATIVE); Nitrite Urine UA NEGATIVE (Negative); Occult Blood Urine UA TRACE-LYSED (Negative); Protein Urine UA 2+ (Negative); Specific Gravity Urine UA >=1.030 (1.000-1.035); Urobilinogen Urine UA 0.2 E.U./dL (0.2)
[2019-04-06 18:13] LABS: Urine Amphetamines Negative (Negative); Urine Barbiturates Negative (Negative); Urine Benzodiazepines Negative (Negative); Urine Cocaine Negative (Negative); Urine MDMA Negative (Negative); Urine Methadone Negative (Negative); Urine Methamphetamines Negative (Negative); Urine Morphine/Opi cutoff 2000 Negative (Negative); Urine Oxycodone Negative (Negative); Urine Phencyclidine Negative (Negative); Urine Tetrahydrocannabinol Negative (Negative); Urine Tricyclic Antidepressant Negative (Negative)
[2019-04-06 18:40] LABS: Culture Indicated Urine Cult Not Indicated; Granular Casts Urine 0-1/LPF; Hyaline Casts Urine 1-5/LPF; Mucus Urine 1+ (Negative); WBC Urine 0-1/HPF (0-5/HPF)
[2019-04-06 18:42] VITALS: PULSE 121
[2019-04-06 19:24] VITALS: BP 142/73; PULSE 98; RESP 16; O2SAT 96
--- NOTE | 2019-04-06 21:56 | ED_ITS ---
HPI - Alcohol <LORRI Ward-BC - Last Filed: 04/06/19 22:20> General Chief Complaint: Toxicology Problem Stated Complaint: ETOH Time Seen by Provider: 04/06/19 16:11 Source: patient and EMS Mode of arrival: EMS Limitations: no limitations History of Present Illness HPI narrative: The patient is a 29-year-old male smoker with a history of alcoholism who presents with a chief complaint of a wanting detox. He states he has had about a 5th of vodka to drink in today for he does not know how long. He states his last drink was last night and he feels shaky and his vomiting. he denies any fevers chest pain shortness of breath or abdominal pain. 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 He was seen at this facility yesterday, was discharged to [facility]. He did not get to [facility]. He states he does want detox today. He denies any other drug use. Related Data Home Medications Medication Instructions Recorded Confirmed buspirone 10 mg PO BID 04/06/19 04/06/19 clonazepam 1 mg PO DAILY 04/06/19 04/06/19 ibuprofen 800 mg PO Q8H PRN 04/06/19 04/06/19 Previous Rx's Medication Instructions Recorded levofloxacin 750 mg PO DAILY #7 tab 04/02/19 naproxen 500 mg PO BID PRN #20 tab 04/02/19 ondansetron 4 mg PO TID-QID PRN #20 tab 04/02/19 lorazepam [Ativan] 1 mg PO QD-BID #10 tab 04/05/19 Allergies Allergy/AdvReac Type Severity Reaction Status Date / Time tramadol Allergy Rash Verified 04/06/19 16:14 Review of Systems <LORRI Ward-BC - Last Filed: 04/06/19 22:20> Review of Systems GENERAL: Denies chills, fatigue, malaise, fever, sweats. HEENT: Denies sinus pain, ear pain, sore throat, difficulty swallowing, dizziness. RESPIRATORY: Denies dyspnea, cough, wheezing, hemoptysis, sputum. CARDIOVASCULAR: Denies chest pain, palpitations, orthopnea, edema, GASTROINTESTINAL: See HPI : Denies dysuria, frequency, incontinence, hematuria, urinary retention. MUSCULOSKELETAL: denies weakness, joint pain, or bony pain SKIN: Denies rash, skin lesions, or other NEUROLOGIC: See HPI PSYCHIATRIC: No concerning psychosocial issues. 12 point review of systems is negative except for those stated above PFSH <RONAL Ward - Last Filed: 04/06/19 22:20> Medical History Alcohol abuse (Acute) Kidney stones (Acute) Surgical History No pertinent past surgical history (Acute) Social History Smoking Status: Never smoker alcohol intake: current substance use type: other Social History Smoking Status: Never smoker alcohol intake: current substance use type: other Exam <RONAL Ward - Last Filed: 04/06/19 22:20> Narrative Exam Narrative: GENERAL: This is a well-nourished, well-developed patient, sitting on stretcher HEAD: Atraumatic. Normocephalic. No temporal or scalp tenderness. EYES: Pupils equal round and reactive. Extraocular motions intact. No scleral icterus. No injection or drainage. ENT: Nose without bleeding, purulent drainage or septal hematoma. Throat without erythema, tonsillar hypertrophy or exudate. Uvula midline. Airway patent. NECK: Trachea midline. No JVD or lymphadenopathy. Supple, nontender, no meningeal signs. CARDIOVASCULAR: Tachycardic rate and regular rhythm without murmurs, gallops, or rubs. RESPIRATORY: Clear to auscultation. Breath sounds equal bilaterally. No wheezes, rales, or rhonchi. No cough. No increased respiratory effort. GASTROINTESTINAL: Abdomen soft, non-tender, nondistended. No hepato- splenomegaly, or palpable masses. No guarding. EXTREMITIES: No clubbing, cyanosis, or edema. No joint tenderness, effusion, or edema noted. BACK: Nontender without deformity or crepitance. No flank tenderness. NEURO: AOx3. Tremor noted. SKIN: No rash or erythema. Initial Vital Signs Initial Vital Signs: Vital Signs Temperature 99.3 F 04/06/19 16:03 Pulse Rate 124 H 04/06/19 16:03 Respiratory Rate 18 04/06/19 16:03 Blood Pressure 136/75 04/06/19 16:03 Pulse Oximetry 95 04/06/19 16:03 <Yin Cano DO - Last Filed: 04/07/19 05:02> Initial Vital Signs Initial Vital Signs: Vital Signs Temperature 99.3 F 04/06/19 16:03 Pulse Rate 124 H 04/06/19 16:03 Respiratory Rate 18 04/06/19 16:03 Blood Pressure 136/75 04/06/19 16:03 Pulse Oximetry 95 04/06/19 16:03 Course <LORRI Ward-BC - Last Filed: 04/06/19 22:20> Orders Ordered: Discontinued Medications Sodium Chloride (Normal Saline 0.9%) 1,000 mls @ 1,000 mls/hr IV BOLUS ONE Stop: 04/06/19 17:11 Last Infusion: 04/06/19 18:06 Dose: 0 mls/hr Admin: 04/06/19 16:46 Dose: 1,000 mls/hr Sodium Chloride (Normal Saline 0.9%) 1,000 mls @ 1,000 mls/hr IV BOLUS ONE Stop: 04/06/19 19:07 Last Infusion: 04/06/19 19:15 Dose: 1,000 mls/hr Admin: 04/06/19 18:10 Dose: 1,000 mls/hr Lorazepam (Ativan) 2 mg PO NOW ONE Stop: 04/06/19 16:13 Last Admin: 04/06/19 16:45 Dose: 2 mg Ondansetron HCl (Zofran) 4 mg IV NOW ONE Stop: 04/06/19 16:13 Last Admin: 04/06/19 16:45 Dose: 4 mg Vital Signs - 8 hr 04/06/19 16:03 04/06/19 17:00 04/06/19 17:49 Temperature 99.3 F Pulse Rate 124 H 115 H 116 H Respiratory Rate 18 Blood Pressure 136/75 Blood Pressure [Left Arm] 156/50 H 131/72 Pulse Oximetry 95 04/06/19 18:42 04/06/19 19:24 Temperature Pulse Rate 121 H 98 H Respiratory Rate 16 Blood Pressure 142/73 H Blood Pressure [Left Arm] Pulse Oximetry 96 <Yin Cano DO - Last Filed: 04/07/19 05:02> Orders Ordered: Discontinued Medications Sodium Chloride (Normal Saline 0.9%) 1,000 mls @ 1,000 mls/hr IV BOLUS ONE Stop: 04/06/19 17:11 Last Infusion: 04/06/19 18:06 Dose: 0 mls/hr Admin: 04/06/19 16:46 Dose: 1,000 mls/hr Sodium Chloride (Normal Saline 0.9%) 1,000 mls @ 1,000 mls/hr IV BOLUS ONE Stop: 04/06/19 19:07 Last Infusion: 04/06/19 19:15 Dose: 1,000 mls/hr Admin: 04/06/19 18:10 Dose: 1,000 mls/hr Lorazepam (Ativan) 2 mg PO NOW ONE Stop: 04/06/19 16:13 Last Admin: 04/06/19 16:45 Dose: 2 mg Ondansetron HCl (Zofran) 4 mg IV NOW ONE Stop: 04/06/19 16:13 Last Admin: 04/06/19 16:45 Dose: 4 mg Vital Signs - 8 hr 04/06/19 16:03 04/06/19 17:00 04/06/19 17:49 Temperature 99.3 F Pulse Rate 124 H 115 H 116 H Respiratory Rate 18 Blood Pressure 136/75 Blood Pressure [Left Arm] 156/50 H 131/72 Pulse Oximetry 95 04/06/19 18:42 04/06/19 19:24 Temperature Pulse Rate 121 H 98 H Respiratory Rate 16 Blood Pressure 142/73 H Blood Pressure [Left Arm] Pulse Oximetry 96 MDM - Alcohol <RONAL Ward - Last Filed: 04/06/19 22:20> Lab Data Result diagrams: 04/06/19 16:30 04/06/19 16:30 Labs: Lab Results 04/06/19 04/06/19 04/06/19 Range/Units 16:30 16:30 16:30 WBC 10.3 (4.5-11.0) X10^3/uL RBC 5.90 (4.5-5.9) X10^6/uL Hgb 17.0 (13.5-17.5) g/dL Hct 51.5 (41-53) % MCV 87.4 (80-100) fL MCH 28.8 (26-34) PG MCHC 33.0 (30-36) % RDW 14.4 (11.6-14.8) % Plt Count 389 (150-400) X10^3/uL Neut % (Auto) 73.9 (50-75) % Lymph % (Auto) 21.1 L (25-40) % [place] % (Auto) 4.6 (3-14) % Eos % (Auto) 0.2 L (2-4) % Baso % (Auto) 0.2 (0-2) % Neut # (Auto) 7600 H (6433-3424) /uL Lymph # (Auto) 2200 (2228-4166) /uL [place] # (Auto) 500 (0-900) /uL Eos # (Auto) 0 (0-450) /uL Baso # (Auto) 0 (0-100) /uL Sodium 142 (137-145) mmol/L Potassium 3.9 (3.4-5.1) mmol/L Chloride 100 (98-107) mmol/L Carbon Dioxide 18 L (22-32) mmol/L BUN 16 (9-20) mg/dL Creatinine 0.80 (0.66-1.25) mg/dL Estimated GFR > 60.0 (>60) mL/min BUN/Creatinine Ratio 20.0 (6-22) Glucose 85 (70-100) mg/dL Calcium 8.8 (8.4-10.2) mg/dL Total Bilirubin 1.9 H (0.2-1.3) mg/dL AST 42 (17-59) IU/L ALT 41 (21-72) IU/L Alkaline Phosphatase 98 (38-126) U/L Total Protein 8.6 H (6.3-8.2) g/dL Albumin 5.1 H (3.5-5.0) g/dL Globulin 3.5 (1.7-4.1) g/dL Albumin/Globulin Ratio 1.5 (1.0-2.8) TSH 0.84 (0.47-4.68) uIU/mL Urine Color Urine Appearance Urine pH (4.5-8.0) Ur Specific [place] (1.000-1.035) Urine Protein (Negative) Urine Glucose (UA) (Negative) g/dL Urine Ketones (NEGATIVE) Urine Occult Blood (Negative) Urine Nitrate (Negative) Urine Bilirubin (NEGATIVE) Urine Urobilinogen (0.2) E.U./dL Ur Leukocyte Esterase (NEGATIVE) Urine RBC (0-5/HPF) Urine WBC (0-5/HPF) Urine Bacteria (None) Hyaline Casts (None) Granular Casts (None) Urine Mucus (Negative) Ur Culture Indicated? Urine Opiates Screen (Negative) Ur Oxycodone Screen (Negative) Urine Methadone Screen (Negative) Ur Barbiturates Screen (Negative) U Tricyclic Antidepress (Negative) Ur Phencyclidine Scrn (Negative) Ur Amphetamines Screen (Negative) U Methamphetamines Scrn (Negative) Ur MDMA Scrn (Ecstasy) (Negative) U Benzodiazepines Scrn (Negative) Urine Cocaine Screen (Negative) U Marijuana (THC) Screen (Negative) Ethyl Alcohol 234 mg/dL 04/06/19 04/06/19 Range/Units 17:40 17:40 WBC (4.5-11.0) X10^3/uL RBC (4.5-5.9) X10^6/uL Hgb (13.5-17.5) g/dL Hct (41-53) % MCV (80-100) fL MCH (26-34) PG MCHC (30-36) % RDW (11.6-14.8) % Plt Count (150-400) X10^3/uL Neut % (Auto) (50-75) % Lymph % (Auto) (25-40) % [place] % (Auto) (3-14) % Eos % (Auto) (2-4) % Baso % (Auto) (0-2) % Neut # (Auto) (0020-6310) /uL Lymph # (Auto) (4677-5138) /uL [place] # (Auto) (0-900) /uL Eos # (Auto) (0-450) /uL Baso # (Auto) (0-100) /uL Sodium (137-145) mmol/L Potassium (3.4-5.1) mmol/L Chloride (98-107) mmol/L Carbon Dioxide (22-32) mmol/L BUN (9-20) mg/dL Creatinine (0.66-1.25) mg/dL Estimated GFR (>60) mL/min BUN/Creatinine Ratio (6-22) Glucose (70-100) mg/dL Calcium (8.4-10.2) mg/dL Total Bilirubin (0.2-1.3) mg/dL AST (17-59) IU/L ALT (21-72) IU/L Alkaline Phosphatase (38-126) U/L Total Protein (6.3-8.2) g/dL Albumin (3.5-5.0) g/dL Globulin (1.7-4.1) g/dL Albumin/Globulin Ratio (1.0-2.8) TSH (0.47-4.68) uIU/mL Urine Color Yellow Urine Appearance Clear Urine pH 5.0 (4.5-8.0) Ur Specific [place] >=1.030 H (1.000-1.035) Urine Protein 2+ H (Negative) Urine Glucose (UA) Negative (Negative) g/dL Urine Ketones 2+ H (NEGATIVE) Urine Occult Blood Trace-lysed (Negative) Urine Nitrate Negative (Negative) Urine Bilirubin Negative (NEGATIVE) Urine Urobilinogen 0.2 (0.2) E.U./dL Ur Leukocyte Esterase Negative (NEGATIVE) Urine RBC None seen (0-5/HPF) Urine WBC 0-1/hpf (0-5/HPF) Urine Bacteria None seen (None) Hyaline Casts 1-5/lpf (None) Granular Casts 0-1/lpf (None) Urine Mucus 1+ H (Negative) Ur Culture Indicated? Cult not indicated Urine Opiates Screen Negative (Negative) Ur Oxycodone Screen Negative (Negative) Urine Methadone Screen Negative (Negative) Ur Barbiturates Screen Negative (Negative) U Tricyclic Antidepress Negative (Negative) Ur Phencyclidine Scrn Negative (Negative) Ur Amphetamines Screen Negative (Negative) U Methamphetamines Scrn Negative (Negative) Ur MDMA Scrn (Ecstasy) Negative (Negative) U Benzodiazepines Scrn Negative (Negative) Urine Cocaine Screen Negative (Negative) U Marijuana (THC) Screen Negative (Negative) Ethyl Alcohol mg/dL MDM Narrative Medical decision making narrative: The patient is a 29-year-old male who presents requesting detox. Given his tremors and symptoms initially I gave him Ativan. He was GCS 15, alert and oriented speaking clearly and steady gait. The patient decided he later did not want to go to detox facility. He was discharged alert and oriented. He requested to go home. I discussed that he could from alcoholism or withdrawal. He was okay with accepting this risk. Stated he wanted to leave before his heart rate came down, I did state that this could be risky as it is an indicator withdrawal. He stated he was okay leaving despite that and was willing to accept risk . Patient has no questions or concerns upon discharge. <Yin Cano, DO - Last Filed: 04/07/19 05:02> Lab Data Labs: Lab Results 04/06/19 04/06/19 04/06/19 Range/Units 16:30 16:30 16:30 WBC 10.3 (4.5-11.0) X10^3/uL RBC 5.90 (4.5-5.9) X10^6/uL Hgb 17.0 (13.5-17.5) g/dL Hct 51.5 (41-53) % MCV 87.4 (80-100) fL MCH 28.8 (26-34) PG MCHC 33.0 (30-36) % RDW 14.4 (11.6-14.8) % Plt Count 389 (150-400) X10^3/uL Neut % (Auto) 73.9 (50-75) % Lymph % (Auto) 21.1 L (25-40) % [place] % (Auto) 4.6 (3-14) % Eos % (Auto) 0.2 L (2-4) % Baso % (Auto) 0.2 (0-2) % Neut # (Auto) 7600 H (2803-1227) /uL Lymph # (Auto) 2200 (3342-9679) /uL [place] # (Auto) 500 (0-900) /uL Eos # (Auto) 0 (0-450) /uL Baso # (Auto) 0 (0-100) /uL Sodium 142 (137-145) mmol/L Potassium 3.9 (3.4-5.1) mmol/L Chloride 100 (98-107) mmol/L Carbon Dioxide 18 L (22-32) mmol/L BUN 16 (9-20) mg/dL Creatinine 0.80 (0.66-1.25) mg/dL Estimated GFR > 60.0 (>60) mL/min BUN/Creatinine Ratio 20.0 (6-22) Glucose 85 (70-100) mg/dL Calcium 8.8 (8.4-10.2) mg/dL Total Bilirubin 1.9 H (0.2-1.3) mg/dL AST 42 (17-59) IU/L ALT 41 (21-72) IU/L Alkaline Phosphatase 98 (38-126) U/L Total Protein 8.6 H (6.3-8.2) g/dL Albumin 5.1 H (3.5-5.0) g/dL Globulin 3.5 (1.7-4.1) g/dL Albumin/Globulin Ratio 1.5 (1.0-2.8) TSH 0.84 (0.47-4.68) uIU/mL Urine Color Urine Appearance Urine pH (4.5-8.0) Ur Specific [place] (1.000-1.035) Urine Protein (Negative) Urine Glucose (UA) (Negative) g/dL Urine Ketones (NEGATIVE) Urine Occult Blood (Negative) Urine Nitrate (Negative) Urine Bilirubin (NEGATIVE) Urine Urobilinogen (0.2) E.U./dL Ur Leukocyte Esterase (NEGATIVE) Urine RBC (0-5/HPF) Urine WBC (0-5/HPF) Urine Bacteria (None) Hyaline Casts (None) Granular Casts (None) Urine Mucus (Negative) Ur Culture Indicated? Urine Opiates Screen (Negative) Ur Oxycodone Screen (Negative) Urine Methadone Screen (Negative) Ur Barbiturates Screen (Negative) U Tricyclic Antidepress (Negative) Ur Phencyclidine Scrn (Negative) Ur Amphetamines Screen (Negative) U Methamphetamines Scrn (Negative) Ur MDMA Scrn (Ecstasy) (Negative) U Benzodiazepines Scrn (Negative) Urine Cocaine Screen (Negative) U Marijuana (THC) Screen (Negative) Ethyl Alcohol 234 mg/dL 04/06/19 04/06/19 Range/Units 17:40 17:40 WBC (4.5-11.0) X10^3/uL RBC (4.5-5.9) X10^6/uL Hgb (13.5-17.5) g/dL Hct (41-53) % MCV (80-100) fL MCH (26-34) PG MCHC (30-36) % RDW (11.6-14.8) % Plt Count (150-400) X10^3/uL Neut % (Auto) (50-75) % Lymph % (Auto) (25-40) % [place] % (Auto) (3-14) % Eos % (Auto) (2-4) % Baso % (Auto) (0-2) % Neut # (Auto) (2601-1401) /uL Lymph # (Auto) (7988-5305) /uL [place] # (Auto) (0-900) /uL Eos # (Auto) (0-450) /uL Baso # (Auto) (0-100) /uL Sodium (137-145) mmol/L Potassium (3.4-5.1) mmol/L Chloride (98-107) mmol/L Carbon Dioxide (22-32) mmol/L BUN (9-20) mg/dL Creatinine (0.66-1.25) mg/dL Estimated GFR (>60) mL/min BUN/Creatinine Ratio (6-22) Glucose (70-100) mg/dL Calcium (8.4-10.2) mg/dL Total Bilirubin (0.2-1.3) mg/dL AST (17-59) IU/L ALT (21-72) IU/L Alkaline Phosphatase (38-126) U/L Total Protein (6.3-8.2) g/dL Albumin (3.5-5.0) g/dL Globulin (1.7-4.1) g/dL Albumin/Globulin Ratio (1.0-2.8) TSH (0.47-4.68) uIU/mL Urine Color Yellow Urine Appearance Clear Urine pH 5.0 (4.5-8.0) Ur Specific [place] >=1.030 H (1.000-1.035) Urine Protein 2+ H (Negative) Urine Glucose (UA) Negative (Negative) g/dL Urine Ketones 2+ H (NEGATIVE) Urine Occult Blood Trace-lysed (Negative) Urine Nitrate Negative (Negative) Urine Bilirubin Negative (NEGATIVE) Urine Urobilinogen 0.2 (0.2) E.U./dL Ur Leukocyte Esterase Negative (NEGATIVE) Urine RBC None seen (0-5/HPF) Urine WBC 0-1/hpf (0-5/HPF) Urine Bacteria None seen (None) Hyaline Casts 1-5/lpf (None) Granular Casts 0-1/lpf (None) Urine Mucus 1+ H (Negative) Ur Culture Indicated? Cult not indicated Urine Opiates Screen Negative (Negative) Ur Oxycodone Screen Negative (Negative) Urine Methadone Screen Negative (Negative) Ur Barbiturates Screen Negative (Negative) U Tricyclic Antidepress Negative (Negative) Ur Phencyclidine Scrn Negative (Negative) Ur Amphetamines Screen Negative (Negative) U Methamphetamines Scrn Negative (Negative) Ur MDMA Scrn (Ecstasy) Negative (Negative) U Benzodiazepines Scrn Negative (Negative) Urine Cocaine Screen Negative (Negative) U Marijuana (THC) Screen Negative (Negative) Ethyl Alcohol mg/dL Discharge Plan Departure Patient Disposition: Home Clinical Impression: Alcoholic intoxication Qualifiers: Complication of substance-induced condition: uncomplicated Qualified Code(s): F10.920 - Alcohol use, unspecified with intoxication, uncomplicated Discharge Date/Time: 04/06/19 19:25 Interventions: ED Discharge Assessment Last Done: 04/06/19 19:24 Instructions: DI for Alcohol Abuse, DI for Alcohol Poisoning Activity Restrictions/Additional Instructions: Please follow up with your primary care provider. Please come back to the emergency department for any acute concerns. Prescriptions: No Action levofloxacin 750 mg tablet 750 mg PO DAILY Qty: 7 RF: 0 ondansetron 4 mg tablet,disintegrating 4 mg PO TID-QID PRN (Reason: nausea and vomiting) Qty: 20 RF: 0 naproxen 500 mg tablet 500 mg PO BID PRN (Reason: pain) Qty: 20 RF: 0 lorazepam [Ativan] 1 mg tablet 1 mg PO QD-BID Qty: 10 RF: 0 ibuprofen 800 mg tablet 800 mg PO Q8H PRN (Reason: pain) RF: 0 clonazepam 1 mg tablet 1 mg PO DAILY RF: 0 buspirone 10 mg tablet 10 mg PO BID RF: 0 <Yin Cano DO - Last Filed: 04/07/19 05:02> Cosign ED Attending Luis Attestation: I was immediately available in the department for consultation. Documentation has been reviewed. I agree with assessment and plan.
== END 2019-04-06 19:25 | disposition home or self-care (01) ==
PROVIDERS: Emergency Provider Nurse Practitioner Family
DX: F10.920 Alcohol use, unspecified with intoxication, uncomplicated (principal); R11.10 Vomiting, unspecified; G25.2 Other specified forms of tremor
CPT/HCPCS: 80053; 80305; 80320; 81001; 84443; 85025; 96361; 96374; 99284; J2405

== ENCOUNTER 2019-04-07 11:47 | Observation (INO) | payer OTHER, MEDICAID, SELFPAY ==
[2019-04-07] VITALS (10 sets, daily range): BP systolic 104–151; BP diastolic 43–86; PULSE 93–134; RESP 17–28; TEMP 36.2–37.7; O2SAT 88–99; BMI 40.6
--- NOTE | 2019-04-07 12:11 | ED.OVERDOSE ---
HPI - Overdose <Caroline Ochoa PA-C - Last Filed: 04/07/19 22:51> General Chief Complaint: Unresponsive Stated Complaint: ETOH, poorly responsive, airway intact Time Seen by Provider: 04/07/19 12:09 Source: EMS Mode of arrival: EMS Limitations: altered mental status History of Present Illness HPI Narrative: This 29-year-old male returns to ED via EMS, found unresponsive per them in a motel room. Patient has been seen here multiple times in the last week, just discharged early this morning. He is not able to answer questions currently. As patient becomes more alert, he states that he feels somewhat anxious intermittently, not complaining of pain, not tremulous. He does say he would like treatment. Related Data Previous Rx's Medication Instructions Recorded losartan 50 mg PO DAILY #30 tab 04/12/19 Allergies Allergy/AdvReac Type Severity Reaction Status Date / Time tramadol Allergy Rash Verified 04/06/19 16:14 Review of Systems <Caroline Ochoa PA-C - Last Filed: 04/07/19 22:51> Review of Systems ROS Unobtainable: Unobtainable due to mental status/LOC PFSH <Caroline Ochoa PA-C - Last Filed: 04/07/19 22:51> Medical History Alcohol abuse (Acute) Kidney stones (Acute) Surgical History No pertinent past surgical history (Acute) Social History household members: friend(s) Smoking Status: Never smoker alcohol intake: current substance use type: other Social History household members: friend(s) and none Smoking Status: Never smoker alcohol intake: current substance use type: other Exam <Caroline Ochoa PA-C - Last Filed: 04/07/19 22:51> Narrative Exam Narrative: GENERAL APPEARANCE: Patient sleeping soundly, opens eyes to loud voice or sternal rub HEENT: PERRL, EOMI, no blood in the ear canals or nares NECK: Supple LUNGS: Clear to auscultation bilaterally. HEART: Rate and rhythm regular without murmur, normal S1 and S2, no S3 or S4. ABDOMEN: Soft, nontender, nondistended, +bowel sounds x4 quadrant EXTREMITIES: No edema or cyanosis Initial Vital Signs Initial Vital Signs: Vital Signs Temperature 97.1 F L 04/07/19 11:35 Pulse Rate 101 H 04/07/19 11:35 Respiratory Rate 18 04/07/19 11:35 Blood Pressure 142/66 H 04/07/19 11:35 Pulse Oximetry 88 L 04/07/19 11:35 <Yin Cano DO - Last Filed: 04/13/19 07:29> Initial Vital Signs Initial Vital Signs: Vital Signs Temperature 97.1 F L 04/07/19 11:35 Pulse Rate 101 H 04/07/19 11:35 Respiratory Rate 18 04/07/19 11:35 Blood Pressure 142/66 H 04/07/19 11:35 Pulse Oximetry 88 L 04/07/19 11:35 Scores <Caroline Ochoa PA-C - Last Filed: 04/07/19 22:51> GCS [place] coma scale eye opening: To pressure Emily coma scale verbal response: Sounds Emily coma scale motor response: Localising Emily coma scale total score: 9 Citation: partially obeys commands only Course <GAVIN Cox Last Filed: 04/07/19 22:51> Additional Information: Patient has gradually become more alert, agreeable to treatment. Social work and [facility] have seen him and initially think he qualifies for involuntary treatment however her are unable to find placement for him. He does want treatment, has had persistent tachycardia and somewhat anxious, treated as needed with Ativan. He has not been tremulous. Earlier in his stay he complained of some right upper quadrant pain, however this was after eating a large amount of food and drink in a short time. No acute findings on ultrasound or lab work, and that had resolved at the time hospitalist was contacted. Hospitalist AMBER Langston agreeable with admission. Patient does not have a local PCP Orders Ordered: Discontinued Medications Acetaminophen (Tylenol) 650 mg PO NOW ONE Stop: 04/07/19 18:56 Last Admin: 04/07/19 19:12 Dose: 650 mg Acetaminophen (Tylenol) 650 mg PO Q6HR PRN PRN Reason: As Needed for Fever/Mild Pain Al Hydrox/Mg Hydrox/Simethicone (Maalox Plus) 30 ml PO Q6HR PRN PRN Reason: Dyspepsia Albuterol (Ventolin) 2.5 mg INH NOW ONE Stop: 04/07/19 12:53 Last Admin: 04/07/19 13:07 Dose: 2.5 mg Calcium Carbonate (Tums) 1,000 mg PO Q4HR PRN PRN Reason: Dyspepsia Enoxaparin Sodium (Lovenox) 40 mg SUBCUT DAILY [facility] Last Admin: 04/08/19 08:54 Dose: 40 mg Sodium Chloride (Normal Saline 0.9%) 1,000 mls @ 1,000 mls/hr IV BOLUS ONE Stop: 04/07/19 13:10 Last Infusion: 04/07/19 15:38 Dose: 0 mls/hr Admin: 04/07/19 13:27 Dose: 1,000 mls/hr Sodium Chloride (Normal Saline 0.9%) 1,000 mls @ 1,000 mls/hr IV BOLUS ONE Stop: 04/07/19 19:19 Last Infusion: 04/07/19 20:00 Dose: 1,000 mls/hr Admin: 04/07/19 18:51 Dose: 1,000 mls/hr Magnesium Sulfate 2 gm/ Folic Acid 1 mg/ Thiamine HCl 100 mg / Multivitamins 10 ml/ Sodium Chloride 1,015.2 mls @ 125 mls/hr IV NOW ONE Stop: 04/08/19 04:32 Last Infusion: 04/08/19 04:55 Dose: 0 mls/hr Admin: 04/07/19 20:56 Dose: 125 mls/hr Sodium Chloride (Normal Saline 0.45%) 1,000 mls @ 100 mls/hr IV CONT [facility] Last Admin: 04/08/19 04:54 Dose: 100 mls/hr Ketorolac Tromethamine (Toradol) 30 mg IV NOW ONE Stop: 04/07/19 17:23 Last Admin: 04/07/19 17:26 Dose: 30 mg Lorazepam (Ativan) 1 mg PO NOW ONE Stop: 04/07/19 15:37 Last Admin: 04/07/19 15:45 Dose: 1 mg Lorazepam (Ativan) 1 mg PO NOW ONE Stop: 04/07/19 16:55 Last Admin: 04/07/19 16:56 Dose: 1 mg Lorazepam (Ativan) 1 mg PO NOW ONE Stop: 04/07/19 19:11 Last Admin: 04/07/19 19:11 Dose: 1 mg Lorazepam (Ativan) 1 mg IV NOW ONE Stop: 04/07/19 19:56 Last Admin: 04/07/19 20:04 Dose: 1 mg Lorazepam (Ativan) 1 mg IV NOW ONE Stop: 04/07/19 20:32 Last Admin: 04/07/19 20:59 Dose: Not Given Lorazepam (Ativan) 1 mg IV NOW ONE Stop: 04/07/19 20:01 Last Admin: 04/07/19 20:00 Dose: 1 mg Lorazepam (Ativan) 2 mg IV NOW ONE Stop: 04/07/19 20:46 Last Admin: 04/07/19 20:49 Dose: 2 mg Lorazepam (Ativan) 2 mg IV NOW ONE Stop: 04/07/19 22:15 Last Admin: 04/07/19 22:14 Dose: 2 mg Lorazepam (Ativan) 0 mg IV CIWAPRN PRN; Protocol PRN Reason: Alcohol Withdrawal Last Admin: 04/08/19 09:04 Dose: 2 mg Admin: 04/08/19 02:42 Dose: 2 mg Admin: 04/07/19 23:00 Dose: 2 mg Ondansetron HCl (Zofran) 4 mg IV Q8HR PRN PRN Reason: Nausea And Vomiting Pantoprazole Sodium (Protonix) 40 mg PO 0600 NATHAN Pantoprazole Sodium (Protonix) 20 mg IV NOW ONE Stop: 04/07/19 22:42 Last Admin: 04/08/19 00:00 Dose: Not Given Pantoprazole Sodium (Protonix) 40 mg IV NOW ONE Stop: 04/07/19 22:42 Last Admin: 04/08/19 00:59 Dose: 40 mg Pantoprazole Sodium (Protonix) 20 mg PO 0600 NATHAN Last Admin: 04/08/19 06:52 Dose: 20 mg Vital Signs - 8 hr 04/07/19 14:49 04/07/19 16:59 04/07/19 19:27 Temperature Pulse Rate 101 H 116 H 127 H Respiratory Rate 20 22 25 H Blood Pressure Blood Pressure [Left Arm] 109/49 L 124/59 L 104/43 L Pulse Oximetry 93 99 94 04/07/19 20:18 04/07/19 21:30 04/07/19 22:23 Temperature Pulse Rate 128 H 134 H 128 H Respiratory Rate 28 H 17 25 H Blood Pressure Blood Pressure [Left Arm] 111/46 L 130/56 L 127/60 Pulse Oximetry 97 96 97 04/07/19 22:39 Temperature 99.8 F H Pulse Rate 131 H Respiratory Rate 18 Blood Pressure 151/86 H Blood Pressure [Left Arm] Pulse Oximetry 94 <Yin Cano DO - Last Filed: 04/13/19 07:29> Orders Ordered: Discontinued Medications Acetaminophen (Tylenol) 650 mg PO NOW ONE Stop: 04/07/19 18:56 Last Admin: 04/07/19 19:12 Dose: 650 mg Acetaminophen (Tylenol) 650 mg PO Q6HR PRN PRN Reason: As Needed for Fever/Mild Pain Al Hydrox/Mg Hydrox/Simethicone (Maalox Plus) 30 ml PO Q6HR PRN PRN Reason: Dyspepsia Albuterol (Ventolin) 2.5 mg INH NOW ONE Stop: 04/07/19 12:53 Last Admin: 04/07/19 13:07 Dose: 2.5 mg Calcium Carbonate (Tums) 1,000 mg PO Q4HR PRN PRN Reason: Dyspepsia Enoxaparin Sodium (Lovenox) 40 mg SUBCUT DAILY [facility] Last Admin: 04/08/19 08:54 Dose: 40 mg Sodium Chloride (Normal Saline 0.9%) 1,000 mls @ 1,000 mls/hr IV BOLUS ONE Stop: 04/07/19 13:10 Last Infusion: 04/07/19 15:38 Dose: 0 mls/hr Admin: 04/07/19 13:27 Dose: 1,000 mls/hr Sodium Chloride (Normal Saline 0.9%) 1,000 mls @ 1,000 mls/hr IV BOLUS ONE Stop: 04/07/19 19:19 Last Infusion: 04/07/19 20:00 Dose: 1,000 mls/hr Admin: 04/07/19 18:51 Dose: 1,000 mls/hr Magnesium Sulfate 2 gm/ Folic Acid 1 mg/ Thiamine HCl 100 mg / Multivitamins 10 ml/ Sodium Chloride 1,015.2 mls @ 125 mls/hr IV NOW ONE Stop: 04/08/19 04:32 Last Infusion: 04/08/19 04:55 Dose: 0 mls/hr Admin: 04/07/19 20:56 Dose: 125 mls/hr Sodium Chloride (Normal Saline 0.45%) 1,000 mls @ 100 mls/hr IV CONT NATHAN Last Admin: 04/08/19 04:54 Dose: 100 mls/hr Ketorolac Tromethamine (Toradol) 30 mg IV NOW ONE Stop: 04/07/19 17:23 Last Admin: 04/07/19 17:26 Dose: 30 mg Lorazepam (Ativan) 1 mg PO NOW ONE Stop: 04/07/19 15:37 Last Admin: 04/07/19 15:45 Dose: 1 mg Lorazepam (Ativan) 1 mg PO NOW ONE Stop: 04/07/19 16:55 Last Admin: 04/07/19 16:56 Dose: 1 mg Lorazepam (Ativan) 1 mg PO NOW ONE Stop: 04/07/19 19:11 Last Admin: 04/07/19 19:11 Dose: 1 mg Lorazepam (Ativan) 1 mg IV NOW ONE Stop: 04/07/19 19:56 Last Admin: 04/07/19 20:04 Dose: 1 mg Lorazepam (Ativan) 1 mg IV NOW ONE Stop: 04/07/19 20:32 Last Admin: 04/07/19 20:59 Dose: Not Given Lorazepam (Ativan) 1 mg IV NOW ONE Stop: 04/07/19 20:01 Last Admin: 04/07/19 20:00 Dose: 1 mg Lorazepam (Ativan) 2 mg IV NOW ONE Stop: 04/07/19 20:46 Last Admin: 04/07/19 20:49 Dose: 2 mg Lorazepam (Ativan) 2 mg IV NOW ONE Stop: 04/07/19 22:15 Last Admin: 04/07/19 22:14 Dose: 2 mg Lorazepam (Ativan) 0 mg IV CIWAPRN PRN; Protocol PRN Reason: Alcohol Withdrawal Last Admin: 04/08/19 09:04 Dose: 2 mg Admin: 04/08/19 02:42 Dose: 2 mg Admin: 04/07/19 23:00 Dose: 2 mg Ondansetron HCl (Zofran) 4 mg IV Q8HR PRN PRN Reason: Nausea And Vomiting Pantoprazole Sodium (Protonix) 40 mg PO 0600 NATHAN Pantoprazole Sodium (Protonix) 20 mg IV NOW ONE Stop: 04/07/19 22:42 Last Admin: 04/08/19 00:00 Dose: Not Given Pantoprazole Sodium (Protonix) 40 mg IV NOW ONE Stop: 04/07/19 22:42 Last Admin: 04/08/19 00:59 Dose: 40 mg Pantoprazole Sodium (Protonix) 20 mg PO 0600 [facility] Last Admin: 04/08/19 06:52 Dose: 20 mg Vital Signs - 8 hr 04/07/19 14:49 04/07/19 16:59 04/07/19 19:27 Temperature Pulse Rate 101 H 116 H 127 H Respiratory Rate 20 22 25 H Blood Pressure Blood Pressure [Left Arm] 109/49 L 124/59 L 104/43 L Pulse Oximetry 93 99 94 04/07/19 20:18 04/07/19 21:30 04/07/19 22:23 Temperature Pulse Rate 128 H 134 H 128 H Respiratory Rate 28 H 17 25 H Blood Pressure Blood Pressure [Left Arm] 111/46 L 130/56 L 127/60 Pulse Oximetry 97 96 97 04/07/19 22:39 Temperature 99.8 F H Pulse Rate 131 H Respiratory Rate 18 Blood Pressure 151/86 H Blood Pressure [Left Arm] Pulse Oximetry 94 MDM - Overdose <Caroline Ochoa PA-C - Last Filed: 04/07/19 22:51> Lab Data Attestation: I reviewed the patient's lab results. Result diagrams: 04/07/19 12:22 04/07/19 12:22 Lab Results 04/07/19 04/07/19 04/07/19 Range/Units 05:56 12:22 12:22 WBC 8.2 (4.5-11.0) X10^3/uL RBC 6.24 H (4.5-5.9) X10^6/uL Hgb 17.9 H (13.5-17.5) g/dL Hct 54.7 H (41-53) % MCV 87.6 (80-100) fL MCH 28.7 (26-34) PG MCHC 32.8 (30-36) % RDW 14.3 (11.6-14.8) % Plt Count 379 (150-400) X10^3/uL Neut % (Auto) 62.9 (50-75) % Lymph % (Auto) 31.6 (25-40) % [place] % (Auto) 4.9 (3-14) % Eos % (Auto) 0.2 L (2-4) % Baso % (Auto) 0.4 (0-2) % Neut # (Auto) 5100 (0217-0420) /uL Lymph # (Auto) 2600 (7794-4320) /uL [place] # (Auto) 400 (0-900) /uL Eos # (Auto) 0 (0-450) /uL Baso # (Auto) 0 (0-100) /uL Sodium 138 (137-145) mmol/L Potassium 3.9 (3.4-5.1) mmol/L Chloride 103 (98-107) mmol/L Carbon Dioxide 22 (22-32) mmol/L BUN 14 (9-20) mg/dL Creatinine 0.70 (0.66-1.25) mg/dL Estimated GFR > 60.0 (>60) mL/min BUN/Creatinine Ratio 20.0 (6-22) Glucose 90 (70-100) mg/dL Calcium 8.6 (8.4-10.2) mg/dL Magnesium (1.6-2.3) mg/dL Total Bilirubin 2.2 H (0.2-1.3) mg/dL AST 60 H (17-59) IU/L ALT 30 (21-72) IU/L Alkaline Phosphatase 84 (38-126) U/L Total Protein 6.8 (6.3-8.2) g/dL Albumin 3.9 (3.5-5.0) g/dL Globulin 2.9 (1.7-4.1) g/dL Albumin/Globulin Ratio 1.3 (1.0-2.8) Lipase (23-300) U/L Urine RBC (0-5/HPF) Urine WBC (0-5/HPF) Ur Squamous Epith Cells (0-5/HPF) Amorphous Sediment Urine Bacteria (None) Hyaline Casts (None) Granular Casts (None) Urine Mucus (Negative) Ur Culture Indicated? Urine Opiates Screen (Negative) Ur Oxycodone Screen (Negative) Urine Methadone Screen (Negative) Ur Barbiturates Screen (Negative) U Tricyclic Antidepress (Negative) Ur Phencyclidine Scrn (Negative) Ur Amphetamines Screen (Negative) U Methamphetamines Scrn (Negative) Ur MDMA Scrn (Ecstasy) (Negative) U Benzodiazepines Scrn (Negative) Urine Cocaine Screen (Negative) U Marijuana (THC) Screen (Negative) Ethyl Alcohol Cancelled 04/07/19 04/07/19 04/07/19 Range/Units 12:22 14:15 14:15 WBC (4.5-11.0) X10^3/uL RBC (4.5-5.9) X10^6/uL Hgb (13.5-17.5) g/dL Hct (41-53) % MCV (80-100) fL MCH (26-34) PG MCHC (30-36) % RDW (11.6-14.8) % Plt Count (150-400) X10^3/uL Neut % (Auto) (50-75) % Lymph % (Auto) (25-40) % [place] % (Auto) (3-14) % Eos % (Auto) (2-4) % Baso % (Auto) (0-2) % Neut # (Auto) (7907-2920) /uL Lymph # (Auto) (3844-6021) /uL [place] # (Auto) (0-900) /uL Eos # (Auto) (0-450) /uL Baso # (Auto) (0-100) /uL Sodium 145 (137-145) mmol/L Potassium 4.9 (3.4-5.1) mmol/L Chloride 102 (98-107) mmol/L Carbon Dioxide 23 (22-32) mmol/L BUN 13 (9-20) mg/dL Creatinine 0.80 (0.66-1.25) mg/dL Estimated GFR > 60.0 (>60) mL/min BUN/Creatinine Ratio 16.3 (6-22) Glucose 76 (70-100) mg/dL Calcium 8.6 (8.4-10.2) mg/dL Magnesium 1.9 (1.6-2.3) mg/dL Total Bilirubin 1.5 H (0.2-1.3) mg/dL AST 74 H (17-59) IU/L ALT 38 (21-72) IU/L Alkaline Phosphatase 109 (38-126) U/L Total Protein 8.8 H (6.3-8.2) g/dL Albumin 5.0 (3.5-5.0) g/dL Globulin 3.8 (1.7-4.1) g/dL Albumin/Globulin Ratio 1.3 (1.0-2.8) Lipase 68 D (23-300) U/L Urine RBC None seen (0-5/HPF) Urine WBC 0-1/hpf (0-5/HPF) Ur Squamous Epith Cells 0-1 /hpf (0-5/HPF) Amorphous Sediment 1+ Urine Bacteria None seen (None) Hyaline Casts 0-1/lpf (None) Granular Casts 1-5/lpf (None) Urine Mucus 1+ H (Negative) Ur Culture Indicated? Cult not indicated Urine Opiates Screen Negative (Negative) Ur Oxycodone Screen Negative (Negative) Urine Methadone Screen Negative (Negative) Ur Barbiturates Screen Negative (Negative) U Tricyclic Antidepress Negative (Negative) Ur Phencyclidine Scrn Negative (Negative) Ur Amphetamines Screen Negative (Negative) U Methamphetamines Scrn Negative (Negative) Ur MDMA Scrn (Ecstasy) Negative (Negative) U Benzodiazepines Scrn Negative (Negative) Urine Cocaine Screen Negative (Negative) U Marijuana (THC) Screen Negative (Negative) Ethyl Alcohol 416 H* Urine Dip Bedside Urine Glucose Negative Bedside Urine Bilirubin - Negative Bedside Urine Ketone +++ 80 Urine Specific [place] 1.025 Bedside Urine Occult Blood ++ Bedside Urine pH 5.0 Bedside Urine Protein + 30 Bedside Urine Urobilinogen - Negative Bedside Urine Nitrite - Negative Bedside Urine Leukocytes - Negative Esterase Imaging Data US - abdomen: Radiologist's impression: Chart Viewer Diagnostics DATE TYPE STATUS AUTHOR Hx 04/07/19 18:19 Alexander Sanchez 04/07/19 12:45 Santana Metz 04/07/19 12:45 Elicia De La Rosa 04/02/19 15:26 Alexander Sanchez 02/19/19 19:19 Tonya Cortez 02/19/19 19:19 Tonya Cortez 08/05/18 23:40 Liam Bone 06/05/18 12:40 Sherman Spencer Anthony S 29, M03 ADM NADIA, AC 208 -1 180.34cm 132.268kg BMI: 40.7kg/m? Search Chart Rash ONSET Today 22:39 Edi Eagle 29 M [address] [address] Ultrasound Report Signed Patient: Edi Eagle [facility]#: [id number] : 1990Acct:[id number] Age/Sex: 29 / MDate of Service: 04/07/19 Loc: [id number] Accession Number: [id number] Procedure: US abdomen limited Ordering Provider: Caroline Ochoa P.A-C PROCEDURE: US ABDOMEN LIMITED INDICATIONS: RIGHT UPPER QUADRANT PAIN TECHNIQUE: Real-time focused scanning was performed of the abdomen, with image documentation. COMPARISON: None. FINDINGS: Study limited by patient scanning characteristics. The liver demonstrates moderate diffuse increased echotexture without focal intrahepatic abnormality. Visualized gallbladder demonstrates normal wall thickness without gallstones, pericholecystic fluid, or abnormal sonographic Frey's. Biliary ducts are not dilated. Common bile duct measures 5 mm. The pancreas was not well-visualized. IMPRESSION: The liver demonstrates diffusely increased echotexture without focal abnormalities consistent with chronic hepatocellular disease/hepatic steatosis. Consider correlation with LFTs. Normal sonographic evaluation of the gallbladder. Dictated by: Alexander Sanchez M.D. on 04/07/2019 at 22:41 Approved by: Alexander Sanchez M.D. on 04/07/2019 at 22:43 ECG Data Attestation: I personally reviewed and interpreted this ECG as follows: (Normal sinus rhythm, rate 95, no ST changes) <Yin Cano DO - Last Filed: 04/13/19 07:29> Lab Data Attestation: I reviewed the patient's lab results. Lab Results 04/07/19 04/07/19 04/07/19 Range/Units 05:56 12:22 12:22 WBC 8.2 (4.5-11.0) X10^3/uL RBC 6.24 H (4.5-5.9) X10^6/uL Hgb 17.9 H (13.5-17.5) g/dL Hct 54.7 H (41-53) % MCV 87.6 (80-100) fL MCH 28.7 (26-34) PG MCHC 32.8 (30-36) % RDW 14.3 (11.6-14.8) % Plt Count 379 (150-400) X10^3/uL Neut % (Auto) 62.9 (50-75) % Lymph % (Auto) 31.6 (25-40) % [place] % (Auto) 4.9 (3-14) % Eos % (Auto) 0.2 L (2-4) % Baso % (Auto) 0.4 (0-2) % Neut # (Auto) 5100 (2454-7170) /uL Lymph # (Auto) 2600 (6383-4086) /uL [place] # (Auto) 400 (0-900) /uL Eos # (Auto) 0 (0-450) /uL Baso # (Auto) 0 (0-100) /uL Sodium 138 (137-145) mmol/L Potassium 3.9 (3.4-5.1) mmol/L Chloride 103 (98-107) mmol/L Carbon Dioxide 22 (22-32) mmol/L BUN 14 (9-20) mg/dL Creatinine 0.70 (0.66-1.25) mg/dL Estimated GFR > 60.0 (>60) mL/min BUN/Creatinine Ratio 20.0 (6-22) Glucose 90 (70-100) mg/dL Calcium 8.6 (8.4-10.2) mg/dL Magnesium (1.6-2.3) mg/dL Total Bilirubin 2.2 H (0.2-1.3) mg/dL AST 60 H (17-59) IU/L ALT 30 (21-72) IU/L Alkaline Phosphatase 84 (38-126) U/L Total Protein 6.8 (6.3-8.2) g/dL Albumin 3.9 (3.5-5.0) g/dL Globulin 2.9 (1.7-4.1) g/dL Albumin/Globulin Ratio 1.3 (1.0-2.8) Lipase (23-300) U/L Urine RBC (0-5/HPF) Urine WBC (0-5/HPF) Ur Squamous Epith Cells (0-5/HPF) Amorphous Sediment Urine Bacteria (None) Hyaline Casts (None) Granular Casts (None) Urine Mucus (Negative) Ur Culture Indicated? Urine Opiates Screen (Negative) Ur Oxycodone Screen (Negative) Urine Methadone Screen (Negative) Ur Barbiturates Screen (Negative) U Tricyclic Antidepress (Negative) Ur Phencyclidine Scrn (Negative) Ur Amphetamines Screen (Negative) U Methamphetamines Scrn (Negative) Ur MDMA Scrn (Ecstasy) (Negative) U Benzodiazepines Scrn (Negative) Urine Cocaine Screen (Negative) U Marijuana (THC) Screen (Negative) Ethyl Alcohol Cancelled 04/07/19 04/07/19 04/07/19 Range/Units 12:22 14:15 14:15 WBC (4.5-11.0) X10^3/uL RBC (4.5-5.9) X10^6/uL Hgb (13.5-17.5) g/dL Hct (41-53) % MCV (80-100) fL MCH (26-34) PG MCHC (30-36) % RDW (11.6-14.8) % Plt Count (150-400) X10^3/uL Neut % (Auto) (50-75) % Lymph % (Auto) (25-40) % [place] % (Auto) (3-14) % Eos % (Auto) (2-4) % Baso % (Auto) (0-2) % Neut # (Auto) (4717-7515) /uL Lymph # (Auto) (5931-7802) /uL [place] # (Auto) (0-900) /uL Eos # (Auto) (0-450) /uL Baso # (Auto) (0-100) /uL Sodium 145 (137-145) mmol/L Potassium 4.9 (3.4-5.1) mmol/L Chloride 102 (98-107) mmol/L Carbon Dioxide 23 (22-32) mmol/L BUN 13 (9-20) mg/dL Creatinine 0.80 (0.66-1.25) mg/dL Estimated GFR > 60.0 (>60) mL/min BUN/Creatinine Ratio 16.3 (6-22) Glucose 76 (70-100) mg/dL Calcium 8.6 (8.4-10.2) mg/dL Magnesium 1.9 (1.6-2.3) mg/dL Total Bilirubin 1.5 H (0.2-1.3) mg/dL AST 74 H (17-59) IU/L ALT 38 (21-72) IU/L Alkaline Phosphatase 109 (38-126) U/L Total Protein 8.8 H (6.3-8.2) g/dL Albumin 5.0 (3.5-5.0) g/dL Globulin 3.8 (1.7-4.1) g/dL Albumin/Globulin Ratio 1.3 (1.0-2.8) Lipase 68 D (23-300) U/L Urine RBC None seen (0-5/HPF) Urine WBC 0-1/hpf (0-5/HPF) Ur Squamous Epith Cells 0-1 /hpf (0-5/HPF) Amorphous Sediment 1+ Urine Bacteria None seen (None) Hyaline Casts 0-1/lpf (None) Granular Casts 1-5/lpf (None) Urine Mucus 1+ H (Negative) Ur Culture Indicated? Cult not indicated Urine Opiates Screen Negative (Negative) Ur Oxycodone Screen Negative (Negative) Urine Methadone Screen Negative (Negative) Ur Barbiturates Screen Negative (Negative) U Tricyclic Antidepress Negative (Negative) Ur Phencyclidine Scrn Negative (Negative) Ur Amphetamines Screen Negative (Negative) U Methamphetamines Scrn Negative (Negative) Ur MDMA Scrn (Ecstasy) Negative (Negative) U Benzodiazepines Scrn Negative (Negative) Urine Cocaine Screen Negative (Negative) U Marijuana (THC) Screen Negative (Negative) Ethyl Alcohol 416 H* Urine Dip Bedside Urine Glucose Negative Bedside Urine Bilirubin - Negative Bedside Urine Ketone +++ 80 Urine Specific [place] 1.025 Bedside Urine Occult Blood ++ Bedside Urine pH 5.0 Bedside Urine Protein + 30 Bedside Urine Urobilinogen - Negative Bedside Urine Nitrite - Negative Bedside Urine Leukocytes - Negative Esterase ECG Data Attestation: I personally reviewed and interpreted this ECG as follows: Prior ECG tracings: available for review Interpretation: A sinus rhythm rate 95 as needed oval [address] changes, T-wave inversion noted in lead 3 only Discharge Plan Departure Patient Disposition: Admitted As Inpatient Clinical Impression: Alcohol withdrawal Qualifiers: Complication of substance-induced condition: with unspecified complication Qualified Code(s): F10.239 - Alcohol dependence with withdrawal, unspecified Discharge Date/Time: 04/07/19 22:25 Interventions: ED Discharge Assessment Last Done: 04/07/19 22:37 Admit Date/Time: 04/07/19 22:13 Admit Provider: Piero Langston <Yin Cano DO - Last Filed: 04/13/19 07:29> Cosign ED Attending Luis Attestation: I was immediately available in the department for consultation. Documentation has been reviewed. I agree with assessment and plan.
--- NOTE | 2019-04-07 12:29 | ED_ITS ---
HPI - Overdose <Caroline Ochoa PA-C - Last Filed: 04/07/19 22:51> General Chief Complaint: Unresponsive Stated Complaint: ETOH, poorly responsive, airway intact Time Seen by Provider: 04/07/19 12:09 Source: EMS Mode of arrival: EMS Limitations: altered mental status History of Present Illness HPI Narrative: This 29-year-old male returns to ED via EMS, found unresponsive per them in a motel room. Patient has been seen here multiple times in the last week, just discharged early this morning. He is not able to answer questions currently. As patient becomes more alert, he states that he feels somewhat anxious intermittently, not complaining of pain, not tremulous. He does say he would like treatment. Related Data Previous Rx's Medication Instructions Recorded losartan 50 mg PO DAILY #30 tab 04/12/19 Allergies Allergy/AdvReac Type Severity Reaction Status Date / Time tramadol Allergy Rash Verified 04/06/19 16:14 Review of Systems <Caroline Ochoa PA-C - Last Filed: 04/07/19 22:51> Review of Systems ROS Unobtainable: Unobtainable due to mental status/LOC PFSH <Caroline Ochoa PA-C - Last Filed: 04/07/19 22:51> Medical History Alcohol abuse (Acute) Kidney stones (Acute) Surgical History No pertinent past surgical history (Acute) Social History household members: friend(s) Smoking Status: Never smoker alcohol intake: current substance use type: other Social History household members: friend(s) and none Smoking Status: Never smoker alcohol intake: current substance use type: other Exam <Caroline Ochoa PA-C - Last Filed: 04/07/19 22:51> Narrative Exam Narrative: GENERAL APPEARANCE: Patient sleeping soundly, opens eyes to loud voice or ster nal rub HEENT: PERRL, EOMI, no blood in the ear canals or nares NECK: Supple LUNGS: Clear to auscultation bilaterally. HEART: Rate and rhythm regular without murmur, normal S1 and S2, no S3 or S4. ABDOMEN: Soft, nontender, nondistended, +bowel sounds x4 quadrant EXTREMITIES: No edema or cyanosis Initial Vital Signs Initial Vital Signs: Vital Signs Temperature 97.1 F L 04/07/19 11:35 Pulse Rate 101 H 04/07/19 11:35 Respiratory Rate 18 04/07/19 11:35 Blood Pressure 142/66 H 04/07/19 11:35 Pulse Oximetry 88 L 04/07/19 11:35 <Yin Cano DO - Last Filed: 04/13/19 07:29> Initial Vital Signs Initial Vital Signs: Vital Signs Temperature 97.1 F L 04/07/19 11:35 Pulse Rate 101 H 04/07/19 11:35 Respiratory Rate 18 04/07/19 11:35 Blood Pressure 142/66 H 04/07/19 11:35 Pulse Oximetry 88 L 04/07/19 11:35 Scores <Caroline Ochoa PA-C - Last Filed: 04/07/19 22:51> GCS Emily coma scale eye opening: To pressure [place] coma scale verbal response: Sounds Emily coma scale motor response: Localising [place] coma scale total score: 9 Citation: partially obeys commands only Course <GAVIN Cox Last Filed: 04/07/19 22:51> Additional Information: Patient has gradually become more alert, agreeable to treatment. Social work and [facility] have seen him and initially think he qualifies for involuntary treatment however her are unable to find placement for him. He does want treatment, has had persistent tachycardia and somewhat anxious, treated as needed with Ativan. He has not been tremulous. Earlier in his stay he complained of some right upper quadrant pain, however this was after eating a large amount of food and drink in a short time. No acute findings on ultrasound or lab work, and that had resolved at the time hospitalist was contacted. Hospitalist AMBER Langston agreeable with admission. Patient does not have a local PCP Orders Ordered: Discontinued Medications Acetaminophen (Tylenol) 650 mg PO NOW ONE Stop: 04/07/19 18:56 Last Admin: 04/07/19 19:12 Dose: 650 mg Acetaminophen (Tylenol) 650 mg PO Q6HR PRN PRN Reason: As Needed for Fever/Mild Pain Al Hydrox/Mg Hydrox/Simethicone (Maalox Plus) 30 ml PO Q6HR PRN PRN Reason: Dyspepsia Albuterol (Ventolin) 2.5 mg INH NOW ONE Stop: 04/07/19 12:53 Last Admin: 04/07/19 13:07 Dose: 2.5 mg Calcium Carbonate (Tums) 1,000 mg PO Q4HR PRN PRN Reason: Dyspepsia Enoxaparin Sodium (Lovenox) 40 mg SUBCUT DAILY [facility] Last Admin: 04/08/19 08:54 Dose: 40 mg Sodium Chloride (Normal Saline 0.9%) 1,000 mls @ 1,000 mls/hr IV BOLUS ONE Stop: 04/07/19 13:10 Last Infusion: 04/07/19 15:38 Dose: 0 mls/hr Admin: 04/07/19 13:27 Dose: 1,000 mls/hr Sodium Chloride (Normal Saline 0.9%) 1,000 mls @ 1,000 mls/hr IV BOLUS ONE Stop: 04/07/19 19:19 Last Infusion: 04/07/19 20:00 Dose: 1,000 mls/hr Admin: 04/07/19 18:51 Dose: 1,000 mls/hr Magnesium Sulfate 2 gm/ Folic Acid 1 mg/ Thiamine HCl 100 mg / Multivitamins 10 ml/ Sodium Chloride 1,015.2 mls @ 125 mls/hr IV NOW ONE Stop: 04/08/19 04:32 Last Infusion: 04/08/19 04:55 Dose: 0 mls/hr Admin: 04/07/19 20:56 Dose: 125 mls/hr Sodium Chloride (Normal Saline 0.45%) 1,000 mls @ 100 mls/hr IV CONT [facility] Last Admin: 04/08/19 04:54 Dose: 100 mls/hr Ketorolac Tromethamine (Toradol) 30 mg IV NOW ONE Stop: 04/07/19 17:23 Last Admin: 04/07/19 17:26 Dose: 30 mg Lorazepam (Ativan) 1 mg PO NOW ONE Stop: 04/07/19 15:37 Last Admin: 04/07/19 15:45 Dose: 1 mg Lorazepam (Ativan) 1 mg PO NOW ONE Stop: 04/07/19 16:55 Last Admin: 04/07/19 16:56 Dose: 1 mg Lorazepam (Ativan) 1 mg PO NOW ONE Stop: 04/07/19 19:11 Last Admin: 04/07/19 19:11 Dose: 1 mg Lorazepam (Ativan) 1 mg IV NOW ONE Stop: 04/07/19 19:56 Last Admin: 04/07/19 20:04 Dose: 1 mg Lorazepam (Ativan) 1 mg IV NOW ONE Stop: 04/07/19 20:32 Last Admin: 04/07/19 20:59 Dose: Not Given Lorazepam (Ativan) 1 mg IV NOW ONE Stop: 04/07/19 20:01 Last Admin: 04/07/19 20:00 Dose: 1 mg Lorazepam (Ativan) 2 mg IV NOW ONE Stop: 04/07/19 20:46 Last Admin: 04/07/19 20:49 Dose: 2 mg Lorazepam (Ativan) 2 mg IV NOW ONE Stop: 04/07/19 22:15 Last Admin: 04/07/19 22:14 Dose: 2 mg Lorazepam (Ativan) 0 mg IV CIWAPRN PRN; Protocol PRN Reason: Alcohol Withdrawal Last Admin: 04/08/19 09:04 Dose: 2 mg Admin: 04/08/19 02:42 Dose: 2 mg Admin: 04/07/19 23:00 Dose: 2 mg Ondansetron HCl (Zofran) 4 mg IV Q8HR PRN PRN Reason: Nausea And Vomiting Pantoprazole Sodium (Protonix) 40 mg PO 0600 NATHAN Pantoprazole Sodium (Protonix) 20 mg IV NOW ONE Stop: 04/07/19 22:42 Last Admin: 04/08/19 00:00 Dose: Not Given Pantoprazole Sodium (Protonix) 40 mg IV NOW ONE Stop: 04/07/19 22:42 Last Admin: 04/08/19 00:59 Dose: 40 mg Pantoprazole Sodium (Protonix) 20 mg PO 0600 NATHAN Last Admin: 04/08/19 06:52 Dose: 20 mg Vital Signs - 8 hr 04/07/19 14:49 04/07/19 16:59 04/07/19 19:27 Temperature Pulse Rate 101 H 116 H 127 H Respiratory Rate 20 22 25 H Blood Pressure Blood Pressure [Left Arm] 109/49 L 124/59 L 104/43 L Pulse Oximetry 93 99 94 04/07/19 20:18 04/07/19 21:30 04/07/19 22:23 Temperature Pulse Rate 128 H 134 H 128 H Respiratory Rate 28 H 17 25 H Blood Pressure Blood Pressure [Left Arm] 111/46 L 130/56 L 127/60 Pulse Oximetry 97 96 97 04/07/19 22:39 Temperature 99.8 F H Pulse Rate 131 H Respiratory Rate 18 Blood Pressure 151/86 H Blood Pressure [Left Arm] Pulse Oximetry 94 <Yin Cano DO - Last Filed: 04/13/19 07:29> Orders Ordered: Discontinued Medications Acetaminophen (Tylenol) 650 mg PO NOW ONE Stop: 04/07/19 18:56 Last Admin: 04/07/19 19:12 Dose: 650 mg Acetaminophen (Tylenol) 650 mg PO Q6HR PRN PRN Reason: As Needed for Fever/Mild Pain Al Hydrox/Mg Hydrox/Simethicone (Maalox Plus) 30 ml PO Q6HR PRN PRN Reason: Dyspepsia Albuterol (Ventolin) 2.5 mg INH NOW ONE Stop: 04/07/19 12:53 Last Admin: 04/07/19 13:07 Dose: 2.5 mg Calcium Carbonate (Tums) 1,000 mg PO Q4HR PRN PRN Reason: Dyspepsia Enoxaparin Sodium (Lovenox) 40 mg SUBCUT DAILY [facility] Last Admin: 04/08/19 08:54 Dose: 40 mg Sodium Chloride (Normal Saline 0.9%) 1,000 mls @ 1,000 mls/hr IV BOLUS ONE Stop: 04/07/19 13:10 Last Infusion: 04/07/19 15:38 Dose: 0 mls/hr Admin: 04/07/19 13:27 Dose: 1,000 mls/hr Sodium Chloride (Normal Saline 0.9%) 1,000 mls @ 1,000 mls/hr IV BOLUS ONE Stop: 04/07/19 19:19 Last Infusion: 04/07/19 20:00 Dose: 1,000 mls/hr Admin: 04/07/19 18:51 Dose: 1,000 mls/hr Magnesium Sulfate 2 gm/ Folic Acid 1 mg/ Thiamine HCl 100 mg / Multivitamins 10 ml/ Sodium Chloride 1,015.2 mls @ 125 mls/hr IV NOW ONE Stop: 04/08/19 04:32 Last Infusion: 04/08/19 04:55 Dose: 0 mls/hr Admin: 04/07/19 20:56 Dose: 125 mls/hr Sodium Chloride (Normal Saline 0.45%) 1,000 mls @ 100 mls/hr IV CONT NATHAN Last Admin: 04/08/19 04:54 Dose: 100 mls/hr Ketorolac Tromethamine (Toradol) 30 mg IV NOW ONE Stop: 04/07/19 17:23 Last Admin: 04/07/19 17:26 Dose: 30 mg Lorazepam (Ativan) 1 mg PO NOW ONE Stop: 04/07/19 15:37 Last Admin: 04/07/19 15:45 Dose: 1 mg Lorazepam (Ativan) 1 mg PO NOW ONE Stop: 04/07/19 16:55 Last Admin: 04/07/19 16:56 Dose: 1 mg Lorazepam (Ativan) 1 mg PO NOW ONE Stop: 04/07/19 19:11 Last Admin: 04/07/19 19:11 Dose: 1 mg Lorazepam (Ativan) 1 mg IV NOW ONE Stop: 04/07/19 19:56 Last Admin: 04/07/19 20:04 Dose: 1 mg Lorazepam (Ativan) 1 mg IV NOW ONE Stop: 04/07/19 20:32 Last Admin: 04/07/19 20:59 Dose: Not Given Lorazepam (Ativan) 1 mg IV NOW ONE Stop: 04/07/19 20:01 Last Admin: 04/07/19 20:00 Dose: 1 mg Lorazepam (Ativan) 2 mg IV NOW ONE Stop: 04/07/19 20:46 Last Admin: 04/07/19 20:49 Dose: 2 mg Lorazepam (Ativan) 2 mg IV NOW ONE Stop: 04/07/19 22:15 Last Admin: 04/07/19 22:14 Dose: 2 mg Lorazepam (Ativan) 0 mg IV CIWAPRN PRN; Protocol PRN Reason: Alcohol Withdrawal Last Admin: 04/08/19 09:04 Dose: 2 mg Admin: 04/08/19 02:42 Dose: 2 mg Admin: 04/07/19 23:00 Dose: 2 mg Ondansetron HCl (Zofran) 4 mg IV Q8HR PRN PRN Reason: Nausea And Vomiting Pantoprazole Sodium (Protonix) 40 mg PO 0600 NATHAN Pantoprazole Sodium (Protonix) 20 mg IV NOW ONE Stop: 04/07/19 22:42 Last Admin: 04/08/19 00:00 Dose: Not Given Pantoprazole Sodium (Protonix) 40 mg IV NOW ONE Stop: 04/07/19 22:42 Last Admin: 04/08/19 00:59 Dose: 40 mg Pantoprazole Sodium (Protonix) 20 mg PO 0600 [facility] Last Admin: 04/08/19 06:52 Dose: 20 mg Vital Signs - 8 hr 04/07/19 14:49 04/07/19 16:59 04/07/19 19:27 Temperature Pulse Rate 101 H 116 H 127 H Respiratory Rate 20 22 25 H Blood Pressure Blood Pressure [Left Arm] 109/49 L 124/59 L 104/43 L Pulse Oximetry 93 99 94 04/07/19 20:18 04/07/19 21:30 04/07/19 22:23 Temperature Pulse Rate 128 H 134 H 128 H Respiratory Rate 28 H 17 25 H Blood Pressure Blood Pressure [Left Arm] 111/46 L 130/56 L 127/60 Pulse Oximetry 97 96 97 04/07/19 22:39 Temperature 99.8 F H Pulse Rate 131 H Respiratory Rate 18 Blood Pressure 151/86 H Blood Pressure [Left Arm] Pulse Oximetry 94 MDM - Overdose <Caroline Ochoa PA-C - Last Filed: 04/07/19 22:51> Lab Data Attestation: I reviewed the patient's lab results. Result diagrams: 04/07/19 12:22 04/07/19 12:22 Lab Results 04/07/19 04/07/19 04/07/19 Range/Units 05:56 12:22 12:22 WBC 8.2 (4.5-11.0) X10^3/uL RBC 6.24 H (4.5-5.9) X10^6/uL Hgb 17.9 H (13.5-17.5) g/dL Hct 54.7 H (41-53) % MCV 87.6 (80-100) fL MCH 28.7 (26-34) PG MCHC 32.8 (30-36) % RDW 14.3 (11.6-14.8) % Plt Count 379 (150-400) X10^3/uL Neut % (Auto) 62.9 (50-75) % Lymph % (Auto) 31.6 (25-40) % Banks % (Auto) 4.9 (3-14) % Eos % (Auto) 0.2 L (2-4) % Baso % (Auto) 0.4 (0-2) % Neut # (Auto) 5100 (1378-0395) /uL Lymph # (Auto) 2600 (9849-8858) /uL Banks # (Auto) 400 (0-900) /uL Eos # (Auto) 0 (0-450) /uL Baso # (Auto) 0 (0-100) /uL Sodium 138 (137-145) mmol/L Potassium 3.9 (3.4-5.1) mmol/L Chloride 103 (98-107) mmol/L Carbon Dioxide 22 (22-32) mmol/L BUN 14 (9-20) mg/dL Creatinine 0.70 (0.66-1.25) mg/dL Estimated GFR > 60.0 (>60) mL/min BUN/Creatinine Ratio 20.0 (6-22) Glucose 90 (70-100) mg/dL Calcium 8.6 (8.4-10.2) mg/dL Magnesium (1.6-2.3) mg/dL Total Bilirubin 2.2 H (0.2-1.3) mg/dL AST 60 H (17-59) IU/L ALT 30 (21-72) IU/L Alkaline Phosphatase 84 (38-126) U/L Total Protein 6.8 (6.3-8.2) g/dL Albumin 3.9 (3.5-5.0) g/dL Globulin 2.9 (1.7-4.1) g/dL Albumin/Globulin Ratio 1.3 (1.0-2.8) Lipase (23-300) U/L Urine RBC (0-5/HPF) Urine WBC (0-5/HPF) Ur Squamous Epith Cells (0-5/HPF) Amorphous Sediment Urine Bacteria (None) Hyaline Casts (None) Granular Casts (None) Urine Mucus (Negative) Ur Culture Indicated? Urine Opiates Screen (Negative) Ur Oxycodone Screen (Negative) Urine Methadone Screen (Negative) Ur Barbiturates Screen (Negative) U Tricyclic Antidepress (Negative) Ur Phencyclidine Scrn (Negative) Ur Amphetamines Screen (Negative) U Methamphetamines Scrn (Negative) Ur MDMA Scrn (Ecstasy) (Negative) U Benzodiazepines Scrn (Negative) Urine Cocaine Screen (Negative) U Marijuana (THC) Screen (Negative) Ethyl Alcohol Cancelled 04/07/19 04/07/19 04/07/19 Range/Units 12:22 14:15 14:15 WBC (4.5-11.0) X10^3/uL RBC (4.5-5.9) X10^6/uL Hgb (13.5-17.5) g/dL Hct (41-53) % MCV (80-100) fL MCH (26-34) PG MCHC (30-36) % RDW (11.6-14.8) % Plt Count (150-400) X10^3/uL Neut % (Auto) (50-75) % Lymph % (Auto) (25-40) % Banks % (Auto) (3-14) % Eos % (Auto) (2-4) % Baso % (Auto) (0-2) % Neut # (Auto) (8119-7994) /uL Lymph # (Auto) (1974-9863) /uL Banks # (Auto) (0-900) /uL Eos # (Auto) (0-450) /uL Baso # (Auto) (0-100) /uL Sodium 145 (137-145) mmol/L Potassium 4.9 (3.4-5.1) mmol/L Chloride 102 (98-107) mmol/L Carbon Dioxide 23 (22-32) mmol/L BUN 13 (9-20) mg/dL Creatinine 0.80 (0.66-1.25) mg/dL Estimated GFR > 60.0 (>60) mL/min BUN/Creatinine Ratio 16.3 (6-22) Glucose 76 (70-100) mg/dL Calcium 8.6 (8.4-10.2) mg/dL Magnesium 1.9 (1.6-2.3) mg/dL Total Bilirubin 1.5 H (0.2-1.3) mg/dL AST 74 H (17-59) IU/L ALT 38 (21-72) IU/L Alkaline Phosphatase 109 (38-126) U/L Total Protein 8.8 H (6.3-8.2) g/dL Albumin 5.0 (3.5-5.0) g/dL Globulin 3.8 (1.7-4.1) g/dL Albumin/Globulin Ratio 1.3 (1.0-2.8) Lipase 68 D (23-300) U/L Urine RBC None seen (0-5/HPF) Urine WBC 0-1/hpf (0-5/HPF) Ur Squamous Epith Cells 0-1 /hpf (0-5/HPF) Amorphous Sediment 1+ Urine Bacteria None seen (None) Hyaline Casts 0-1/lpf (None) Granular Casts 1-5/lpf (None) Urine Mucus 1+ H (Negative) Ur Culture Indicated? Cult not indicated Urine Opiates Screen Negative (Negative) Ur Oxycodone Screen Negative (Negative) Urine Methadone Screen Negative (Negative) Ur Barbiturates Screen Negative (Negative) U Tricyclic Antidepress Negative (Negative) Ur Phencyclidine Scrn Negative (Negative) Ur Amphetamines Screen Negative (Negative) U Methamphetamines Scrn Negative (Negative) Ur MDMA Scrn (Ecstasy) Negative (Negative) U Benzodiazepines Scrn Negative (Negative) Urine Cocaine Screen Negative (Negative) U Marijuana (THC) Screen Negative (Negative) Ethyl Alcohol 416 H* Urine Dip Bedside Urine Glucose Negative Bedside Urine Bilirubin - Negative Bedside Urine Ketone +++ 80 Urine Specific [place] 1.025 Bedside Urine Occult Blood ++ Bedside Urine pH 5.0 Bedside Urine Protein + 30 Bedside Urine Urobilinogen - Negative Bedside Urine Nitrite - Negative Bedside Urine Leukocytes - Negative Esterase Imaging Data US - abdomen: Radiologist's impression: Chart Viewer Diagnostics DATE TYPE STATUS AUTHOR Hx 04/07/19 18:19 Alexander Sanchez 04/07/19 12:45 Santana Metz 04/07/19 12:45 Elicia De La Rosa 04/02/19 15:26 Alexander Sanchez 02/19/19 19:19 Tonya Cortez 02/19/19 19:19 Tonya Cortez 08/05/18 23:40 Liam Bone 06/05/18 12:40 Sherman Spencer Anthony S 29, M03 ADM NADIA, AC 208 -1 180.34cm 132.268kg BMI: 40.7kg/m? Search Chart Rash ONSET Today 22:39 Edi Eagle 29 M [address] [address] Ultrasound Report Signed Patient: Edi Eagle [facility]#: [id number] : 1990Acct:[id number] Age/Sex: 29 / MDate of Service: 04/07/19 Loc: IT448-7 Accession Number: [id number] Procedure: US abdomen limited Ordering Provider: Caroline Ochoa P.A-C PROCEDURE: US ABDOMEN LIMITED INDICATIONS: RIGHT UPPER QUADRANT PAIN TECHNIQUE: Real-time focused scanning was performed of the abdomen, with image documentation. COMPARISON: None. FINDINGS: Study limited by patient scanning characteristics. The liver demonstrates moderate diffuse increased echotexture without focal intrahepatic abnormality. Visualized gallbladder demonstrates normal wall thickness without gallstones, pericholecystic fluid, or abnormal sonographic Frey's. Biliary ducts are not dilated. Common bile duct measures 5 mm. The pancreas was not well-visualized. IMPRESSION: The liver demonstrates diffusely increased echotexture without focal ab normalities consistent with chronic hepatocellular disease/hepatic steatosis. Consider correlation with LFTs. Normal sonographic evaluation of the gallbladder. Dictated by: Alexander Sanchez M.D. on 04/07/2019 at 22:41 Approved by: Alexander Sanchez M.D. on 04/07/2019 at 22:43 ECG Data Attestation: I personally reviewed and interpreted this ECG as follows: (Normal sinus rhythm, rate 95, no ST changes) <Yin Cano DO - Last Filed: 04/13/19 07:29> Lab Data Attestation: I reviewed the patient's lab results. Lab Results 04/07/19 04/07/19 04/07/19 Range/Units 05:56 12:22 12:22 WBC 8.2 (4.5-11.0) X10^3/uL RBC 6.24 H (4.5-5.9) X10^6/uL Hgb 17.9 H (13.5-17.5) g/dL Hct 54.7 H (41-53) % MCV 87.6 (80-100) fL MCH 28.7 (26-34) PG MCHC 32.8 (30-36) % RDW 14.3 (11.6-14.8) % Plt Count 379 (150-400) X10^3/uL Neut % (Auto) 62.9 (50-75) % Lymph % (Auto) 31.6 (25-40) % Banks % (Auto) 4.9 (3-14) % Eos % (Auto) 0.2 L (2-4) % Baso % (Auto) 0.4 (0-2) % Neut # (Auto) 5100 (7292-1025) /uL Lymph # (Auto) 2600 (4518-7901) /uL Banks # (Auto) 400 (0-900) /uL Eos # (Auto) 0 (0-450) /uL Baso # (Auto) 0 (0-100) /uL Sodium 138 (137-145) mmol/L Potassium 3.9 (3.4-5.1) mmol/L Chloride 103 (98-107) mmol/L Carbon Dioxide 22 (22-32) mmol/L BUN 14 (9-20) mg/dL Creatinine 0.70 (0.66-1.25) mg/dL Estimated GFR > 60.0 (>60) mL/min BUN/Creatinine Ratio 20.0 (6-22) Glucose 90 (70-100) mg/dL Calcium 8.6 (8.4-10.2) mg/dL Magnesium (1.6-2.3) mg/dL Total Bilirubin 2.2 H (0.2-1.3) mg/dL AST 60 H (17-59) IU/L ALT 30 (21-72) IU/L Alkaline Phosphatase 84 (38-126) U/L Total Protein 6.8 (6.3-8.2) g/dL Albumin 3.9 (3.5-5.0) g/dL Globulin 2.9 (1.7-4.1) g/dL Albumin/Globulin Ratio 1.3 (1.0-2.8) Lipase (23-300) U/L Urine RBC (0-5/HPF) Urine WBC (0-5/HPF) Ur Squamous Epith Cells (0-5/HPF) Amorphous Sediment Urine Bacteria (None) Hyaline Casts (None) Granular Casts (None) Urine Mucus (Negative) Ur Culture Indicated? Urine Opiates Screen (Negative) Ur Oxycodone Screen (Negative) Urine Methadone Screen (Negative) Ur Barbiturates Screen (Negative) U Tricyclic Antidepress (Negative) Ur Phencyclidine Scrn (Negative) Ur Amphetamines Screen (Negative) U Methamphetamines Scrn (Negative) Ur MDMA Scrn (Ecstasy) (Negative) U Benzodiazepines Scrn (Negative) Urine Cocaine Screen (Negative) U Marijuana (THC) Screen (Negative) Ethyl Alcohol Cancelled 04/07/19 04/07/19 04/07/19 Range/Units 12:22 14:15 14:15 WBC (4.5-11.0) X10^3/uL RBC (4.5-5.9) X10^6/uL Hgb (13.5-17.5) g/dL Hct (41-53) % MCV (80-100) fL MCH (26-34) PG MCHC (30-36) % RDW (11.6-14.8) % Plt Count (150-400) X10^3/uL Neut % (Auto) (50-75) % Lymph % (Auto) (25-40) % Banks % (Auto) (3-14) % Eos % (Auto) (2-4) % Baso % (Auto) (0-2) % Neut # (Auto) (6985-1602) /uL Lymph # (Auto) (5111-5872) /uL Banks # (Auto) (0-900) /uL Eos # (Auto) (0-450) /uL Baso # (Auto) (0-100) /uL Sodium 145 (137-145) mmol/L Potassium 4.9 (3.4-5.1) mmol/L Chloride 102 (98-107) mmol/L Carbon Dioxide 23 (22-32) mmol/L BUN 13 (9-20) mg/dL Creatinine 0.80 (0.66-1.25) mg/dL Estimated GFR > 60.0 (>60) mL/min BUN/Creatinine Ratio 16.3 (6-22) Glucose 76 (70-100) mg/dL Calcium 8.6 (8.4-10.2) mg/dL Magnesium 1.9 (1.6-2.3) mg/dL Total Bilirubin 1.5 H (0.2-1.3) mg/dL AST 74 H (17-59) IU/L ALT 38 (21-72) IU/L Alkaline Phosphatase 109 (38-126) U/L Total Protein 8.8 H (6.3-8.2) g/dL Albumin 5.0 (3.5-5.0) g/dL Globulin 3.8 (1.7-4.1) g/dL Albumin/Globulin Ratio 1.3 (1.0-2.8) Lipase 68 D (23-300) U/L Urine RBC None seen (0-5/HPF) Urine WBC 0-1/hpf (0-5/HPF) Ur Squamous Epith Cells 0-1 /hpf (0-5/HPF) Amorphous Sediment 1+ Urine Bacteria None seen (None) Hyaline Casts 0-1/lpf (None) Granular Casts 1-5/lpf (None) Urine Mucus 1+ H (Negative) Ur Culture Indicated? Cult not indicated Urine Opiates Screen Negative (Negative) Ur Oxycodone Screen Negative (Negative) Urine Methadone Screen Negative (Negative) Ur Barbiturates Screen Negative (Negative) U Tricyclic Antidepress Negative (Negative) Ur Phencyclidine Scrn Negative (Negative) Ur Amphetamines Screen Negative (Negative) U Methamphetamines Scrn Negative (Negative) Ur MDMA Scrn (Ecstasy) Negative (Negative) U Benzodiazepines Scrn Negative (Negative) Urine Cocaine Screen Negative (Negative) U Marijuana (THC) Screen Negative (Negative) Ethyl Alcohol 416 H* Urine Dip Bedside Urine Glucose Negative Bedside Urine Bilirubin - Negative Bedside Urine Ketone +++ 80 Urine Specific Blackwell 1.025 Bedside Urine Occult Blood ++ Bedside Urine pH 5.0 Bedside Urine Protein + 30 Bedside Urine Urobilinogen - Negative Bedside Urine Nitrite - Negative Bedside Urine Leukocytes - Negative Esterase ECG Data Attestation: I personally reviewed and interpreted this ECG as follows: Prior ECG tracings: available for review Interpretation: A sinus rhythm rate 95 as needed oval [address] changes, T-wave inversion noted in lead 3 only Discharge Plan Departure Patient Disposition: Admitted As Inpatient Clinical Impression: Alcohol withdrawal Qualifiers: Complication of substance-induced condition: with unspecified complication Qualified Code(s): F10.239 - Alcohol dependence with withdrawal, unspecified Discharge Date/Time: 04/07/19 22:25 Interventions: ED Discharge Assessment Last Done: 04/07/19 22:37 Admit Date/Time: 04/07/19 22:13 Admit Provider: Piero Langston <Yin Cano DO - Last Filed: 04/13/19 07:29> Cosign ED Attending uLis Attestation: I was immediately available in the dep artment for consultation. Documentation has been reviewed. I agree with assessment and plan.
[2019-04-07 12:31] LABS: Add Manual Diff / Slide Review NO; Basophils Absolute Auto 0 /uL (0-100); Basophils Percent Auto 0.4 % (0-2); Eosinophils Absolute Auto 0 /uL (0-450); Eosinophils Percent Auto 0.2 % (2-4); Hematocrit 54.7 % (41-53); Hemoglobin 17.9 g/dL (13.5-17.5); Lymphocytes Absolute Auto 2600 /uL (1100-4500); Lymphocytes Percent Auto 31.6 % (25-40); Mean Corpuscular HGB Conc 32.8 % (30-36); Mean Corpuscular Hemoglobin 28.7 PG (26-34); Mean Corpuscular Volume 87.6 fL (80-100); Monocytes Absolute Auto 400 /uL (0-900); Monocytes Percent Auto 4.9 % (3-14); Neutrophils Absolute Auto 5100 /uL (1500-7000); Neutrophils Percent Auto 62.9 % (50-75); Platelet Count 379 X10^3/uL (150-400); Red Blood Cell Count 6.24 X10^6/uL (4.5-5.9); Red Cell Distribution Width 14.3 % (11.6-14.8); White Blood Cell Count 8.2 X10^3/uL (4.5-11.0)
[2019-04-07 12:37] LABS: Alanine Aminotransferase 38 IU/L (21-72); Albumin Globulin Ratio 1.3 (1.0-2.8); Alkaline Phosphatase 109 U/L (38-126); BUN Creatinine Ratio 16.3 (6-22); Bilirubin Total 1.5 mg/dL (0.2-1.3); Blood Urea Nitrogen 13 mg/dL (9-20); Calcium 8.6 mg/dL (8.4-10.2); Carbon Dioxide 23 mmol/L (22-32); Chloride 102 mmol/L (98-107); Estimated Glomerular Filt Rate > 60.0 mL/min (>60); Globulin 3.8 g/dL (1.7-4.1); Glucose 76 mg/dL (70-100); Lipase 68 U/L (23-300); Magnesium 1.9 mg/dL (1.6-2.3); Sodium 145 mmol/L (137-145); Total Protein 8.8 g/dL (6.3-8.2)
[2019-04-07 12:42] LABS: Aspartate Aminotransferase 74 IU/L (17-59); Potassium 4.9 mmol/L (3.4-5.1)
[2019-04-07 12:44] LABS: HEMOLYSIS 60 (0-50)
--- NOTE | 2019-04-07 12:45 | DI.CT.S_ITS ---
PROCEDURE: CT CERVICAL SPINE WO CON INDICATIONS: intoxication, unk whether trauma TECHNIQUE: Noncontrast 3 mm thick sections acquired from the skull base to the T4 level. Sagittal and coronal reformats were then constructed. For radiation dose reduction, the following was used: automated exposure control, adjustment of mA and/or kV according to patient size. COMPARISON: [facility], CT, CT CERVICAL SPINE WO CON, 02/19/2019, 19:32. FINDINGS: Image quality: Excellent. Bones: No fractures or dislocations. Visualized superior ribs are intact. Soft tissues: Prevertebral soft tissues are normal in thickness. No paravertebral hematomas. No apical pneumothoraces. IMPRESSION: No fracture. Dictated by: Elicia De La Rosa M.D. on 04/07/2019 at 13:16 Approved by: Elicia De La Rosa M.D. on 04/07/2019 at 13:18
--- NOTE | 2019-04-07 12:45 | DI.CT.S_ITS ---
PROCEDURE: CT HEAD/BRAIN WO CON INDICATIONS: intoxication, unknown whether trauma TECHNIQUE: Noncontrast 4.5 mm thick angled axial sections acquired from the foramen magnum to the vertex, with coronal and sagittal reformats. For radiation dose reduction, the following was used: automated exposure control, adjustment of mA and/or kV according to patient size. COMPARISON: [facility], CT, CT HEAD/BRAIN WO CON, 02/19/2019, 19:32. FINDINGS: Image quality: Excellent. CSF spaces: Basal cisterns are patent. No extra-axial fluid collections. Ventricles are normal in size and shape. Brain: No intracranial hemorrhage, mass, or mass effect. Gonzalez-white matter interface is preserved. Skull and face: Calvarium and visualized facial bones are intact, without suspicious lesions. Sinuses: Visualized sinuses demonstrate near-complete opacification of the right maxillary sinus by a sensitization cyst or mucosal polyp. There is also a smaller polyp or retention cyst within the left maxillary sinus. The mastoid air cells are clear. IMPRESSION: 1. No acute intracranial abnormality. 2. Maxillary sinus mucosal disease bilaterally. Dictated by: Santana Metz M.D. on 04/07/2019 at 13:07 Approved by: Santana Metz M.D. on 04/07/2019 at 13:09
[2019-04-07 12:47] LABS: Ethanol (ETOH) 416 mg/dL
[2019-04-07] MEDS: ALBUTEROL 2.5 MG/3 ML NEB (ADULT) INH (13:07)
--- NOTE | 2019-04-07 13:26 | PC.NURSE ---
unable to do ciwa at this time. pt is unresponsive. responds briefly to tactile and verbal stimuli. falls asleep easily. maintaining airway.
[2019-04-07] MEDS: SODIUM CHLORIDE 0.9% 1,000 ML 1000 ML IV ×2 (13:27→18:51)
--- NOTE | 2019-04-07 14:02 | PC.NURSE ---
c-collar cleared to be removed by Caroline Ochoa.
[2019-04-07 14:35] LABS: Bacteria Urine None Seen; RBC Urine None Seen (0-5/HPF)
[2019-04-07 14:40] LABS: Urine Amphetamines Negative (Negative); Urine Barbiturates Negative (Negative); Urine Benzodiazepines Negative (Negative); Urine Cocaine Negative (Negative); Urine MDMA Negative (Negative); Urine Methadone Negative (Negative); Urine Methamphetamines Negative (Negative); Urine Morphine/Opi cutoff 2000 Negative (Negative); Urine Oxycodone Negative (Negative); Urine Phencyclidine Negative (Negative); Urine Tetrahydrocannabinol Negative (Negative); Urine Tricyclic Antidepressant Negative (Negative)
[2019-04-07 14:59] LABS: Amorphous Sediment Urine 1+; Culture Indicated Urine Cult Not Indicated; Granular Casts Urine 1-5/LPF; Hyaline Casts Urine 0-1/LPF; Mucus Urine 1+ (Negative); Squamous Epithelial Cell Urine 0-1 /HPF (0-5/HPF); WBC Urine 0-1/HPF (0-5/HPF)
--- NOTE | 2019-04-07 15:41 | PC.NURSE ---
pt tolerating po fluids crackers too.
[2019-04-07] MEDS: LORazepam 0.5 MG TABLET 1 MG PO ×3 (15:45→19:11)
[2019-04-07] MEDS: KETOROLAC 60 MG/2 ML VIAL 30 MG IV (17:26)
--- NOTE | 2019-04-07 18:08 | CM.SWNOTE ---
DCP: [facility] for Substance Abuse-Omari's Law Payor: [employer] PCP: None WANT AD SUPERVISOR substance abuse assessment and coordination for inpatient treatment. This is pt's 6th ED visit for alcohol overdose/withdrawal. He was just discharged yesterday morning with the plan for him to go straight to [facility] substance abuse facility. He never made it there. EMS brought him in today after he was found unresponsive in his motel. He has been here 04/02, 04/05, 04/06, and again today. Prior to this, he had presented twice in January for the same concerns. He is expressing wanting to go to treatment, however, based on the acuity of his overdose, frequency, and lack of follow-through, this WANT AD SUPERVISOR assessed pt as a danger to himself due to substance abuse. He meets the criteria for Omari's Law. DCR en route to assess. Pt doesn't have a PCP, WANT AD SUPERVISOR provided him with the Health Vice President Process's card in order to help him find a provider in this area who is currently accepting new patients. Discharge Planning/Care Management ED Crisis Response Assessment Start: 04/07/19 17:51 Freq: Status: Active Protocol: Document 04/07/19 17:53 DPL (Rec: 04/07/19 18:08 DPL [email or web address]) ED Crisis Response Assessment WANT AD SUPERVISOR Assessment Type Substance Abuse Reason for WANT AD SUPERVISOR Referral Assess for substance abuse detox/treatment placement. Referred by ED Provider Presenting Problem Pt brought in by EMS, minimally responsive, after alcohol overdose. Pt was just discharged yesterday from ED to a substance abuse treatment facility, however he never showed up. This is patient's 6th ED visit for alcohol overdose and related complaints. He acknowledges wanting treatment, however he has expressed that each time he has presented to the ED. Mental health diagnosis No mental health diagnosis noted in chart history. Pt is taking buspirone and clonazapam for ongoing alcohol withdrawl symptoms. [facility]OA/CMS check Yes Suicidal thoughts No Current Suicidal thoughts No Prior Suicide attempts No Current plan for self harm No Access to guns and weapons No Thoughts of harm to others No Past thoughts of harm to others No Current thoughts of harming others No Prior attempts to harm others No Current plan to harm others No Current Risk factors Substance abuse Risk factor comments Pt has a long history of substance abuse that has become progressively worse. He has presented to the ED frequently for detox and acute alcohol withdrawl symptoms. Relevant Medical History Alcohol abuse, kidney stones. Crisis Plan WANT AD SUPERVISOR called [facility] and requested DCR dispatch for substance abuse [facility] Action taken Transfer higher level Transferred MH INPT Additional Comment Substance abuse inpt/BEAU.
--- NOTE | 2019-04-07 18:19 | DI.US.S_ITS ---
PROCEDURE: US ABDOMEN LIMITED INDICATIONS: RIGHT UPPER QUADRANT PAIN TECHNIQUE: Real-time focused scanning was performed of the abdomen, with image documentation. COMPARISON: None. FINDINGS: Study limited by patient scanning characteristics. The liver demonstrates moderate diffuse increased echotexture without focal intrahepatic abnormality. Visualized gallbladder demonstrates normal wall thickness without gallstones, pericholecystic fluid, or abnormal sonographic Frey's. Biliary ducts are not dilated. Common bile duct measures 5 mm. The pancreas was not well-visualized. IMPRESSION: The liver demonstrates diffusely increased echotexture without focal abnormalities consistent with chronic hepatocellular disease/hepatic steatosis. Consider correlation with LFTs. Normal sonographic evaluation of the gallbladder. Dictated by: Alexander Sanchez M.D. on 04/07/2019 at 22:41 Approved by: Alexander Sanchez M.D. on 04/07/2019 at 22:43
[2019-04-07] MEDS: ACETAMINOPHEN 325 MG TABLET 650 MG PO (19:12)
[2019-04-07] MEDS: LORazepam 2 MG/ML SYRINGE 1 MG IV ×2 (20:00→20:04)
[2019-04-07] MEDS: LORazepam 2 MG/ML SYRINGE IV ×3 (20:49→23:00)
[2019-04-07] MEDS: MAGNESIUM SULFATE 2 GM, FOLIC ACID 1 MG, THIAMINE 100 MG, MULTIVITAMIN 10 ML in SODIUM ... IV (20:56)
--- NOTE | 2019-04-07 22:44 | PC.ADMIT ---
Addendum entered by Lily Browning R.N. 04/07/19 22:45: Pt ID placed in safe, no other belongings w/patient Original Note: [email or web address] Admission Note: The patient,Edi Eagle,29 y/o, was given written information regarding hospital policies, unit procedures and contact persons. Patient's smoking status: Never smoker. Vital Signs - 8 hr 04/07/19 14:49 04/07/19 16:59 04/07/19 19:27 Temperature Pulse Rate 101 H 116 H 127 H Respiratory Rate 20 22 25 H Blood Pressure Blood Pressure [Left Arm] 109/49 L 124/59 L 104/43 L Pulse Oximetry 93 99 94 04/07/19 20:18 04/07/19 21:30 04/07/19 22:23 Temperature Pulse Rate 128 H 134 H 128 H Respiratory Rate 28 H 17 25 H Blood Pressure Blood Pressure [Left Arm] 111/46 L 130/56 L 127/60 Pulse Oximetry 97 96 97 04/07/19 22:39 Temperature 99.8 F H Pulse Rate 131 H Respiratory Rate 18 Blood Pressure 151/86 H Blood Pressure [Left Arm] Pulse Oximetry 94 Pt up to ac floor via wheelchair. awake and alert but occasionally closes eyes. wakes up easily. banana bag infusing, seizure pads placed.
[2019-04-08 00:45] VITALS: O2SAT 96
[2019-04-08] MEDS: PANTOPRAZOLE 40 MG VIAL IV (00:59)
--- NOTE | 2019-04-08 01:10 | PM.HP.1 ---
History of Present Illness Date Patient Seen: 04/07/19 Time Patient Seen: 22:30 Chief complaint: ETOH, poorly responsive, airway intact Narrative: This is a 29-year-old male patient with history of alcohol abuse, kidney stones and anxiety who presents today for alcohol withdrawal symptoms. Patient was seen in the emergency room yesterday for the same complaint at which time the patient requests to be discharged. The patient returns today obtained with a blood alcohol of 416. The patient has remained in the ER for protracted stay with worsening withdrawal symptoms. He reports his last drink was yesterday evening. He admits to drinking for 6 years approximately 1/5 of vodka daily The patient has associated complaints of tremulousness, shaking and anxiety. He states that this juncture that he would like to have detox. He reports no recent illness, no fevers or chills, headaches or dizziness, nasal congestion or sore throat. Reports no chest pain or palpitations, shortness of breath cough or wheezing. He does complain of abdominal pain secondary to vomiting but reports no constipation or diarrhea. Reports no urinary difficulties. He reports no joint or extremity pains or problems. Patient presented to the ER at 11:35 a.m. today and was afebrile with temperature 97.1?, heart rate 101, blood pressure 142/66, respirations of 18 with oxygen saturation of 88% on room air which on re-evaluation 20 minutes later was 97-99% on room air. On CBC has a normal white count 20.2 and elevated hemoglobin of 17.9 hematocrit of 54.7 with platelets of 379. His chemistries are unremarkable with lipase of 68 however he does have an elevated bilirubin at 1.5, AST of 74 ALT of 33 alk-phos of 109. His urinalysis screening was unremarkable. The patient is admitted for acute alcohol withdrawal Patient History Medical History Alcohol abuse (Acute) Kidney stones (Acute) Surgical History No pertinent past surgical history (Acute) Social History household members: friend(s) Smoking Status: Never smoker alcohol intake: current substance use type: other Family & Social History Social History: household members friend(s) Prior Living Arrangements Apartment/Condo Safety & Behavioral: Feels Safe in Current Unwilling to Answer Environment Been Physically Hurt or Unwilling to Answer Threatened By a Person Suicidal Ideation Description None Suicide Plan Description No Plan Tobacco & Substance use: Smoking Status Never smoker alcohol intake current alcohol intake frequency 3 or more drinks per day Substance Use Type does not use Comment: The patient preference lives in apartment with his girlfriend of 6 months. He provides no significant family medical history. Smoking: The patient denies ever smoking Alcohol: Patient admits to drinking for 6 years approximately 1/5 of vodka daily Substance use: Patient denies recreation pharmaceuticals herbal or cannabis products. Advanced directives: Patient does not have advanced directive but does wishes to be a FULL CODE. He designates his girlfriend Simin to be his surrogate decision maker. Meds Home Medications Medication Instructions Recorded Confirmed Type levofloxacin 750 mg PO DAILY #7 tab 04/02/19 04/06/19 Rx naproxen 500 mg PO BID PRN #20 tab 04/02/19 04/06/19 Rx ondansetron 4 mg PO TID-QID PRN #20 tab 04/02/19 04/06/19 Rx lorazepam [Ativan] 1 mg PO QD-BID #10 tab 04/05/19 04/06/19 Rx buspirone 10 mg PO BID 04/06/19 04/06/19 History clonazepam 1 mg PO DAILY 04/06/19 04/06/19 History ibuprofen 800 mg PO Q8H PRN 04/06/19 04/06/19 History Allergies Allergy/AdvReac Type Severity Reaction Status Date / Time tramadol Allergy Rash Verified 04/06/19 16:14 Review of Systems Review of Systems All systems reviewed & are unremarkable except as noted in HPI and below Exam Vital Signs (past 8 hours): - 04/07/19 19:27 04/07/19 20:18 04/07/19 21:30 Temperature Pulse Rate 127 H 128 H 134 H Respiratory Rate 25 H 28 H 17 Blood Pressure Blood Pressure [Left Arm] 104/43 L 111/46 L 130/56 L Pulse Oximetry 94 97 96 04/07/19 22:23 04/07/19 22:39 Temperature 99.8 F H Pulse Rate 128 H 131 H Respiratory Rate 25 H 18 Blood Pressure 151/86 H Blood Pressure [Left Arm] 127/60 Pulse Oximetry 97 94 Oxygen Delivery Method Room Air Narrative Exam Narrative: GENERAL APPEARANCE: well developed, obese male with a BMI of 40.4 who is drowsy, afebrile, in no acute distress. HEAD: Normocephalic, atraumatic, no scalp lesions. EYES: pupils equal, round, reactive to light and accommodation, sclera non-icteric, extraocular movement intact . EARS: normal external structures, no ear pain NOSE: sinuses non tender to percussion, no rhinorrhea ORAL CAVITY: mucosa moist without lesions or exudate, palate normal, tongue in midline. THROAT: normal, no erythema, no exudate, pharynx normal, uvula midline. NECK/THYROID: neck supple, no jugular venous distention, no carotid bruit, no thyromegaly, trachea midline. LYMPH NODES: no cervical or supraclavicular lymphadenopathy. SKIN: warm and dry, no suspicious lesions, no rashes, good turgor. HEART: Tachycardic with regular rhythm, S1-S2 without murmur, no rubs or gallops, brisk capillary refill, trace pedal edema LUNGS: clear to auscultation bilaterally, no coarseness crackles or wheezing, no cough present CHEST: Symmetrical movement, no accessory muscle use, no pain to AP and lateral compression. ABDOMEN: Soft, no distention, no epigastric or abdominal tenderness on palpation, no guarding or peritoneal signs, no organomegaly, no flank or suprapubic tenderness, active bowel tones. BACK: Normal curvature, nontender to palpation, no CVA tenderness on percussion EXTREMITIES: moves all extremities, strength is 5/5 and symmetrical, well perfused. NEUROLOGIC: AAO x4, no focal neurologic deficits, cranial nerves II-XII grossly intact , motor strength normal upper and lower extremities, no tremors noted, sensory exam intact to light touch, hearing grossly normal to speech. PSYCH: Drowsy, slow response to questions, fair eye contact, flat affect Objective Labs Result Diagrams: 04/07/19 12:22 04/07/19 12:22 Labs: Laboratory Results - last 24 hr 04/07/19 04/07/19 04/07/19 12:22 12:22 12:22 WBC 8.2 RBC 6.24 H Hgb 17.9 H Hct 54.7 H MCV 87.6 MCH 28.7 MCHC 32.8 RDW 14.3 Plt Count 379 Neut % (Auto) 62.9 Lymph % (Auto) 31.6 [place] % (Auto) 4.9 Eos % (Auto) 0.2 L Baso % (Auto) 0.4 Neut # (Auto) 5100 Lymph # (Auto) 2600 [place] # (Auto) 400 Eos # (Auto) 0 Baso # (Auto) 0 Sodium 145 Potassium 4.9 Chloride 102 Carbon Dioxide 23 BUN 13 Creatinine 0.80 Estimated GFR > 60.0 BUN/Creatinine Ratio 16.3 Glucose 76 Calcium 8.6 Magnesium 1.9 Total Bilirubin 1.5 H AST 74 H ALT 38 Alkaline Phosphatase 109 Total Protein 8.8 H Albumin 5.0 Globulin 3.8 Albumin/Globulin Ratio 1.3 Lipase 68 D Urine RBC Urine WBC Ur Squamous Epith Cells Amorphous Sediment Urine Bacteria Hyaline Casts Granular Casts Urine Mucus Ur Culture Indicated? Urine Opiates Screen Ur Oxycodone Screen Urine Methadone Screen Ur Barbiturates Screen U Tricyclic Antidepress Ur Phencyclidine Scrn Ur Amphetamines Screen U Methamphetamines Scrn Ur MDMA Scrn (Ecstasy) U Benzodiazepines Scrn Urine Cocaine Screen U Marijuana (THC) Screen Ethyl Alcohol Cancelled 416 H* 04/07/19 04/07/19 14:15 14:15 WBC RBC Hgb Hct MCV MCH MCHC RDW Plt Count Neut % (Auto) Lymph % (Auto) [place] % (Auto) Eos % (Auto) Baso % (Auto) Neut # (Auto) Lymph # (Auto) [place] # (Auto) Eos # (Auto) Baso # (Auto) Sodium Potassium Chloride Carbon Dioxide BUN Creatinine Estimated GFR BUN/Creatinine Ratio Glucose Calcium Magnesium Total Bilirubin AST ALT Alkaline Phosphatase Total Protein Albumin Globulin Albumin/Globulin Ratio Lipase Urine RBC None seen Urine WBC 0-1/hpf Ur Squamous Epith Cells 0-1 /hpf Amorphous Sediment 1+ Urine Bacteria None seen Hyaline Casts 0-1/lpf Granular Casts 1-5/lpf Urine Mucus 1+ H Ur Culture Indicated? Cult not indicated Urine Opiates Screen Negative Ur Oxycodone Screen Negative Urine Methadone Screen Negative Ur Barbiturates Screen Negative U Tricyclic Antidepress Negative Ur Phencyclidine Scrn Negative Ur Amphetamines Screen Negative U Methamphetamines Scrn Negative Ur MDMA Scrn (Ecstasy) Negative U Benzodiazepines Scrn Negative Urine Cocaine Screen Negative U Marijuana (THC) Screen Negative Ethyl Alcohol Assessment & Plan Assessment & Plan narrative: The patient is admitted to the hospital for management of symptoms related to alcohol withdrawal. 1. Alcohol withdrawal, acute, recurrent -patient seen yesterday for same complaint and returns today with alcohol level of 416 -patient prolonged stay in the ER for detox and now requesting treatment. -multiple doses of Ativan in the emergency department, no anxiety or tremors noted on exam -CIWA protocol with lorazepam per protocol -seizure precautions 2. Elevated blood pressure without diagnosis of hypertension, present on admission unknown if acute or chronic -blood pressures have been minimally elevated, will monitor blood pressures 3. Elevated bilirubin, present on admission -believed to be related to chronic alcoholism 6 years in duration -elevated AST at 74 ALT 33, lipase is normal at 68 -will monitor liver functions The patient is admitted to the hospital due to severity of symptoms and request for treatment for acute withdrawal. Expected length of stay be greater than 2 midnights. Quality VTE Deep Vein Thrombosis/Pulmonary Embolism Present on Admission: No
[2019-04-08] MEDS: LORazepam 2 MG/ML SYRINGE IV ×2 (02:42→09:04)
[2019-04-08] MEDS: SODIUM CHLORIDE 0.45% 1,000 ML 100 ML IV (04:54)
[2019-04-08] MEDS: PANTOPRAZOLE 20 MG TABLET PO (06:52)
[2019-04-08 06:54] VITALS: BP 137/77; PULSE 99; RESP 20; TEMP 36.7; O2SAT 93
[2019-04-08 07:56] LABS: Alanine Aminotransferase 30 IU/L (21-72); Albumin 3.9 g/dL (3.5-5.0); Albumin Globulin Ratio 1.3 (1.0-2.8); Alkaline Phosphatase 84 U/L (38-126); Aspartate Aminotransferase 60 IU/L (17-59); Bilirubin Total 2.2 mg/dL (0.2-1.3); Blood Urea Nitrogen 14 mg/dL (9-20); Calcium 8.6 mg/dL (8.4-10.2); Carbon Dioxide 22 mmol/L (22-32); Chloride 103 mmol/L (98-107); Estimated Glomerular Filt Rate > 60.0 mL/min (>60); Globulin 2.9 g/dL (1.7-4.1); Glucose 90 mg/dL (70-100); HEMOLYSIS 25 (0-50); Potassium 3.9 mmol/L (3.4-5.1); Sodium 138 mmol/L (137-145); Total Protein 6.8 g/dL (6.3-8.2)
[2019-04-08 08:30] VITALS: BP 154/71; PULSE 114; RESP 20; TEMP 36.7; O2SAT 96
[2019-04-08] MEDS: ENOXAPARIN 40 MG/0.4 ML SYRINGE SUBCUT (08:54)
[2019-04-08 10:34] VITALS: O2SAT 97
--- NOTE | 2019-04-08 11:43 | PC.NURSE ---
Addendum entered by Adam Lugo R.N. 04/08/19 14:00: Pt readied for d/c. Cab called. Instructions given. IV d/c'd intact. Pt states understanding of d/c instructions. Original Note: Pt alert, asking appropriately for needs. ciwa 11 and given ativan IV per orders. Pt up to BR. Assisted with phone calls. Pt states wether it is ok to go AMA. Discussed Pt's reasoning for need to go AMA. Pt stated he needed to be somewhere as they are spreading his Dad's ashes today. Dr Villarreal notified. Pt aware knows and will be speaking with him. Pt restfull at present.
--- NOTE | 2019-04-08 12:08 | P.DS_ITS ---
History of Present Illness Chief complaint: ETOH, poorly responsive, airway intact Narrative: This is a 29-year-old male patient with history of alcohol abuse, kidney stones and anxiety who presents today for alcohol withdrawal symptoms. Patient was seen in the emergency room yesterday for the same complaint at which time the patient requests to be discharged. The patient returns today obtained with a blood alcohol of 416. The patient has remained in the ER for protracted stay with worsening withdrawal symptoms. He reports his last drink was yesterday evening. He admits to drinking for 6 years approximately 1/5 of vodka daily The patient has associated complaints of tremulousness, shaking and anxiety. He states that this juncture that he would like to have detox. He reports no recent illness, no fevers or chills, headaches or dizziness, nasal congestion or sore throat. Reports no chest pain or palpitations, shortness of breath cough or wheezing. He does complain of abdominal pain secondary to vomiting but reports no constipation or diarrhea. Reports no urinary difficulties. He reports no joint or extremity pains or problems. Patient presented to the ER at 11:35 a.m. today and was afebrile with temperature 97.1?, heart rate 101, blood pressure 142/66, respirations of 18 with oxygen saturation of 88% on room air which on re-evaluation 20 minutes later was 97-99% on room air. On CBC has a normal white count 20.2 and elevated hemoglobin of 17.9 hematocrit of 54.7 with platelets of 379. His chemistries are unremarkable with lipase of 68 however he does have an elevated bilirubin at 1.5, AST of 74 ALT of 33 alk-phos of 109. His urinalysis screening was unremarkable. The patient is admitted for acute alcohol withdrawal Discharge Providers Date of admission: 04/07/19 22:13 Discharge Date: 04/08/19 Consults: 04/07/19 22:37 Consult to Dietitian, Adult Routine Comment: Reason For Exam: Obesity, alcohol abuse, gastritis Consult to Discharge Planning Routine Comment: Recurrent ER visits for alcohol 04/07/19 22:38 Consult to Business Writer Routine Comment: Discharge provider: Long Villarreal MD Summary Discharge Diagnosis: 1. Acute alcohol intoxication 2. Acute alcohol withdrawal 3. Alcohol dependency Hospital Course: Patient initially presented to the ER on [place] with blood alcohol level over 400. Then after prolonged time in the ER he started going into withdrawal. He was admitted overnight for the withdrawal. This morning he seems to be stable with controlled withdrawal symptoms. However he seeks to be discharged as he states he has plans to spread his dad's ashes on [address]. He is already planning to initiate outpatient alcohol rehab at [facility] (sp ?) which is a new alcohol treatment facility here locally. Patient is advised not to abruptly discontinue his alcohol use as he will likely going to alcohol withdrawal. He is advised to cut alcohol intake may be by 50% to keep withdrawal symptoms under control. I hesitate to give him benzodiazepine prescription as he will likely also continue drinking and may end up again unconscious. At this time, he is well oriented and not tremulous and stable for discharge to his own recognizance. Status at Discharge Cognitive/behavioral status at discharge: oriented Functional status at discharge: independent ambulation Overall status at discharge: patient is back to baseline Time Spent with Patient Less than 30 minutes Exam Vital Signs (past 8 hours): - 04/08/19 06:54 04/08/19 08:30 04/08/19 10:34 Temperature 98.1 F 98.1 F Pulse Rate 99 H 114 H Respiratory Rate 20 20 Blood Pressure 137/77 154/71 H Pulse Oximetry 93 96 9 L Oxygen Delivery Method Room Air Oxygen Flow Rate 0 Objective Labs Result Diagrams: 04/07/19 12:22 04/07/19 12:22 Labs: Laboratory Results - last 24 hr 04/07/19 04/07/19 04/07/19 05:56 12:22 12:22 WBC 8.2 RBC 6.24 H Hgb 17.9 H Hct 54.7 H MCV 87.6 MCH 28.7 MCHC 32.8 RDW 14.3 Plt Count 379 Neut % (Auto) 62.9 Lymph % (Auto) 31.6 [place] % (Auto) 4.9 Eos % (Auto) 0.2 L Baso % (Auto) 0.4 Neut # (Auto) 5100 Lymph # (Auto) 2600 [place] # (Auto) 400 Eos # (Auto) 0 Baso # (Auto) 0 Sodium 138 Potassium 3.9 Chloride 103 Carbon Dioxide 22 BUN 14 Creatinine 0.70 Estimated GFR > 60.0 BUN/Creatinine Ratio 20.0 Glucose 90 Calcium 8.6 Magnesium Total Bilirubin 2.2 H AST 60 H ALT 30 Alkaline Phosphatase 84 Total Protein 6.8 Albumin 3.9 Globulin 2.9 Albumin/Globulin Ratio 1.3 Lipase Urine RBC Urine WBC Ur Squamous Epith Cells Amorphous Sediment Urine Bacteria Hyaline Casts Granular Casts Urine Mucus Ur Culture Indicated? Urine Opiates Screen Ur Oxycodone Screen Urine Methadone Screen Ur Barbiturates Screen U Tricyclic Antidepress Ur Phencyclidine Scrn Ur Amphetamines Screen U Methamphetamines Scrn Ur MDMA Scrn (Ecstasy) U Benzodiazepines Scrn Urine Cocaine Screen U Marijuana (THC) Screen Ethyl Alcohol Cancelled 04/07/19 04/07/19 04/07/19 12:22 14:15 14:15 WBC RBC Hgb Hct MCV MCH MCHC RDW Plt Count Neut % (Auto) Lymph % (Auto) [place] % (Auto) Eos % (Auto) Baso % (Auto) Neut # (Auto) Lymph # (Auto) [place] # (Auto) Eos # (Auto) Baso # (Auto) Sodium 145 Potassium 4.9 Chloride 102 Carbon Dioxide 23 BUN 13 Creatinine 0.80 Estimated GFR > 60.0 BUN/Creatinine Ratio 16.3 Glucose 76 Calcium 8.6 Magnesium 1.9 Total Bilirubin 1.5 H AST 74 H ALT 38 Alkaline Phosphatase 109 Total Protein 8.8 H Albumin 5.0 Globulin 3.8 Albumin/Globulin Ratio 1.3 Lipase 68 D Urine RBC None seen Urine WBC 0-1/hpf Ur Squamous Epith Cells 0-1 /hpf Amorphous Sediment 1+ Urine Bacteria None seen Hyaline Casts 0-1/lpf Granular Casts 1-5/lpf Urine Mucus 1+ H Ur Culture Indicated? Cult not indicated Urine Opiates Screen Negative Ur Oxycodone Screen Negative Urine Methadone Screen Negative Ur Barbiturates Screen Negative U Tricyclic Antidepress Negative Ur Phencyclidine Scrn Negative Ur Amphetamines Screen Negative U Methamphetamines Scrn Negative Ur MDMA Scrn (Ecstasy) Negative U Benzodiazepines Scrn Negative Urine Cocaine Screen Negative U Marijuana (THC) Screen Negative Ethyl Alcohol 416 H* Discharge Plan Discharge Plan Patient Disposition: Home Provider Discharge Instructions Diet: Diet as Tolerated Discharge Data Attending Provider: Piero Langston Admit Date/Time: 04/07/19 22:13 Quality VTE Deep Vein Thrombosis/Pulmonary Embolism Present on Admission: No
--- NOTE | 2019-04-08 16:36 | CM.DANOTE ---
DCP/Assessment: Reviewed chart. Patient is a 29yr old male admitted to [facility] with respiratory distress. No current PCP listed. Primary payor is 1)[email or web address] 2)Medicaid. Met with patient explained CM/SW role. Patient reports that he has been staying at [facility] in [place]. Prior to that he was living with his girlfriend/Simin. Patient currently trying to stop drinking and is enrolled in intensive outpatient program at [facility]. Patient not currently employed. Patient reports that he has all needed community resources but does request that CM team assist with transportation. VIRTUALIZATION ARCHITECT completed Medicaid transport form and provided to RN and instructed them to call [employer] (medicaid contact on weekends). P: Return to [facility] today. Continue outpatient treatment for alcohol abuse. JASVIR Dubose Discharge Planning/Care Management CM Discharge Assessment Start: 04/08/19 16:33 Freq: Status: Active Protocol: Document 04/08/19 16:33 KJS (Rec: 04/08/19 16:36 KJS [id number]) Discharge Planning Assessment Assigned Medical Art Therapist JASVIR Dubose Contact Information Simin Flowers (girlfriend) Advance Directives? Yes History Provided By Patient Medical Record Prior Living Arrangements Apartment/Condo Household Members friend(s) Type of transporation used prior to Drives own vehicle admit Independent with ADL's Yes Is patient alert and oriented? Yes Caregiver for Another No Comment Patient enrolled in outpatient alcohol program at [facility] . Barriers to Discharge No Discharge Plan Home Transportation Arrangement Medicaid taxi Referrals Initiated None needed Review Status In Process Next Review Type Continued Stay Review ED Crisis Response Assessment Start: 04/07/19 17:51 Freq: Status: Discharge Protocol: Document 04/07/19 17:53 DPL (Rec: 04/07/19 18:08 DPL [id number]) ED Crisis Response Assessment VIRTUALIZATION ARCHITECT Assessment Type Substance Abuse Reason for VIRTUALIZATION ARCHITECT Referral Assess for substance abuse detox/treatment placement. Referred by ED Provider Presenting Problem Pt brought in by EMS, minimally responsive, after alcohol overdose. Pt was just discharged yesterday from ED to a substance abuse treatment facility, however he never showed up. This is patient's 6th ED visit for alcohol overdose and related complaints. He acknowledges wanting treatment, however he has expressed that each time he has presented to the ED. Mental health diagnosis No mental health diagnosis noted in chart history. Pt is taking buspirone and clonazapam for ongoing alcohol withdrawl symptoms. [facility]/CMS check Yes Suicidal thoughts No Current Suicidal thoughts No Prior Suicide attempts No Current plan for self harm No Access to guns and weapons No Thoughts of harm to others No Past thoughts of harm to others No Current thoughts of harming others No Prior attempts to harm others No Current plan to harm others No Current Risk factors Substance abuse Risk factor comments Pt has a long history of substance abuse that has become progressively worse. He has presented to the ED frequently for detox and acute alcohol withdrawl symptoms. Relevant Medical History Alcohol abuse, kidney stones. Crisis Plan VIRTUALIZATION ARCHITECT called [facility] and requested [facility] dispatch for substance abuse [facility] Action taken Transfer higher level Transferred INPT Additional Comment Substance abuse inpt/[facility].
--- NOTE | 2019-05-02 12:41 | PC.NURSE ---
Stop time for Sodium Choloride 0.45% 1,000ml is 04/08/19 1300 Stop time for Magnesium sulfate folic acid thiamine multivitamin in sodium chloride 0.9% 1,000ml is 04/08/19 8577
== END 2019-04-08 13:02 | disposition home or self-care (01) ==
LOC: ED 12:23 → AC 22:15
PROVIDERS: Admitting Provider Nurse Practitioner Adult Health; Emergency Provider Internal Medicine; Visit Provider Nurse Practitioner Adult Health
DX: F10.239 Alcohol dependence with withdrawal, unspecified (principal); R40.2352 Coma scale, best motor response, localizes pain, at arrival to emergency department; R40.2122 Coma scale, eyes open, to pain, at arrival to emergency department; R40.2222 Coma scale, best verbal response, incomprehensible words, at arrival to emergency department; R40.0 Somnolence; Y90.8 Blood alcohol level of 240 mg/100 ml or more; E66.9 Obesity, unspecified; Z68.41 Body mass index [BMI] 40.0-44.9, adult; R03.0 Elevated blood-pressure reading, without diagnosis of hypertension; R82.2 Biliuria
CPT/HCPCS: 36591; 70450; 72125; 76705; 80053; 80305; 80320; 81003; 81015; 83690; 83735; 85025; 93005; 93010; 94640; 94762; 96361; 96372; 96374; 96375; 96376; 99285; G0378; C9113; J1650; J1885; J2060; J3475; J7050; J7613

== ENCOUNTER 2019-04-10 12:06 | Inpatient (IN) | payer OTHER, MEDICAID, SELFPAY ==
[2019-04-07 22:35] VITALS: BMI 40.6
[2019-04-10] VITALS (28 sets, daily range): BP systolic 119–150; BP diastolic 53–108; PULSE 86–106; RESP 11–22; TEMP 36.7; O2SAT 89–99
[2019-04-10 12:41] LABS: Add Manual Diff / Slide Review NO; Basophils Absolute Auto 100 /uL (0-100); Basophils Percent Auto 0.7 % (0-2); Eosinophils Absolute Auto 100 /uL (0-450); Eosinophils Percent Auto 0.6 % (2-4); Hematocrit 51.6 % (41-53); Hemoglobin 17.5 g/dL (13.5-17.5); Lymphocytes Absolute Auto 3500 /uL (1100-4500); Lymphocytes Percent Auto 39.8 % (25-40); Mean Corpuscular HGB Conc 33.9 % (30-36); Mean Corpuscular Hemoglobin 29.2 PG (26-34); Monocytes Absolute Auto 400 /uL (0-900); Monocytes Percent Auto 4.7 % (3-14); Neutrophils Absolute Auto 4800 /uL (1500-7000); Neutrophils Percent Auto 54.2 % (50-75); Platelet Count 289 X10^3/uL (150-400); Red Cell Distribution Width 14.5 % (11.6-14.8); White Blood Cell Count 8.8 X10^3/uL (4.5-11.0)
[2019-04-10] MEDS: SODIUM CHLORIDE 0.9% 1,000 ML 1000 ML IV (12:46)
[2019-04-10] MEDS: ONDANSETRON 4 MG/2 ML INJ IV (12:46)
[2019-04-10 13:08] LABS: Urine Amphetamines Negative (Negative); Urine Barbiturates Negative (Negative); Urine Benzodiazepines Positive (Negative); Urine Cocaine Negative (Negative); Urine MDMA Negative (Negative); Urine Methadone Negative (Negative); Urine Methamphetamines Negative (Negative); Urine Morphine/Opi cutoff 2000 Negative (Negative); Urine Oxycodone Negative (Negative); Urine Phencyclidine Negative (Negative); Urine Tetrahydrocannabinol Negative (Negative); Urine Tricyclic Antidepressant Negative (Negative)
[2019-04-10 13:21] LABS: Acetaminophen < 10 ug/mL (10-30); Alanine Aminotransferase 55 IU/L (21-72); Albumin 4.5 g/dL (3.5-5.0); Albumin Globulin Ratio 1.4 (1.0-2.8); Alkaline Phosphatase 88 U/L (38-126); Aspartate Aminotransferase 86 IU/L (17-59); BUN Creatinine Ratio 21.7 (6-22); Bilirubin Total 0.8 mg/dL (0.2-1.3); Blood Urea Nitrogen 13 mg/dL (9-20); Calcium 8.6 mg/dL (8.4-10.2); Carbon Dioxide 33 mmol/L (22-32); Chloride 103 mmol/L (98-107); Estimated Glomerular Filt Rate > 60.0 mL/min (>60); Globulin 3.3 g/dL (1.7-4.1); Glucose 109 mg/dL (70-100); Salicylate < 1.0 mg/dL (<20); Sodium 148 mmol/L (137-145); Total Protein 7.8 g/dL (6.3-8.2)
[2019-04-10 13:26] LABS: HEMOLYSIS 15 (0-50)
[2019-04-10 13:31] LABS: Ethanol (ETOH) 400 mg/dL
--- NOTE | 2019-04-10 13:32 | PC.NURSE ---
Pt admitted to ED unresponsive to general stim but will squeeze hand if asked. Opens eyes w/o verbalization. Airway patent but positional upon admission w/ rising CO2 (54). Provider aware. Improved over the next hour to be able to maintain his own airway w/ improving CO2s.
--- NOTE | 2019-04-10 15:53 | ED.OVERDOSE ---
HPI - Overdose <Salvatore Calvin DO - Last Filed: 04/11/19 08:13> General Chief Complaint: Unresponsive Stated Complaint: etoh/ airway concern Time Seen by Provider: 04/10/19 12:10 Source: patient and EMS Mode of arrival: EMS Limitations: altered mental status History of Present Illness HPI Narrative: 29M smoker with chronic heavy alcohol abuse returns for another unresponsive episode. Today the patient was [place] the [place] he lives and was hardly breathing, covered in vomit and his own urine and stool. EMS was activated and found a nearly empty 0.5 gal of vodka at his side. He has been here multiple times for significant alcohol abuse. He was nearly intubated in the field today but maintain his airway just enough. There is no obvious injury or other drug paraphernalia complaint: accidental overdose Onset (ago): hour(s) Intent: unknown How Overdose Was Discovered: other Context: Intentional Overdose: drug/ETOH problems Treatments Prior to Arrival: oxygen Related Data Home Medications Medication Instructions Recorded Confirmed Unobtainable 04/10/19 04/10/19 Allergies Allergy/AdvReac Type Severity Reaction Status Date / Time tramadol Allergy Rash Verified 04/06/19 16:14 Review of Systems <Salvatore Calvin DO - Last Filed: 04/11/19 08:13> Review of Systems ROS Unobtainable: Unobtainable due to mental status/LOC Constitutional Denies chills, Denies fever(s), Denies lethargy and Denies weakness Eyes Denies change in vision, Denies eye discharge, Denies irritation and Denies loss of vision ENT Ears, Nose, Mouth, and Throat: Denies change in voice, Denies neck pain and Denies sore throat Cardiovascular Denies chest pain, Denies irregular heart rhythm, Denies lightheadedness, Denies palpitations, Denies dyspnea, Denies dyspnea on exertion and Denies orthopnea Respiratory Denies cough, Denies dyspnea, Denies dyspnea on exertion and Denies wheezing Gastrointestinal Gastrointestinal: Denies abdominal pain, Denies change in bowel habits, Denies diarrhea, Denies nausea and Denies vomiting Genitourinary Denies hematuria, Denies flank pain, Denies urinary incontinence and Denies urinary urgency Musculoskeletal Denies neck pain Integumentary/Breasts Denies pruritus, Denies erythema, Denies rash and Denies wounds Neurologic Denies confusion, Denies loss of vision and Denies weakness Psychiatric Denies anxiety, Denies confusion, Denies depression, Denies homicidal ideation and Denies suicidal ideation Endocrine Denies palpitations Hematologic/Lymphatic Denies easy bruising Allergic/Immunologic Denies wheezing PFSH <Salvatore Calvin DO - Last Filed: 04/11/19 08:13> Medical History Alcohol abuse (Acute) Kidney stones (Acute) Surgical History No pertinent past surgical history (Acute) Family History (Updated 04/11/19 @ 01:18 by AURELIANO Maravilla) Mother No problems noted. Father Lung cancer Social History household members: friend(s) Smoking Status: Never smoker alcohol intake: current substance use type: other Family History Mother No problems noted. Father Lung cancer Social History household members: friend(s) Smoking Status: Never smoker alcohol intake: current substance use type: other Exam <Salvatore Calvin DO - Last Filed: 04/11/19 08:13> Narrative Exam Narrative: GENERAL: 29-year-old male in significant distress, covered in vomit, feces and urine. He does respond to verbal commands and is able to open his eyes, make eye contact with me, stick his tongue out and squeeze my fingers. He is guarding his airway HEAD: Atraumatic. Normocephalic. No temporal or scalp tenderness. EYES: Pupils equal round and reactive. Extraocular motions intact. No scleral icterus. No injection or drainage. ENT: Nose without bleeding, purulent drainage or septal hematoma. Throat without erythema, tonsillar hypertrophy or exudate. Uvula midline. Airway patent. NECK: Trachea midline. No JVD or lymphadenopathy. Supple, nontender, no meningeal signs. CARDIOVASCULAR: Regular rate and rhythm without murmurs, gallops, or rubs. RESPIRATORY: Clear to auscultation. Breath sounds equal bilaterally. No wheezes, rales, or rhonchi. GASTROINTESTINAL: Abdomen soft, non-tender, nondistended. No hepato-splenomegaly, or palpable masses. No guarding. EXTREMITIES: No clubbing, cyanosis, or edema. No joint tenderness, effusion, or edema noted. BACK: Nontender without deformity or crepitance. No flank tenderness. NEURO: Alert but obtunded SKIN: No rash or erythema. Initial Vital Signs Initial Vital Signs: Vital Signs Pulse Rate 89 04/10/19 12:10 Respiratory Rate 11 L 04/10/19 12:10 Blood Pressure 150/99 H 04/10/19 12:10 Pulse Oximetry 89 L 04/10/19 12:10 <Robby Gutierrez MD - Last Filed: 04/11/19 01:29> Initial Vital Signs Initial Vital Signs: Vital Signs Pulse Rate 89 04/10/19 12:10 Respiratory Rate 11 L 04/10/19 12:10 Blood Pressure 150/99 H 04/10/19 12:10 Pulse Oximetry 89 L 04/10/19 12:10 Course <Salvatore Calvin DO - Last Filed: 04/11/19 08:13> Course Narrative: Patient has now been observed for greater than 6 hours, blood alcohol down to the 200s. Patient awake, alert and oriented, speaking clearly. In fact even beginning to get a bit shaky and Ativan helps aylin his symptoms. The DC are has been dispatched as this patient clearly is a significant risk to himself and will need to be detained to rehab. Patient signed out to night provider for disposition, and will coordinate with DCR. Medical clearance signed and faxed a few hours ago. Orders Ordered: ED Orders 04/11/19 00:21 Education, smoking cessation ONGOING 04/11/19 01:56 Consult to Field Research Assistant Routine 04/11/19 05:04 Complete Blood Count MAN DIFF Routine Comprehensive Metabolic Panel Routine Acetaminophen (Tylenol) 650 mg PO Q6HR PRN PRN Reason: As Needed for Fever/Mild Pain Chlordiazepoxide HCl (Librium) 50 mg PO BEDTIME NATHAN Clonidine HCl (Catapres) 0.1 mg PO Q4HR PRN PRN Reason: Alcohol Withdrawal Folic Acid (Folic Acid) 1 mg PO DAILY NATHAN Sodium Chloride (Normal Saline 0.9%) 1,000 mls @ 100 mls/hr IV CONT NATHAN Last Admin: 05/14/19 03:24 Dose: 100 mls/hr Lorazepam (Ativan) 1 mg PO Q2HR PRN PRN Reason: Anxiety Lorazepam (Ativan) 1 mg IV Q2HR PRN PRN Reason: Anxiety Last Admin: 04/11/19 06:50 Dose: 1 mg Multivitamins (Tab-A-Adwoa) 1 tab PO DAILY [facility] Ondansetron HCl (Zofran) 4 mg IV Q4HR PRN PRN Reason: Nausea And Vomiting Last Admin: 04/10/19 12:46 Dose: 4 mg Ondansetron HCl (Zofran) 4 mg IV Q6HR PRN PRN Reason: Nausea And Vomiting Thiamine HCl (Vitamin B-1) 100 mg PO DAILY [facility] Stop: 04/14/19 09:01 Discontinued Medications Chlordiazepoxide HCl (Librium) 50 mg PO NOW ONE Stop: 04/11/19 03:17 Last Admin: 04/11/19 03:38 Dose: 50 mg Enoxaparin Sodium (Lovenox) 40 mg SUBCUT DAILY [facility] Sodium Chloride (Normal Saline 0.9%) 1,000 mls @ 1,000 mls/hr IV BOLUS ONE Stop: 04/10/19 13:09 Last Infusion: 04/10/19 14:15 Dose: 0 mls/hr Admin: 04/10/19 12:46 Dose: 1,000 mls/hr Sodium Chloride (Normal Saline 0.45%) 1,000 mls @ 100 mls/hr IV CONT [facility] Ketorolac Tromethamine (Toradol) 30 mg IV NOW ONE Stop: 04/11/19 02:18 Last Admin: 04/11/19 03:20 Dose: 30 mg Lorazepam (Ativan) 1 mg IV NOW ONE Stop: 04/10/19 16:43 Last Admin: 04/10/19 16:58 Dose: 1 mg Lorazepam (Ativan) 1 mg IV NOW ONE Stop: 04/10/19 18:31 Last Admin: 04/10/19 18:57 Dose: 1 mg Lorazepam (Ativan) 1 mg IV NOW ONE Stop: 04/10/19 21:23 Last Admin: 04/10/19 21:25 Dose: 1 mg Lorazepam (Ativan) 1 mg PO NOW ONE Stop: 04/11/19 00:11 Last Admin: 04/11/19 00:20 Dose: 1 mg Lorazepam (Ativan) 2 mg PO Q8HR NATHAN; Protocol Ondansetron HCl (Zofran) 4 mg IV Q8HR PRN PRN Reason: Nausea And Vomiting Pantoprazole Sodium (Protonix) 40 mg IV NOW ONE Stop: 04/11/19 02:17 Last Admin: 04/11/19 03:20 Dose: 40 mg Vital Signs - 8 hr 04/11/19 01:14 04/11/19 01:35 04/11/19 05:00 Temperature 99.9 F H 98.8 F 98.8 F Pulse Rate 99 H 100 H 106 H Respiratory Rate 18 18 18 Blood Pressure 141/73 H 148/85 H 153/89 H Pulse Oximetry 98 94 95 <Robby Gutierrez MD - Last Filed: 04/11/19 01:29> Orders Ordered: ED Orders 04/11/19 00:21 Education, smoking cessation ONGOING 04/11/19 01:56 Consult to Field Research Assistant Routine 04/11/19 05:04 Complete Blood Count MAN DIFF Routine Comprehensive Metabolic Panel Routine Acetaminophen (Tylenol) 650 mg PO Q6HR PRN PRN Reason: As Needed for Fever/Mild Pain Chlordiazepoxide HCl (Librium) 50 mg PO BEDTIME NATHAN Clonidine HCl (Catapres) 0.1 mg PO Q4HR PRN PRN Reason: Alcohol Withdrawal Folic Acid (Folic Acid) 1 mg PO DAILY [facility] Sodium Chloride (Normal Saline 0.9%) 1,000 mls @ 100 mls/hr IV CONT NATHAN Last Admin: 04/11/19 03:24 Dose: 100 mls/hr Lorazepam (Ativan) 1 mg PO Q2HR PRN PRN Reason: Anxiety Lorazepam (Ativan) 1 mg IV Q2HR PRN PRN Reason: Anxiety Last Admin: 04/11/19 06:50 Dose: 1 mg Multivitamins (Tab-A-Adwoa) 1 tab PO DAILY [facility] Ondansetron HCl (Zofran) 4 mg IV Q4HR PRN PRN Reason: Nausea And Vomiting Last Admin: 04/10/19 12:46 Dose: 4 mg Ondansetron HCl (Zofran) 4 mg IV Q6HR PRN PRN Reason: Nausea And Vomiting Thiamine HCl (Vitamin B-1) 100 mg PO DAILY [facility] Stop: 04/14/19 09:01 Discontinued Medications Chlordiazepoxide HCl (Librium) 50 mg PO NOW ONE Stop: 04/11/19 03:17 Last Admin: 04/11/19 03:38 Dose: 50 mg Enoxaparin Sodium (Lovenox) 40 mg SUBCUT DAILY [facility] Sodium Chloride (Normal Saline 0.9%) 1,000 mls @ 1,000 mls/hr IV BOLUS ONE Stop: 04/10/19 13:09 Last Infusion: 04/10/19 14:15 Dose: 0 mls/hr Admin: 04/10/19 12:46 Dose: 1,000 mls/hr Sodium Chloride (Normal Saline 0.45%) 1,000 mls @ 100 mls/hr IV CONT NATHAN Ketorolac Tromethamine (Toradol) 30 mg IV NOW ONE Stop: 04/11/19 02:18 Last Admin: 04/11/19 03:20 Dose: 30 mg Lorazepam (Ativan) 1 mg IV NOW ONE Stop: 04/10/19 16:43 Last Admin: 04/10/19 16:58 Dose: 1 mg Lorazepam (Ativan) 1 mg IV NOW ONE Stop: 04/10/19 18:31 Last Admin: 04/10/19 18:57 Dose: 1 mg Lorazepam (Ativan) 1 mg IV NOW ONE Stop: 04/10/19 21:23 Last Admin: 04/10/19 21:25 Dose: 1 mg Lorazepam (Ativan) 1 mg PO NOW ONE Stop: 04/11/19 00:11 Last Admin: 04/11/19 00:20 Dose: 1 mg Lorazepam (Ativan) 2 mg PO Q8HR [facility]; Protocol Ondansetron HCl (Zofran) 4 mg IV Q8HR PRN PRN Reason: Nausea And Vomiting Pantoprazole Sodium (Protonix) 40 mg IV NOW ONE Stop: 04/11/19 02:17 Last Admin: 04/11/19 03:20 Dose: 40 mg Vital Signs - 8 hr 04/11/19 01:14 04/11/19 01:35 04/11/19 05:00 Temperature 99.9 F H 98.8 F 98.8 F Pulse Rate 99 H 100 H 106 H Respiratory Rate 18 18 18 Blood Pressure 141/73 H 148/85 H 153/89 H Pulse Oximetry 98 94 95 MDM - Overdose <Salvatore Jeffrey, DO - Last Filed: 04/11/19 08:13> Lab Data Result diagrams: 04/11/19 05:04 04/11/19 05:04 Lab Results 04/10/19 04/10/19 04/10/19 Range/Units 12:25 12:55 13:00 WBC 8.8 (4.5-11.0) X10^3/uL RBC 6.00 H (4.5-5.9) X10^6/uL Hgb 17.5 (13.5-17.5) g/dL Hct 51.6 (41-53) % MCV 86.0 (80-100) fL MCH 29.2 (26-34) PG MCHC 33.9 (30-36) % RDW 14.5 (11.6-14.8) % Plt Count 289 (150-400) X10^3/uL Neut % (Auto) 54.2 (50-75) % Lymph % (Auto) 39.8 (25-40) % [place] % (Auto) 4.7 (3-14) % Eos % (Auto) 0.6 L (2-4) % Baso % (Auto) 0.7 (0-2) % Neut # (Auto) 4800 (7093-2955) /uL Lymph # (Auto) 3500 (6303-3334) /uL [place] # (Auto) 400 (0-900) /uL Eos # (Auto) 100 (0-450) /uL Baso # (Auto) 100 (0-100) /uL Total Counted Seg Neutrophils % (38-70) % Band Neutrophils % (3-7) % Lymphocytes % (Manual) (25-45) % Atypical Lymphs % ( - 0) % Monocytes % (Manual) (2-11) % Eosinophils % (Manual) (2-4) % Basophils % (Manual) (0-1) % Neutrophils # (Manual) (7456-9603) /uL RBC Morphology Sodium 148 H (137-145) mmol/L Potassium 4.0 (3.4-5.1) mmol/L Chloride 103 (98-107) mmol/L Carbon Dioxide 33 H (22-32) mmol/L BUN 13 (9-20) mg/dL Creatinine 0.60 L (0.66-1.25) mg/dL Estimated GFR > 60.0 (>60) mL/min BUN/Creatinine Ratio 21.7 (6-22) Glucose 109 H (70-100) mg/dL Calcium 8.6 (8.4-10.2) mg/dL Total Bilirubin 0.8 (0.2-1.3) mg/dL AST 86 H (17-59) IU/L ALT 55 (21-72) IU/L Alkaline Phosphatase 88 (38-126) U/L Total Protein 7.8 (6.3-8.2) g/dL Albumin 4.5 (3.5-5.0) g/dL Globulin 3.3 (1.7-4.1) g/dL Albumin/Globulin Ratio 1.4 (1.0-2.8) Salicylates < 1.0 (<20) mg/dL Urine Opiates Screen Negative (Negative) Ur Oxycodone Screen Negative (Negative) Urine Methadone Screen Negative (Negative) Acetaminophen < 10 L (10-30) ug/mL Ur Barbiturates Screen Negative (Negative) U Tricyclic Antidepress Negative (Negative) Ur Phencyclidine Scrn Negative (Negative) Ur Amphetamines Screen Negative (Negative) U Methamphetamines Scrn Negative (Negative) Ur MDMA Scrn (Ecstasy) Negative (Negative) U Benzodiazepines Scrn Positive H (Negative) Urine Cocaine Screen Negative (Negative) U Marijuana (THC) Screen Negative (Negative) Ethyl Alcohol 400 H* mg/dL 04/10/19 04/11/19 04/11/19 Range/Units 17:30 05:04 05:04 WBC 8.5 (4.5-11.0) X10^3/uL RBC 5.08 (4.5-5.9) X10^6/uL Hgb 14.9 (13.5-17.5) g/dL Hct 43.5 (41-53) % MCV 85.7 (80-100) fL MCH 29.3 (26-34) PG MCHC 34.2 (30-36) % RDW 14.4 (11.6-14.8) % Plt Count 235 (150-400) X10^3/uL Neut % (Auto) (50-75) % Lymph % (Auto) (25-40) % [place] % (Auto) (3-14) % Eos % (Auto) (2-4) % Baso % (Auto) (0-2) % Neut # (Auto) (9271-6693) /uL Lymph # (Auto) (4437-6540) /uL [place] # (Auto) (0-900) /uL Eos # (Auto) (0-450) /uL Baso # (Auto) (0-100) /uL Total Counted 100 Seg Neutrophils % 64.0 (38-70) % Band Neutrophils % 1.0 L (3-7) % Lymphocytes % (Manual) 31.0 (25-45) % Atypical Lymphs % 1.0 H ( - 0) % Monocytes % (Manual) 1.0 L (2-11) % Eosinophils % (Manual) 1.0 L (2-4) % Basophils % (Manual) 1.0 (0-1) % Neutrophils # (Manual) 5525 (5792-5275) /uL RBC Morphology Normal morphology Sodium 139 (137-145) mmol/L Potassium 3.4 (3.4-5.1) mmol/L Chloride 98 (98-107) mmol/L Carbon Dioxide 25 (22-32) mmol/L BUN 15 (9-20) mg/dL Creatinine 0.70 (0.66-1.25) mg/dL Estimated GFR > 60.0 (>60) mL/min BUN/Creatinine Ratio 21.4 (6-22) Glucose 82 (70-100) mg/dL Calcium 8.5 (8.4-10.2) mg/dL Total Bilirubin 1.4 H (0.2-1.3) mg/dL AST 72 H (17-59) IU/L ALT 47 (21-72) IU/L Alkaline Phosphatase 78 (38-126) U/L Total Protein 6.9 (6.3-8.2) g/dL Albumin 4.1 (3.5-5.0) g/dL Globulin 2.8 (1.7-4.1) g/dL Albumin/Globulin Ratio 1.5 (1.0-2.8) Salicylates (<20) mg/dL Urine Opiates Screen (Negative) Ur Oxycodone Screen (Negative) Urine Methadone Screen (Negative) Acetaminophen (10-30) ug/mL Ur Barbiturates Screen (Negative) U Tricyclic Antidepress (Negative) Ur Phencyclidine Scrn (Negative) Ur Amphetamines Screen (Negative) U Methamphetamines Scrn (Negative) Ur MDMA Scrn (Ecstasy) (Negative) U Benzodiazepines Scrn (Negative) Urine Cocaine Screen (Negative) U Marijuana (THC) Screen (Negative) Ethyl Alcohol 289 mg/dL <Robby Gutierrez MD - Last Filed: 04/11/19 01:29> Lab Data Lab Results 04/10/19 04/10/19 04/10/19 Range/Units 12:25 12:55 13:00 WBC 8.8 (4.5-11.0) X10^3/uL RBC 6.00 H (4.5-5.9) X10^6/uL Hgb 17.5 (13.5-17.5) g/dL Hct 51.6 (41-53) % MCV 86.0 (80-100) fL MCH 29.2 (26-34) PG MCHC 33.9 (30-36) % RDW 14.5 (11.6-14.8) % Plt Count 289 (150-400) X10^3/uL Neut % (Auto) 54.2 (50-75) % Lymph % (Auto) 39.8 (25-40) % [place] % (Auto) 4.7 (3-14) % Eos % (Auto) 0.6 L (2-4) % Baso % (Auto) 0.7 (0-2) % Neut # (Auto) 4800 (4358-7719) /uL Lymph # (Auto) 3500 (7840-5384) /uL [place] # (Auto) 400 (0-900) /uL Eos # (Auto) 100 (0-450) /uL Baso # (Auto) 100 (0-100) /uL Total Counted Seg Neutrophils % (38-70) % Band Neutrophils % (3-7) % Lymphocytes % (Manual) (25-45) % Atypical Lymphs % ( - 0) % Monocytes % (Manual) (2-11) % Eosinophils % (Manual) (2-4) % Basophils % (Manual) (0-1) % Neutrophils # (Manual) (5172-6878) /uL RBC Morphology Sodium 148 H (137-145) mmol/L Potassium 4.0 (3.4-5.1) mmol/L Chloride 103 (98-107) mmol/L Carbon Dioxide 33 H (22-32) mmol/L BUN 13 (9-20) mg/dL Creatinine 0.60 L (0.66-1.25) mg/dL Estimated GFR > 60.0 (>60) mL/min BUN/Creatinine Ratio 21.7 (6-22) Glucose 109 H (70-100) mg/dL Calcium 8.6 (8.4-10.2) mg/dL Total Bilirubin 0.8 (0.2-1.3) mg/dL AST 86 H (17-59) IU/L ALT 55 (21-72) IU/L Alkaline Phosphatase 88 (38-126) U/L Total Protein 7.8 (6.3-8.2) g/dL Albumin 4.5 (3.5-5.0) g/dL Globulin 3.3 (1.7-4.1) g/dL Albumin/Globulin Ratio 1.4 (1.0-2.8) Salicylates < 1.0 (<20) mg/dL Urine Opiates Screen Negative (Negative) Ur Oxycodone Screen Negative (Negative) Urine Methadone Screen Negative (Negative) Acetaminophen < 10 L (10-30) ug/mL Ur Barbiturates Screen Negative (Negative) U Tricyclic Antidepress Negative (Negative) Ur Phencyclidine Scrn Negative (Negative) Ur Amphetamines Screen Negative (Negative) U Methamphetamines Scrn Negative (Negative) Ur MDMA Scrn (Ecstasy) Negative (Negative) U Benzodiazepines Scrn Positive H (Negative) Urine Cocaine Screen Negative (Negative) U Marijuana (THC) Screen Negative (Negative) Ethyl Alcohol 400 H* mg/dL 04/10/19 04/11/19 04/11/19 Range/Units 17:30 05:04 05:04 WBC 8.5 (4.5-11.0) X10^3/uL RBC 5.08 (4.5-5.9) X10^6/uL Hgb 14.9 (13.5-17.5) g/dL Hct 43.5 (41-53) % MCV 85.7 (80-100) fL MCH 29.3 (26-34) PG MCHC 34.2 (30-36) % RDW 14.4 (11.6-14.8) % Plt Count 235 (150-400) X10^3/uL Neut % (Auto) (50-75) % Lymph % (Auto) (25-40) % [place] % (Auto) (3-14) % Eos % (Auto) (2-4) % Baso % (Auto) (0-2) % Neut # (Auto) (5979-2538) /uL Lymph # (Auto) (3505-0688) /uL [place] # (Auto) (0-900) /uL Eos # (Auto) (0-450) /uL Baso # (Auto) (0-100) /uL Total Counted 100 Seg Neutrophils % 64.0 (38-70) % Band Neutrophils % 1.0 L (3-7) % Lymphocytes % (Manual) 31.0 (25-45) % Atypical Lymphs % 1.0 H ( - 0) % Monocytes % (Manual) 1.0 L (2-11) % Eosinophils % (Manual) 1.0 L (2-4) % Basophils % (Manual) 1.0 (0-1) % Neutrophils # (Manual) 5525 (5288-0214) /uL RBC Morphology Normal morphology Sodium 139 (137-145) mmol/L Potassium 3.4 (3.4-5.1) mmol/L Chloride 98 (98-107) mmol/L Carbon Dioxide 25 (22-32) mmol/L BUN 15 (9-20) mg/dL Creatinine 0.70 (0.66-1.25) mg/dL Estimated GFR > 60.0 (>60) mL/min BUN/Creatinine Ratio 21.4 (6-22) Glucose 82 (70-100) mg/dL Calcium 8.5 (8.4-10.2) mg/dL Total Bilirubin 1.4 H (0.2-1.3) mg/dL AST 72 H (17-59) IU/L ALT 47 (21-72) IU/L Alkaline Phosphatase 78 (38-126) U/L Total Protein 6.9 (6.3-8.2) g/dL Albumin 4.1 (3.5-5.0) g/dL Globulin 2.8 (1.7-4.1) g/dL Albumin/Globulin Ratio 1.5 (1.0-2.8) Salicylates (<20) mg/dL Urine Opiates Screen (Negative) Ur Oxycodone Screen (Negative) Urine Methadone Screen (Negative) Acetaminophen (10-30) ug/mL Ur Barbiturates Screen (Negative) U Tricyclic Antidepress (Negative) Ur Phencyclidine Scrn (Negative) Ur Amphetamines Screen (Negative) U Methamphetamines Scrn (Negative) Ur MDMA Scrn (Ecstasy) (Negative) U Benzodiazepines Scrn (Negative) Urine Cocaine Screen (Negative) U Marijuana (THC) Screen (Negative) Ethyl Alcohol 289 mg/dL MDM Narrative Medical decision making narrative: I assumed care from Dr. Calvin about 7:00 p.m., falling change of shift. After my arrival to the ER the patient is up and alert. He requested Ativan, feeling shaky. DCR evaluated the patient. DCR felt the patient met criteria for retention and hospitalization for detox under [place] law. However no legal to detox spaces are available. The patient would have agreed to a standard detox bed. There are no detox beds available in [facility]. He has asked for more Ativan, stating he would be interested in detox. He has no tachycardia. He has a weakened oriented. He does have a tremor. He has remote history of seizure, none recent. On exam, his vitals are stable, he is alert, oriented, capable decision making. Cardiac exam is normal. Lungs are clear. I discussed the patient with AURELIANO Spencer, the hospitalist working tonight. I recommended observation admission with detox meds. I suggested our social work professor at [facility] may be called to further assist the patient in the morning. The hospitalist agreed, she will care for the patient tonight. Assessment: 1. Alcoholism. 2. Alcoholic withdrawal Plan: Admit to the accepting hospitalist as noted above. Discharge Plan Departure Patient Disposition: Admitted as Observation Clinical Impression: Alcoholic intoxication Qualifiers: Complication of substance-induced condition: uncomplicated Qualified Code(s): F10.920 - Alcohol use, unspecified with intoxication, uncomplicated Alcohol withdrawal Qualifiers: Complication of substance-induced condition: uncomplicated Qualified Code(s): F10.230 - Alcohol dependence with withdrawal, uncomplicated Discharge Date/Time: 04/11/19 01:30 Interventions: ED Discharge Assessment Last Done: 04/11/19 01:14 Admit Date/Time: 04/11/19 00:04 Admit Provider: Ila Spencer
--- NOTE | 2019-04-10 16:06 | CM.SWNOTE ---
DCP/JASVIR note: Received call from JASVIR/Lacie re: d/c plan made on 04-07-19 with [facility]. TRANSITIONS RN CARE COORDINATOR unaware of dispatch or any discussion from floor staff/MD about potential detainment under [place]'s Law? TRANSITIONS RN CARE COORDINATOR did see patient on 04-08-19. Patient alert and oriented at time of visit requesting only ride assistance. Patient reported that he was enrolled outpatient at [facility] and planned to follow up as outpatient. RN updated and no further concerns brought up by staff and or MD. TRANSITIONS RN CARE COORDINATOR placed call to [facility] re: outcome of dispatch. Per [facility] Crisis line there was no documented disposition on this patient. Therefore, not clear from [facility] on whether or not patient was detainable under [place]'s Law on 04-07-19. Per [facility], they will research discharge disposition on their end. They were dispatched and did come to [facility] but unclear on outcome? Notified [facility] that patient discharged back to [facility] on Wednesday04-08-19. JASVIR/Lacie updated. JASVIR Dubose
--- NOTE | 2019-04-10 16:25 | ED_ITS ---
HPI - Overdose <Salvatore Calvin DO - Last Filed: 04/11/19 08:13> General Chief Complaint: Unresponsive Stated Complaint: etoh/ airway concern Time Seen by Provider: 04/10/19 12:10 Source: patient and EMS Mode of arrival: EMS Limitations: altered mental status History of Present Illness HPI Narrative: 29M smoker with chronic heavy alcohol abuse returns for another unresponsive episode. Today the patient was found down at the hotel where he lives and was hardly breathing, covered in vomit and his own urine and stool. EMS was activated and found a nearly empty 0.5 gal of vodka at his side. He has been here multiple times for significant alcohol abuse. He was nearly intubated in the field today but maintain his airway just enough. There is no obvious injury or other drug paraphernalia complaint: accidental overdose Onset (ago): hour(s) Intent: unknown How Overdose Was Discovered: other Context: Intentional Overdose: drug/ETOH problems Treatments Prior to Arrival: oxygen Related Data Home Medications Medication Instructions Recorded Confirmed Unobtainable 04/10/19 04/10/19 Allergies Allergy/AdvReac Type Severity Reaction Status Date / Time tramadol Allergy Rash Verified 04/06/19 16:14 Review of Systems <Salvatore Calvin DO - Last Filed: 04/11/19 08:13> Review of Systems ROS Unobtainable: Unobtainable due to mental status/LOC Constitutional Denies chills, Denies fever(s), Denies lethargy and Denies weakness Eyes Denies change in vision, Denies eye discharge, Denies irritation and Denies loss of vision ENT Ears, Nose, Mouth, and Throat: Denies change in voice, Denies neck pain and Denies sore throat Cardiovascular Denies chest pain, Denies irregular heart rhythm, Denies lightheadedness, Denies palpitations, Denies dyspnea, Denies dyspnea on exertion and Denies orthopnea Respiratory Denies cough, Denies dyspnea, Denies dyspnea on exertion and Denies wheezing Gastrointestinal Gastrointestinal: Denies abdominal pain, Denies change in bowel habits, Denies diarrhea, Denies nausea and Denies vomiting Genitourinary Denies hematuria, Denies flank pain, Denies urinary incontinence and Denies urinary urgency Musculoskeletal Denies neck pain Integumentary/Breasts Denies pruritus, Denies erythema, Denies rash and Denies wounds Neurologic Denies confusion, Denies loss of vision and Denies weakness Psychiatric Denies anxiety, Denies confusion, Denies depression, Denies homicidal ideation and Denies suicidal ideation Endocrine Denies palpitations Hematologic/Lymphatic Denies easy bruising Allergic/Immunologic Denies wheezing PFSH <Salvatore Calvin DO - Last Filed: 04/11/19 08:13> Medical History Alcohol abuse (Acute) Kidney stones (Acute) Surgical History No pertinent past surgical history (Acute) Family History (Updated 04/11/19 @ 01:18 by AURELIANO Maravilla) Mother No problems noted. Father Lung cancer Social History household members: friend(s) Smoking Status: Never smoker alcohol intake: current substance use type: other Family History Mother No problems noted. Father Lung cancer Social History household members: friend(s) Smoking Status: Never smoker alcohol intake: current substance use type: other Exam <Salvatore Calvin DO - Last Filed: 04/11/19 08:13> Narrative Exam Narrative: GENERAL: 29-year-old male in significant distress, covered in vomit, feces and urine. He does respond to verbal commands and is able to open his eyes, make eye contact with me, stick his tongue out and squeeze my fingers. He is guarding his airway HEAD: Atraumatic. Normocephalic. No temporal or scalp tenderness. EYES: Pupils equal round and reactive. Extraocular motions intact. No scleral icterus. No injection or drainage. ENT: Nose without bleeding, purulent drainage or septal hematoma. Throat without erythema, tonsillar hypertrophy or exudate. Uvula midline. Airway patent. NECK: Trachea midline. No JVD or lymphadenopathy. Supple, nontender, no meningeal signs. CARDIOVASCULAR: Regular rate and rhythm without murmurs, gallops, or rubs. RESPIRATORY: Clear to auscultation. Breath sounds equal bilaterally. No wheezes, rales, or rhonchi. GASTROINTESTINAL: Abdomen soft, non-tender, nondistended. No hepato- splenomegaly, or palpable masses. No guarding. EXTREMITIES: No clubbing, cyanosis, or edema. No joint tenderness, effusion, or edema noted. BACK: Nontender without deformity or crepitance. No flank tenderness. NEURO: Alert but obtunded SKIN: No rash or erythema. Initial Vital Signs Initial Vital Signs: Vital Signs Pulse Rate 89 04/10/19 12:10 Respiratory Rate 11 L 04/10/19 12:10 Blood Pressure 150/99 H 04/10/19 12:10 Pulse Oximetry 89 L 04/10/19 12:10 <Robby Gutierrez MD - Last Filed: 04/11/19 01:29> Initial Vital Signs Initial Vital Signs: Vital Signs Pulse Rate 89 04/10/19 12:10 Respiratory Rate 11 L 04/10/19 12:10 Blood Pressure 150/99 H 04/10/19 12:10 Pulse Oximetry 89 L 04/10/19 12:10 Course <Salvatore Calvin DO - Last Filed: 04/11/19 08:13> Course Narrative: Patient has now been observed for greater than 6 hours, blood alcohol down to the 200s. Patient awake, alert and oriented, speaking clearly. In fact even beginning to get a bit shaky and Ativan helps aylin his symptoms. The DC are has been dispatched as this patient clearly is a significant risk to himself and will need to be detained to rehab. Patient signed out to night provider for disposition, and will coordinate with DCR. Medical clearance signed and faxed a few hours ago. Orders Ordered: ED Orders 04/11/19 00:21 Education, smoking cessation ONGOING 04/11/19 01:56 Consult to Blueprint Machine Operator Routine 04/11/19 05:04 Complete Blood Count MAN DIFF Routine Comprehensive Metabolic Panel Routine Acetaminophen (Tylenol) 650 mg PO Q6HR PRN PRN Reason: As Needed for Fever/Mild Pain Chlordiazepoxide HCl (Librium) 50 mg PO BEDTIME NATHAN Clonidine HCl (Catapres) 0.1 mg PO Q4HR PRN PRN Reason: Alcohol Withdrawal Folic Acid (Folic Acid) 1 mg PO DAILY NATHAN Sodium Chloride (Normal Saline 0.9%) 1,000 mls @ 100 mls/hr IV CONT NATHAN Last Admin: 05/14/19 03:24 Dose: 100 mls/hr Lorazepam (Ativan) 1 mg PO Q2HR PRN PRN Reason: Anxiety Lorazepam (Ativan) 1 mg IV Q2HR PRN PRN Reason: Anxiety Last Admin: 04/11/19 06:50 Dose: 1 mg Multivitamins (Tab-A-Adwoa) 1 tab PO DAILY [facility] Ondansetron HCl (Zofran) 4 mg IV Q4HR PRN PRN Reason: Nausea And Vomiting Last Admin: 04/10/19 12:46 Dose: 4 mg Ondansetron HCl (Zofran) 4 mg IV Q6HR PRN PRN Reason: Nausea And Vomiting Thiamine HCl (Vitamin B-1) 100 mg PO DAILY [facility] Stop: 04/14/19 09:01 Discontinued Medications Chlordiazepoxide HCl (Librium) 50 mg PO NOW ONE Stop: 04/11/19 03:17 Last Admin: 04/11/19 03:38 Dose: 50 mg Enoxaparin Sodium (Lovenox) 40 mg SUBCUT DAILY [facility] Sodium Chloride (Normal Saline 0.9%) 1,000 mls @ 1,000 mls/hr IV BOLUS ONE Stop: 04/10/19 13:09 Last Infusion: 04/10/19 14:15 Dose: 0 mls/hr Admin: 04/10/19 12:46 Dose: 1,000 mls/hr Sodium Chloride (Normal Saline 0.45%) 1,000 mls @ 100 mls/hr IV CONT [facility] Ketorolac Tromethamine (Toradol) 30 mg IV NOW ONE Stop: 04/11/19 02:18 Last Admin: 04/11/19 03:20 Dose: 30 mg Lorazepam (Ativan) 1 mg IV NOW ONE Stop: 04/10/19 16:43 Last Admin: 04/10/19 16:58 Dose: 1 mg Lorazepam (Ativan) 1 mg IV NOW ONE Stop: 04/10/19 18:31 Last Admin: 04/10/19 18:57 Dose: 1 mg Lorazepam (Ativan) 1 mg IV NOW ONE Stop: 04/10/19 21:23 Last Admin: 04/10/19 21:25 Dose: 1 mg Lorazepam (Ativan) 1 mg PO NOW ONE Stop: 04/11/19 00:11 Last Admin: 04/11/19 00:20 Dose: 1 mg Lorazepam (Ativan) 2 mg PO Q8HR NATHAN; Protocol Ondansetron HCl (Zofran) 4 mg IV Q8HR PRN PRN Reason: Nausea And Vomiting Pantoprazole Sodium (Protonix) 40 mg IV NOW ONE Stop: 04/11/19 02:17 Last Admin: 04/11/19 03:20 Dose: 40 mg Vital Signs - 8 hr 04/11/19 01:14 04/11/19 01:35 04/11/19 05:00 Temperature 99.9 F H 98.8 F 98.8 F Pulse Rate 99 H 100 H 106 H Respiratory Rate 18 18 18 Blood Pressure 141/73 H 148/85 H 153/89 H Pulse Oximetry 98 94 95 <Robby Gutierrez MD - Last Filed: 04/11/19 01:29> Orders Ordered: ED Orders 04/11/19 00:21 Education, smoking cessation ONGOING 04/11/19 01:56 Consult to Blueprint Machine Operator Routine 04/11/19 05:04 Complete Blood Count MAN DIFF Routine Comprehensive Metabolic Panel Routine Acetaminophen (Tylenol) 650 mg PO Q6HR PRN PRN Reason: As Needed for Fever/Mild Pain Chlordiazepoxide HCl (Librium) 50 mg PO BEDTIME NATHAN Clonidine HCl (Catapres) 0.1 mg PO Q4HR PRN PRN Reason: Alcohol Withdrawal Folic Acid (Folic Acid) 1 mg PO DAILY [facility] Sodium Chloride (Normal Saline 0.9%) 1,000 mls @ 100 mls/hr IV CONT NATHAN Last Admin: 04/11/19 03:24 Dose: 100 mls/hr Lorazepam (Ativan) 1 mg PO Q2HR PRN PRN Reason: Anxiety Lorazepam (Ativan) 1 mg IV Q2HR PRN PRN Reason: Anxiety Last Admin: 04/11/19 06:50 Dose: 1 mg Multivitamins (Tab-A-Adwoa) 1 tab PO DAILY [facility] Ondansetron HCl (Zofran) 4 mg IV Q4HR PRN PRN Reason: Nausea And Vomiting Last Admin: 04/10/19 12:46 Dose: 4 mg Ondansetron HCl (Zofran) 4 mg IV Q6HR PRN PRN Reason: Nausea And Vomiting Thiamine HCl (Vitamin B-1) 100 mg PO DAILY [facility] Stop: 04/14/19 09:01 Discontinued Medications Chlordiazepoxide HCl (Librium) 50 mg PO NOW ONE Stop: 04/11/19 03:17 Last Admin: 04/11/19 03:38 Dose: 50 mg Enoxaparin Sodium (Lovenox) 40 mg SUBCUT DAILY [facility] Sodium Chloride (Normal Saline 0.9%) 1,000 mls @ 1,000 mls/hr IV BOLUS ONE Stop: 04/10/19 13:09 Last Infusion: 04/10/19 14:15 Dose: 0 mls/hr Admin: 04/10/19 12:46 Dose: 1,000 mls/hr Sodium Chloride (Normal Saline 0.45%) 1,000 mls @ 100 mls/hr IV CONT NATHAN Ketorolac Tromethamine (Toradol) 30 mg IV NOW ONE Stop: 04/11/19 02:18 Last Admin: 04/11/19 03:20 Dose: 30 mg Lorazepam (Ativan) 1 mg IV NOW ONE Stop: 04/10/19 16:43 Last Admin: 04/10/19 16:58 Dose: 1 mg Lorazepam (Ativan) 1 mg IV NOW ONE Stop: 04/10/19 18:31 Last Admin: 04/10/19 18:57 Dose: 1 mg Lorazepam (Ativan) 1 mg IV NOW ONE Stop: 04/10/19 21:23 Last Admin: 04/10/19 21:25 Dose: 1 mg Lorazepam (Ativan) 1 mg PO NOW ONE Stop: 04/11/19 00:11 Last Admin: 04/11/19 00:20 Dose: 1 mg Lorazepam (Ativan) 2 mg PO Q8HR [facility]; Protocol Ondansetron HCl (Zofran) 4 mg IV Q8HR PRN PRN Reason: Nausea And Vomiting Pantoprazole Sodium (Protonix) 40 mg IV NOW ONE Stop: 04/11/19 02:17 Last Admin: 04/11/19 03:20 Dose: 40 mg Vital Signs - 8 hr 04/11/19 01:14 04/11/19 01:35 04/11/19 05:00 Temperature 99.9 F H 98.8 F 98.8 F Pulse Rate 99 H 100 H 106 H Respiratory Rate 18 18 18 Blood Pressure 141/73 H 148/85 H 153/89 H Pulse Oximetry 98 94 95 MDM - Overdose <Salvatore Sabine, DO - Last Filed: 04/11/19 08:13> Lab Data Result diagrams: 04/11/19 05:04 04/11/19 05:04 Lab Results 04/10/19 04/10/19 04/10/19 Range/Units 12:25 12:55 13:00 WBC 8.8 (4.5-11.0) X10^3/uL RBC 6.00 H (4.5-5.9) X10^6/uL Hgb 17.5 (13.5-17.5) g/dL Hct 51.6 (41-53) % MCV 86.0 (80-100) fL MCH 29.2 (26-34) PG MCHC 33.9 (30-36) % RDW 14.5 (11.6-14.8) % Plt Count 289 (150-400) X10^3/uL Neut % (Auto) 54.2 (50-75) % Lymph % (Auto) 39.8 (25-40) % [place] % (Auto) 4.7 (3-14) % Eos % (Auto) 0.6 L (2-4) % Baso % (Auto) 0.7 (0-2) % Neut # (Auto) 4800 (8828-7765) /uL Lymph # (Auto) 3500 (6350-1352) /uL [place] # (Auto) 400 (0-900) /uL Eos # (Auto) 100 (0-450) /uL Baso # (Auto) 100 (0-100) /uL Total Counted Seg Neutrophils % (38-70) % Band Neutrophils % (3-7) % Lymphocytes % (Manual) (25-45) % Atypical Lymphs % ( - 0) % Monocytes % (Manual) (2-11) % Eosinophils % (Manual) (2-4) % Basophils % (Manual) (0-1) % Neutrophils # (Manual) (7236-6661) /uL RBC Morphology Sodium 148 H (137-145) mmol/L Potassium 4.0 (3.4-5.1) mmol/L Chloride 103 (98-107) mmol/L Carbon Dioxide 33 H (22-32) mmol/L BUN 13 (9-20) mg/dL Creatinine 0.60 L (0.66-1.25) mg/dL Estimated GFR > 60.0 (>60) mL/min BUN/Creatinine Ratio 21.7 (6-22) Glucose 109 H (70-100) mg/dL Calcium 8.6 (8.4-10.2) mg/dL Total Bilirubin 0.8 (0.2-1.3) mg/dL AST 86 H (17-59) IU/L ALT 55 (21-72) IU/L Alkaline Phosphatase 88 (38-126) U/L Total Protein 7.8 (6.3-8.2) g/dL Albumin 4.5 (3.5-5.0) g/dL Globulin 3.3 (1.7-4.1) g/dL Albumin/Globulin Ratio 1.4 (1.0-2.8) Salicylates < 1.0 (<20) mg/dL Urine Opiates Screen Negative (Negative) Ur Oxycodone Screen Negative (Negative) Urine Methadone Screen Negative (Negative) Acetaminophen < 10 L (10-30) ug/mL Ur Barbiturates Screen Negative (Negative) U Tricyclic Antidepress Negative (Negative) Ur Phencyclidine Scrn Negative (Negative) Ur Amphetamines Screen Negative (Negative) U Methamphetamines Scrn Negative (Negative) Ur MDMA Scrn (Ecstasy) Negative (Negative) U Benzodiazepines Scrn Positive H (Negative) Urine Cocaine Screen Negative (Negative) U Marijuana (THC) Screen Negative (Negative) Ethyl Alcohol 400 H* mg/dL 04/10/19 04/11/19 04/11/19 Range/Units 17:30 05:04 05:04 WBC 8.5 (4.5-11.0) X10^3/uL RBC 5.08 (4.5-5.9) X10^6/uL Hgb 14.9 (13.5-17.5) g/dL Hct 43.5 (41-53) % MCV 85.7 (80-100) fL MCH 29.3 (26-34) PG MCHC 34.2 (30-36) % RDW 14.4 (11.6-14.8) % Plt Count 235 (150-400) X10^3/uL Neut % (Auto) (50-75) % Lymph % (Auto) (25-40) % [place] % (Auto) (3-14) % Eos % (Auto) (2-4) % Baso % (Auto) (0-2) % Neut # (Auto) (9763-6923) /uL Lymph # (Auto) (9126-0650) /uL [place] # (Auto) (0-900) /uL Eos # (Auto) (0-450) /uL Baso # (Auto) (0-100) /uL Total Counted 100 Seg Neutrophils % 64.0 (38-70) % Band Neutrophils % 1.0 L (3-7) % Lymphocytes % (Manual) 31.0 (25-45) % Atypical Lymphs % 1.0 H ( - 0) % Monocytes % (Manual) 1.0 L (2-11) % Eosinophils % (Manual) 1.0 L (2-4) % Basophils % (Manual) 1.0 (0-1) % Neutrophils # (Manual) 5525 (7100-1169) /uL RBC Morphology Normal morphology Sodium 139 (137-145) mmol/L Potassium 3.4 (3.4-5.1) mmol/L Chloride 98 (98-107) mmol/L Carbon Dioxide 25 (22-32) mmol/L BUN 15 (9-20) mg/dL Creatinine 0.70 (0.66-1.25) mg/dL Estimated GFR > 60.0 (>60) mL/min BUN/Creatinine Ratio 21.4 (6-22) Glucose 82 (70-100) mg/dL Calcium 8.5 (8.4-10.2) mg/dL Total Bilirubin 1.4 H (0.2-1.3) mg/dL AST 72 H (17-59) IU/L ALT 47 (21-72) IU/L Alkaline Phosphatase 78 (38-126) U/L Total Protein 6.9 (6.3-8.2) g/dL Albumin 4.1 (3.5-5.0) g/dL Globulin 2.8 (1.7-4.1) g/dL Albumin/Globulin Ratio 1.5 (1.0-2.8) Salicylates (<20) mg/dL Urine Opiates Screen (Negative) Ur Oxycodone Screen (Negative) Urine Methadone Screen (Negative) Acetaminophen (10-30) ug/mL Ur Barbiturates Screen (Negative) U Tricyclic Antidepress (Negative) Ur Phencyclidine Scrn (Negative) Ur Amphetamines Screen (Negative) U Methamphetamines Scrn (Negative) Ur MDMA Scrn (Ecstasy) (Negative) U Benzodiazepines Scrn (Negative) Urine Cocaine Screen (Negative) U Marijuana (THC) Screen (Negative) Ethyl Alcohol 289 mg/dL <Robby Gutierrez MD - Last Filed: 04/11/19 01:29> Lab Data Lab Results 04/10/19 04/10/19 04/10/19 Range/Units 12:25 12:55 13:00 WBC 8.8 (4.5-11.0) X10^3/uL RBC 6.00 H (4.5-5.9) X10^6/uL Hgb 17.5 (13.5-17.5) g/dL Hct 51.6 (41-53) % MCV 86.0 (80-100) fL MCH 29.2 (26-34) PG MCHC 33.9 (30-36) % RDW 14.5 (11.6-14.8) % Plt Count 289 (150-400) X10^3/uL Neut % (Auto) 54.2 (50-75) % Lymph % (Auto) 39.8 (25-40) % [place] % (Auto) 4.7 (3-14) % Eos % (Auto) 0.6 L (2-4) % Baso % (Auto) 0.7 (0-2) % Neut # (Auto) 4800 (3103-4550) /uL Lymph # (Auto) 3500 (5007-1938) /uL [place] # (Auto) 400 (0-900) /uL Eos # (Auto) 100 (0-450) /uL Baso # (Auto) 100 (0-100) /uL Total Counted Seg Neutrophils % (38-70) % Band Neutrophils % (3-7) % Lymphocytes % (Manual) (25-45) % Atypical Lymphs % ( - 0) % Monocytes % (Manual) (2-11) % Eosinophils % (Manual) (2-4) % Basophils % (Manual) (0-1) % Neutrophils # (Manual) (5857-5579) /uL RBC Morphology Sodium 148 H (137-145) mmol/L Potassium 4.0 (3.4-5.1) mmol/L Chloride 103 (98-107) mmol/L Carbon Dioxide 33 H (22-32) mmol/L BUN 13 (9-20) mg/dL Creatinine 0.60 L (0.66-1.25) mg/dL Estimated GFR > 60.0 (>60) mL/min BUN/Creatinine Ratio 21.7 (6-22) Glucose 109 H (70-100) mg/dL Calcium 8.6 (8.4-10.2) mg/dL Total Bilirubin 0.8 (0.2-1.3) mg/dL AST 86 H (17-59) IU/L ALT 55 (21-72) IU/L Alkaline Phosphatase 88 (38-126) U/L Total Protein 7.8 (6.3-8.2) g/dL Albumin 4.5 (3.5-5.0) g/dL Globulin 3.3 (1.7-4.1) g/dL Albumin/Globulin Ratio 1.4 (1.0-2.8) Salicylates < 1.0 (<20) mg/dL Urine Opiates Screen Negative (Negative) Ur Oxycodone Screen Negative (Negative) Urine Methadone Screen Negative (Negative) Acetaminophen < 10 L (10-30) ug/mL Ur Barbiturates Screen Negative (Negative) U Tricyclic Antidepress Negative (Negative) Ur Phencyclidine Scrn Negative (Negative) Ur Amphetamines Screen Negative (Negative) U Methamphetamines Scrn Negative (Negative) Ur MDMA Scrn (Ecstasy) Negative (Negative) U Benzodiazepines Scrn Positive H (Negative) Urine Cocaine Screen Negative (Negative) U Marijuana (THC) Screen Negative (Negative) Ethyl Alcohol 400 H* mg/dL 04/10/19 04/11/19 04/11/19 Range/Units 17:30 05:04 05:04 WBC 8.5 (4.5-11.0) X10^3/uL RBC 5.08 (4.5-5.9) X10^6/uL Hgb 14.9 (13.5-17.5) g/dL Hct 43.5 (41-53) % MCV 85.7 (80-100) fL MCH 29.3 (26-34) PG MCHC 34.2 (30-36) % RDW 14.4 (11.6-14.8) % Plt Count 235 (150-400) X10^3/uL Neut % (Auto) (50-75) % Lymph % (Auto) (25-40) % [place] % (Auto) (3-14) % Eos % (Auto) (2-4) % Baso % (Auto) (0-2) % Neut # (Auto) (3232-0751) /uL Lymph # (Auto) (0175-0147) /uL [place] # (Auto) (0-900) /uL Eos # (Auto) (0-450) /uL Baso # (Auto) (0-100) /uL Total Counted 100 Seg Neutrophils % 64.0 (38-70) % Band Neutrophils % 1.0 L (3-7) % Lymphocytes % (Manual) 31.0 (25-45) % Atypical Lymphs % 1.0 H ( - 0) % Monocytes % (Manual) 1.0 L (2-11) % Eosinophils % (Manual) 1.0 L (2-4) % Basophils % (Manual) 1.0 (0-1) % Neutrophils # (Manual) 5525 (5562-1183) /uL RBC Morphology Normal morphology Sodium 139 (137-145) mmol/L Potassium 3.4 (3.4-5.1) mmol/L Chloride 98 (98-107) mmol/L Carbon Dioxide 25 (22-32) mmol/L BUN 15 (9-20) mg/dL Creatinine 0.70 (0.66-1.25) mg/dL Estimated GFR > 60.0 (>60) mL/min BUN/Creatinine Ratio 21.4 (6-22) Glucose 82 (70-100) mg/dL Calcium 8.5 (8.4-10.2) mg/dL Total Bilirubin 1.4 H (0.2-1.3) mg/dL AST 72 H (17-59) IU/L ALT 47 (21-72) IU/L Alkaline Phosphatase 78 (38-126) U/L Total Protein 6.9 (6.3-8.2) g/dL Albumin 4.1 (3.5-5.0) g/dL Globulin 2.8 (1.7-4.1) g/dL Albumin/Globulin Ratio 1.5 (1.0-2.8) Salicylates (<20) mg/dL Urine Opiates Screen (Negative) Ur Oxycodone Screen (Negative) Urine Methadone Screen (Negative) Acetaminophen (10-30) ug/mL Ur Barbiturates Screen (Negative) U Tricyclic Antidepress (Negative) Ur Phencyclidine Scrn (Negative) Ur Amphetamines Screen (Negative) U Methamphetamines Scrn (Negative) Ur MDMA Scrn (Ecstasy) (Negative) U Benzodiazepines Scrn (Negative) Urine Cocaine Screen (Negative) U Marijuana (THC) Screen (Negative) Ethyl Alcohol 289 mg/dL MDM Narrative Medical decision making narrative: I assumed care from Dr. Calvin about 7:00 p.m., falling change of shift. After my arrival to the ER the patient is up and alert. He requested Ativan, feeling shaky. DCR evaluated the patient. DCR felt the patient met criteria for retention and hospitalization for detox under [place] law. However no legal to detox spaces are available. The patient would have agreed to a standard detox bed. There are no detox beds available in [facility]. He has asked for more Ativan, stating he would be interested in detox. He has no tachycardia. He has a weakened oriented. He does have a tremor. He has remote history of seizure, none recent. On exam, his vitals are stable, he is alert, oriented, capable decision making. Cardiac exam is normal. Lungs are clear. I discussed the patient with AURELIANO Spencer, the hospitalist working tonight. I recommended observation admission with detox meds. I suggested our social work instructor at [facility] may be called to further assist the patient in the morning. The hospitalist agreed, she will care for the patient tonight. Assessment: 1. Alcoholism. 2. Alcoholic withdrawal Plan: Admit to the accepting hospitalist as noted above. Discharge Plan Departure Patient Disposition: Admitted as Observation Clinical Impression: Alcoholic intoxication Qualifiers: Complication of substance-induced condition: uncomplicated Qualified Code(s): F10.920 - Alcohol use, unspecified with intoxication, uncomplicated Alcohol withdrawal Qualifiers: Complication of substance-induced condition: uncomplicated Qualified Code(s): F10.230 - Alcohol dependence with withdrawal, uncomplicated Discharge Date/Time: 04/11/19 01:30 Interventions: ED Discharge Assessment Last Done: 04/11/19 01:14 Admit Date/Time: 04/11/19 00:04 Admit Provider: Ila Spencer
[2019-04-10] MEDS: LORazepam 2 MG/ML SYRINGE 1 MG IV ×3 (16:58→21:25)
[2019-04-10 18:20] LABS: Ethanol (ETOH) 289 mg/dL
--- NOTE | 2019-04-10 20:36 | PC.NURSE ---
DCR [place] now here for eval
[2019-04-11] VITALS (17 sets, daily range): BP systolic 128–153; BP diastolic 61–99; PULSE 82–106; RESP 15–20; TEMP 36.8–37.7; O2SAT 93–99; BMI 39.5
[2019-04-11] MEDS: LORazepam 1 MG TABLET PO (00:20)
--- NOTE | 2019-04-11 01:07 | P.HP_ITS ---
History of Present Illness Date Patient Seen: 04/11/19 Time Patient Seen: 00:01 Chief complaint: etoh/ airway concern Narrative: Edi Eagle is a 29 year old male with recurrent alcoholic intoxication who was recently discharged on April 08 for the same. At the time of discharge the patient was advised not to abruptly discontinue his alcohol due to the patient having the potential for having seizures. At that time he was to check into detoxification at a local facility however this does not appear to have been done. The patient informed me that he was in a hotel room and when he was due to check out the hotel staff went in to inspect his room and found that he was unconscious. He does not recall how long he was unconscious or when his last drink was. He states he drinks approximately a 1/5th of a bottle of vodka per day. Upon presentation to the ED, the patient's blood alcohol level was 400 at 1:00 p.m. Repeat of that blood alcohol level was 289 at 0530 p.m. patient's urine toxicology indicated benzodiazepines, however it does not appear that the patient has been regularly prescribed for this. Per the ED provider they had the patient assessed by [facility] who were not able to locate a detox bed for the patient. The ED also attempted to locate a bed at [facility] and were unable to locate a detox bed either. The patient will be placed in an observation bed with attempts to have him placed in an inpatient detoxification facility tomorrow. Patient History Medical History Alcohol abuse (Acute) Kidney stones (Acute) Surgical History No pertinent past surgical history (Acute) Family History (Updated 04/11/19 @ 01:18 by AURELIANO Maravilla) Mother No problems noted. Father Lung cancer Social History household members: friend(s) Smoking Status: Never smoker alcohol intake: current substance use type: other Family & Social History Family History Mother No problems noted. Father Lung cancer Social History: household members friend(s) Tobacco & Substance use: Smoking Status Never smoker alcohol intake current alcohol intake frequency 3 or more drinks per day Substance Use Type does not use Meds Home Medications Medication Instructions Recorded Confirmed Type Unobtainable 04/10/19 04/10/19 History Allergies Allergy/AdvReac Type Severity Reaction Status Date / Time tramadol Allergy Rash Verified 04/06/19 16:14 Review of Systems Review of Systems Patient does endorse having some nausea however has not vomited. He does endorse having passed out however he does not known how long this occurred for. Denies shortness of breath, chest pain, headaches, seizure activity, dysuria, abdominal pain, diarrhea, or constipation. Exam Vital Signs (past 8 hours): - 04/10/19 18:12 04/10/19 20:11 04/10/19 20:20 Temperature 98.1 F Pulse Rate 102 H 106 H 96 H Respiratory Rate 18 16 19 Blood Pressure [Left Arm] 119/65 Blood Pressure [Right Arm] 141/82 H 141/76 H Pulse Oximetry 98 97 04/10/19 20:30 04/10/19 20:40 04/10/19 20:50 Temperature Pulse Rate 97 H 101 H 101 H Respiratory Rate 19 19 20 Blood Pressure [Left Arm] Blood Pressure [Right Arm] 136/77 132/79 142/83 H Pulse Oximetry 04/10/19 21:10 04/10/19 21:20 04/10/19 21:30 Temperature Pulse Rate 99 H 99 H 101 H Respiratory Rate 21 19 20 Blood Pressure [Left Arm] Blood Pressure [Right Arm] 137/77 144/79 H 132/83 Pulse Oximetry 94 04/10/19 22:00 04/10/19 22:49 Temperature Pulse Rate 101 H 94 H Respiratory Rate 22 20 Blood Pressure [Left Arm] 121/75 Blood Pressure [Right Arm] 121/75 Pulse Oximetry 93 93 Oxygen Delivery Method Room Air Narrative Exam Narrative: General: Alert oriented morbidly obese 29-year-old male, disheveled and in no distress HEENT: Head is normocephalic atraumatic, conjunctivae is clear sclera nonicteric, oral and nasal mucosa are pink and moist Neck: Supple, no tracheal deviation, no JVD. Respirations: Lung sounds are clear to auscultation bilaterally no wheezes or rhonchi CV: Tachycardic regular rhythm with no murmur rubs Abdomen: Obese soft and nontender with normoactive bowel tones Skin: No open lesions or rashes otherwise dry and intact Neuro: Alert and oriented x4 with no focal deficits Extremities: Has full range of motion of his upper and lower extremities, is ambulatory Psych: Normal mood and affect Objective Labs Result Diagrams: 04/10/19 12:25 04/10/19 13:00 Labs: Laboratory Results - last 24 hr 04/10/19 04/10/19 04/10/19 12:25 12:55 13:00 WBC 8.8 RBC 6.00 H Hgb 17.5 Hct 51.6 MCV 86.0 MCH 29.2 MCHC 33.9 RDW 14.5 Plt Count 289 Neut % (Auto) 54.2 Lymph % (Auto) 39.8 [place] % (Auto) 4.7 Eos % (Auto) 0.6 L Baso % (Auto) 0.7 Neut # (Auto) 4800 Lymph # (Auto) 3500 [place] # (Auto) 400 Eos # (Auto) 100 Baso # (Auto) 100 Sodium 148 H Potassium 4.0 Chloride 103 Carbon Dioxide 33 H BUN 13 Creatinine 0.60 L Estimated GFR > 60.0 BUN/Creatinine Ratio 21.7 Glucose 109 H Calcium 8.6 Total Bilirubin 0.8 AST 86 H ALT 55 Alkaline Phosphatase 88 Total Protein 7.8 Albumin 4.5 Globulin 3.3 Albumin/Globulin Ratio 1.4 Salicylates < 1.0 Urine Opiates Screen Negative Ur Oxycodone Screen Negative Urine Methadone Screen Negative Acetaminophen < 10 L Ur Barbiturates Screen Negative U Tricyclic Antidepress Negative Ur Phencyclidine Scrn Negative Ur Amphetamines Screen Negative U Methamphetamines Scrn Negative Ur MDMA Scrn (Ecstasy) Negative U Benzodiazepines Scrn Positive H Urine Cocaine Screen Negative U Marijuana (THC) Screen Negative Ethyl Alcohol 400 H* 04/10/19 17:30 WBC RBC Hgb Hct MCV MCH MCHC RDW Plt Count Neut % (Auto) Lymph % (Auto) [place] % (Auto) Eos % (Auto) Baso % (Auto) Neut # (Auto) Lymph # (Auto) [place] # (Auto) Eos # (Auto) Baso # (Auto) Sodium Potassium Chloride Carbon Dioxide BUN Creatinine Estimated GFR BUN/Creatinine Ratio Glucose Calcium Total Bilirubin AST ALT Alkaline Phosphatase Total Protein Albumin Globulin Albumin/Globulin Ratio Salicylates Urine Opiates Screen Ur Oxycodone Screen Urine Methadone Screen Acetaminophen Ur Barbiturates Screen U Tricyclic Antidepress Ur Phencyclidine Scrn Ur Amphetamines Screen U Methamphetamines Scrn Ur MDMA Scrn (Ecstasy) U Benzodiazepines Scrn Urine Cocaine Screen U Marijuana (THC) Screen Ethyl Alcohol 289 Assessment & Plan Assessment & Plan narrative: Nito Eagle will be observed overnight. Will check 1 more alcohol level in the morning. It is hoped that social Work will be able to locate a detox bed for this patient. 1. Acute alcohol intoxication - CIWA protocol - Judicious use of lorazepam - Multi vitamin, folic acid, and thiamin supplementation - Social work consult, to assist in locating inpatient detox facility for the patient Patient is admitted to observation as his stay is anticipated to not to exceed 2 midnights. FEN: IV NS at 100 ml/hour, regular diet, CMP in the am VTE Prophylaxis: Enoxaparin 40 mg subQ daily Disposition: Inpatient rehab Code status: Full Code Admission time: 55 minutes Meds reconciled: No regularly scheduled outpatient medicaitons Quality VTE Deep Vein Thrombosis/Pulmonary Embolism Present on Admission: No
--- NOTE | 2019-04-11 02:07 | PC.NURSE ---
Addendum entered by Kirit Viera R.N. 04/11/19 06:53: 0625: Pt awake, vomiting. Shantel BEDOYA notified. New orders are to change Ativan to IV or PO. 0650: Ativan 1mg given IV. Addendum entered by Kirit Viera R.N. 04/11/19 03:39: 0320: Pt reported that he is seeing black dots all over the room. AURELIANO Ayoub notified. New orders are to give Librium 50mg now, discontinue the scheduled Ativan, and give Ativan 1mg po Q2hrs prn. Original Note: Laboratory Equipment Cleaner Note: 0135: Admitted to acute care room 227 from ER. Pt is on telemetry. IV in place in rt AC. Pt is alert, oriented X3. He has a noticible tremor of arms. He is steady on his feet and able to walk to bed from wheelchair. Sz pads placed on rails.
[2019-04-11] MEDS: PANTOPRAZOLE 40 MG VIAL IV (03:20)
[2019-04-11] MEDS: KETOROLAC 30 MG/ML VIAL IV (03:20)
[2019-04-11] MEDS: SODIUM CHLORIDE 0.9% 1,000 ML 100 ML IV ×2 (03:24→13:02)
[2019-04-11] MEDS: chlordiazePOXIDE 25 MG CAPSULE 50 MG PO (03:38)
[2019-04-11 05:51] LABS: Hematocrit 43.5 % (41-53); Hemoglobin 14.9 g/dL (13.5-17.5); Mean Corpuscular HGB Conc 34.2 % (30-36); Mean Corpuscular Hemoglobin 29.3 PG (26-34); Mean Corpuscular Volume 85.7 fL (80-100); Platelet Count 235 X10^3/uL (150-400); Red Blood Cell Count 5.08 X10^6/uL (4.5-5.9); Red Cell Distribution Width 14.4 % (11.6-14.8); White Blood Cell Count 8.5 X10^3/uL (4.5-11.0)
[2019-04-11 06:15] LABS: Alanine Aminotransferase 47 IU/L (21-72); Albumin 4.1 g/dL (3.5-5.0); Albumin Globulin Ratio 1.5 (1.0-2.8); Alkaline Phosphatase 78 U/L (38-126); Aspartate Aminotransferase 72 IU/L (17-59); BUN Creatinine Ratio 21.4 (6-22); Bilirubin Total 1.4 mg/dL (0.2-1.3); Blood Urea Nitrogen 15 mg/dL (9-20); Calcium 8.5 mg/dL (8.4-10.2); Carbon Dioxide 25 mmol/L (22-32); Chloride 98 mmol/L (98-107); Estimated Glomerular Filt Rate > 60.0 mL/min (>60); Globulin 2.8 g/dL (1.7-4.1); Glucose 82 mg/dL (70-100); HEMOLYSIS < 15 (0-50); Potassium 3.4 mmol/L (3.4-5.1); Sodium 139 mmol/L (137-145); Total Protein 6.9 g/dL (6.3-8.2)
[2019-04-11] MEDS: LORazepam 2 MG/ML SYRINGE 1 MG IV ×2 (06:50→09:51)
[2019-04-11 06:58] LABS: Neutrophils Absolute Manual 5525 /uL (3000-5900); RBC Morphology Normal Morphology; Total Cells Counted 100
[2019-04-11] MEDS: FOLIC ACID 1 MG TABLET PO (09:57)
[2019-04-11] MEDS: THIAMINE 100 MG TABLET PO (09:58)
[2019-04-11] MEDS: MULTIVITAMIN 1 TABLET 1 TAB PO (09:58)
[2019-04-11] MEDS: LORazepam 2 MG/ML INJ IV ×4 (11:02→22:02)
[2019-04-11] MEDS: ACETAMINOPHEN 325 MG TABLET 650 MG PO (11:03)
[2019-04-11] MEDS: cloNIDine 0.1 MG TABLET PO ×2 (12:09→22:02)
[2019-04-11] MEDS: HALOPERIDOL 5 MG/ML VIAL 2 MG IV ×2 (13:08→17:55)
--- NOTE | 2019-04-11 13:39 | PC.NURSE ---
Day Shift- Pt A&OX4, cooperative. High fall risk precautions in place with aspiration precautions, seizure precautions with bed seizure pads. Suction available in room. Pt uses call light appropriately. This AM rates RUQ abd sharp pain and tenderness 7/10, requesting prn med. Spoke with Dr. granados this AM around 1010, okay to give dose of prn Tylenol that was given at 1100. Pain decreased to 5/10. IVF infusing well to right AC PIV. Pt did not have breakfast. Nauseated with small amount of clear emesis this AM around 0930. Pt did eat 100% of lunch. CIWA scores range from 11-16 this shift. Scores from AM to PM were 74-48-54-14-11. Ativan 1mg IV prn given at 0945 with little effect, pt states worked for about 15mins. Spoke with Dr. Granados around 1010 to given update regarding CIWA protocol. New orders rec'd, Ativan 2mg IV PRN per CIWA protocol linked to MAR given at 1103 and 1134. Update given to Dr. granados again as CIWA scores were increasing with increased tactile and auditory hallucinations. Pt describes seeing black dots, non distressing. Hearing voices talk to him and states the IV pump is talking to him but cannot make out what is being said. He stated an increase in tactile disturbance where tingling, and felt like bugs, ants crawling on his skin. Started at his hands then increased to bilateral arms, then increased again to head and neck. After update given to Dr. Granados, PRN Clonidine given at 1210. Upon reassessment, CIWA score was 11. PRN Haldol given at 1319. Per Dr to follow protocol and use prn meds for withdrawl symptoms. [place] [address] after PRN Haldol dose, pt snoring, O2 sat 91% on RA, awakes with verbal stimulation and touch.
[2019-04-11] MEDS: LORazepam 2 MG/ML INJ 1 MG IV (16:57)
--- NOTE | 2019-04-11 17:06 | CM.SWNOTE ---
CEMENT TESTER ASSISTANT Note: Reviewed chart. Patient is a 27yr old male admitted to [facility] with alcohol w/d symptoms. No PCP listed. Primary payor is 1)[facility] 2)Medicaid. Received CEMENT TESTER ASSISTANT consult for potential detainment under Oamri's Law see note from CEMENT TESTER ASSISTANT on 04-07-19. Patient with multiple visits to [facility] ED with same complaint. This CEMENT TESTER ASSISTANT saw patient on Wednesday04-08-19. At time of that discharge patient reported that he was going to return to [facility] and follow up as outpatient with [facility]. Met with patient today to discuss above and re-introduce CEMENT TESTER ASSISTANT role. Patient reports that he ended up drinking again. Patient reports that he feels awful. Patient currently with high CIWA scores requiring IV medications. CEMENT TESTER ASSISTANT placed call to [facility] crisis re: next steps. They report that they will not dispatch DCR until patient stable from detox standpoint i.e. not requiring IV medications. Dr. Rosario notified. In addition placed separate call to [facility]/DCR he confirms that he is not on shift today. His suggestion is that before dispatching DCR check to see if there are any beds at the following in the AM: 1)[place] 2)[facility] [place]. He reports better chance of DCR dispatch if detox bed available. Patient was inpatient for alcohol treatment and discharged within the last 30dys per [facility]. P: Pending. Patient requiring alcohol detox. He clearly should not be discharged back to [facility] to complete detox due to previous failed attempts. 1)Complete detox in one of the above locations 2)Complete alcohol detox at [facility] RN instructed to call Crisis and provided with number if patient desires to leave AMA. Patient currently not detained due to lack of detox beds. Refer to [facility] for details. JASVIR Dubose Discharge Planning/Care Management CM Discharge Assessment Start: 04/11/19 17:04 Freq: Status: Active Protocol: Document 04/11/19 17:04 KJS (Rec: 04/11/19 17:06 S [id number]) Discharge Planning Assessment Assigned [employer] Travel Counselor JASVIR Dubose Contact Information None Advance Directives? No History Provided By Patient Medical Record Has Patient been admitted in last 30 Yes days? Comment See previous CEMENT TESTER ASSISTANT notes dated . Comment Motel Household Members friend(s) none Type of transporation used prior to Medicaid Transport admit Independent with ADL's Yes Is patient alert and oriented? Yes Caregiver for Another No Patient/Family Preference Drug/Alcohol Rehab Barriers to Discharge Yes Discharge Plan Drug Rehabilitation Transportation Arrangement Medicaid taxi Whiteboard Updated in Patient Room with Yes name and ext. # of Automobile Club Travel Counselor Review Status In Process Next Review Type Continued Stay Review
--- NOTE | 2019-04-11 17:18 | PC.NURSE ---
toya shift- assumed care of pt from outgoing shift. Pt asleep at this time, arouses to light touch and name. oriented upon arousal. cooperative. makes needs known. see chart for ciwa. uses call [place]. bed alarm on. fluids infusing and tolerating. will continue to monitor pt for safety.
--- NOTE | 2019-04-11 17:36 | PM.PN.1 ---
Exam Vital Signs (past 8 hours): - 04/11/19 11:00 04/11/19 11:36 04/11/19 11:56 Temperature 98.3 F Pulse Rate 97 H 101 H Respiratory Rate 16 16 Blood Pressure 146/83 H 151/83 H Pulse Oximetry 94 96 04/11/19 13:01 04/11/19 13:37 04/11/19 13:50 Temperature Pulse Rate 95 H 95 H Respiratory Rate 15 15 Blood Pressure 148/78 H 148/78 H Pulse Oximetry 99 95 95 04/11/19 16:14 04/11/19 16:55 Temperature 98.3 F Pulse Rate 83 Respiratory Rate 20 Blood Pressure 143/85 H Pulse Oximetry 95 99 Oxygen Delivery Method Room Air Oxygen Flow Rate 0 Objective Labs Result Diagrams: 04/11/19 05:04 04/11/19 05:04 Labs: Laboratory Results - last 24 hr 04/10/19 04/11/19 04/11/19 17:30 05:04 05:04 WBC 8.5 RBC 5.08 Hgb 14.9 Hct 43.5 MCV 85.7 MCH 29.3 MCHC 34.2 RDW 14.4 Plt Count 235 Total Counted 100 Seg Neutrophils % 64.0 Band Neutrophils % 1.0 L Lymphocytes % (Manual) 31.0 Atypical Lymphs % 1.0 H Monocytes % (Manual) 1.0 L Eosinophils % (Manual) 1.0 L Basophils % (Manual) 1.0 Neutrophils # (Manual) 5525 RBC Morphology Normal morphology Sodium 139 Potassium 3.4 Chloride 98 Carbon Dioxide 25 BUN 15 Creatinine 0.70 Estimated GFR > 60.0 BUN/Creatinine Ratio 21.4 Glucose 82 Calcium 8.5 Total Bilirubin 1.4 H AST 72 H ALT 47 Alkaline Phosphatase 78 Total Protein 6.9 Albumin 4.1 Globulin 2.8 Albumin/Globulin Ratio 1.5 Ethyl Alcohol 289 Assessment & Plan Assessment & Plan narrative: Brief progress note: Patient seen and examined. Vital signs stable. CIWA score 14. Adjusted CIWA protocol for lorazepam dosing. Also added Haldol per CIWA protocol. Physical exam and A&P unchanged otherwise. Quality VTE Deep Vein Thrombosis/Pulmonary Embolism Present on Admission: No
[2019-04-11] MEDS: ONDANSETRON 4 MG/2 ML INJ IV (22:02)
[2019-04-12 00:36] VITALS: BP 149/95; PULSE 91; RESP 20; TEMP 36.7; O2SAT 97
[2019-04-12] MEDS: LORazepam 2 MG/ML INJ IV ×4 (00:37→16:34)
[2019-04-12] MEDS: ACETAMINOPHEN 325 MG TABLET 650 MG PO ×3 (00:37→15:43)
[2019-04-12] MEDS: SODIUM CHLORIDE 0.9% 1,000 ML 100 ML IV ×2 (00:38→10:05)
[2019-04-12 04:04] VITALS: BP 125/76; PULSE 85; RESP 20; TEMP 36.6; O2SAT 92
--- NOTE | 2019-04-12 05:25 | CM.MNRNOTE ---
Assumed care of pt at 2300 on 04/11/19. Pt resting in bed during hand-offf. CIWA at 0030 16, 2mg ativan given. Repeat Ciwa at 0130 7. No medication given. Pt able to sleep. Calling appropriately for needs. IVF infusing per orders. Bed alarm on.
[2019-04-12 05:53] LABS: Add Manual Diff / Slide Review NO; Basophils Absolute Auto 0 /uL (0-100); Basophils Percent Auto 0.2 % (0-2); Eosinophils Absolute Auto 200 /uL (0-450); Hematocrit 41.6 % (41-53); Hemoglobin 14.4 g/dL (13.5-17.5); Lymphocytes Absolute Auto 1800 /uL (1100-4500); Lymphocytes Percent Auto 22.3 % (25-40); Mean Corpuscular HGB Conc 34.5 % (30-36); Mean Corpuscular Hemoglobin 29.3 PG (26-34); Mean Corpuscular Volume 84.8 fL (80-100); Monocytes Absolute Auto 500 /uL (0-900); Monocytes Percent Auto 6.4 % (3-14); Neutrophils Absolute Auto 5600 /uL (1500-7000); Neutrophils Percent Auto 68.1 % (50-75); Platelet Count 178 X10^3/uL (150-400); Red Blood Cell Count 4.91 X10^6/uL (4.5-5.9); Red Cell Distribution Width 13.9 % (11.6-14.8); White Blood Cell Count 8.2 X10^3/uL (4.5-11.0)
[2019-04-12 06:07] LABS: Alanine Aminotransferase 43 IU/L (21-72); Albumin 3.8 g/dL (3.5-5.0); Albumin Globulin Ratio 1.3 (1.0-2.8); Alkaline Phosphatase 90 U/L (38-126); Aspartate Aminotransferase 57 IU/L (17-59); BUN Creatinine Ratio 17.5 (6-22); Bilirubin Total 1.7 mg/dL (0.2-1.3); Blood Urea Nitrogen 14 mg/dL (9-20); Calcium 9.1 mg/dL (8.4-10.2); Carbon Dioxide 30 mmol/L (22-32); Chloride 99 mmol/L (98-107); Estimated Glomerular Filt Rate > 60.0 mL/min (>60); Globulin 2.9 g/dL (1.7-4.1); Glucose 104 mg/dL (70-100); HEMOLYSIS < 15 (0-50); Magnesium 1.6 mg/dL (1.6-2.3); Potassium 3.5 mmol/L (3.4-5.1); Sodium 139 mmol/L (137-145); Total Protein 6.7 g/dL (6.3-8.2)
[2019-04-12 09:00] VITALS: BP 159/95; PULSE 86; RESP 18; TEMP 36.3; O2SAT 95
[2019-04-12] MEDS: MULTIVITAMIN 1 TABLET 1 TAB PO (09:09)
[2019-04-12] MEDS: FOLIC ACID 1 MG TABLET PO (09:09)
[2019-04-12] MEDS: THIAMINE 100 MG TABLET PO (09:10)
[2019-04-12] MEDS: ONDANSETRON 4 MG/2 ML INJ IV ×2 (09:14→14:17)
[2019-04-12 09:30] VITALS: O2SAT 95
--- NOTE | 2019-04-12 10:30 | CM.SWNOTE ---
Reviewed chart. Pt w/ MIKE of 1 this morning, and medically cleared by Dr Rosario. Dr Rosario completed [facility] medical clearance attestation form and this [employer] faxed to [facility] at F# [phone]. Called [facility] Triage line at P# , spoke w/ Rebeka. Reviewed recommendations from DCR dated 04.10.19. Requested DCR dispatch to assess for detainment and attempt to admit at in CD treatment facility. DCR dispatch pending. Pt, RN Eloise and aware. Gabriella Cornejo, [employer]
--- NOTE | 2019-04-12 10:43 | PC.NURSE ---
Addendum entered by Eloise Myers R.N. 04/12/19 14:45: CIWA - pt reports pins and needles, some underlying nausea, anxiety, given 1mg iv ativan and 4mg iv zofran, Randi from [facility] here and spoke to Sanna in [place] and Dr.. Rosario, also called to give update to the hydrotechnical specialist Trish at [facility] in [place], and confirmed acceptance and gave her report. Sanna arranging s transport. Addendum entered by Eloise Myers R.N. 04/12/19 11:52: ANXIETY/HALLUC - after earlier ativan and zofran, pt able to shower with assist from block mason, ret to bed and stated that he was seeing animals back and forth in front of his eyes, pins and needles skin and hearing a voide, and spots in front of his eyes, given 2mg iv haldol now, bed alarm on. Original Note: AM NOTE - pt awakens, req ativan, does have dark spots in front eyes, headache, nausea present, bp 159/95, p62, ra 95%, given 4mg iv zofran, and 1mg iv ativan.
[2019-04-12] MEDS: LOSARTAN 50 MG TABLET PO (11:31)
[2019-04-12] MEDS: HALOPERIDOL 5 MG/ML VIAL 2 MG IV ×2 (11:46→15:39)
[2019-04-12 13:00] VITALS: BP 140/91; PULSE 83; RESP 18; TEMP 36.7; O2SAT 95
--- NOTE | 2019-04-12 14:32 | DIET.PN ---
Recieved consult request r/t ETOH abuse. Pt on CIWA protocol with supplemental vitamins. Visited after lunch. Pt quiet but appeared receptive. Eating well. CIWA scores have been 16-11, decreasing trend. Diet: General DX: ETOH abuse, with drawal Meds include MVI, thiamin, folic acid Usual Diet: a meal per day, which pt admits is more of a snack, plus 1/5th bottle of vodka Assessment: Presumed micronutrient deficiencies r/t excessive ETOH intake; possibly PCM r/t inadquate diet with bulk of intake coming from ETOH. Intervention: Provided education on ability of liver to regenerate - up to a point - and importance of ETOH abstinance along with well balanced diet to promote healing Plan: F/U for further questions.
--- NOTE | 2019-04-12 15:05 | P.DS_ITS ---
History of Present Illness Date Patient Seen: 04/11/19 Chief complaint: etoh/ airway concern Narrative: Written by Ila BEDOYA: Edi Eagle is a 29 year old male with recurrent alcoholic intoxication who was recently discharged on April 08 for the same. At the time of discharge the patient was advised not to abruptly discontinue his alcohol due to the patient having the potential for having seizures. At that time he was to check into detoxification at a local facility however this does not appear to have been done. The patient informed me that he was in a hotel room and when he was due to check out the hotel staff went in to inspect his room and found that he was unconscious. He does not recall how long he was unconscious or when his last drink was. He states he drinks approximately a 1/5th of a bottle of vodka per day. Upon presentation to the ED, the patient's blood alcohol level was 400 at 1:00 p.m. Repeat of that blood alcohol level was 289 at 0530 p.m. patient's urine toxicology indicated benzodiazepines, however it does not appear that the patient has been regularly prescribed for this. Per the ED provider they had the patient assessed by [facility] who were not able to locate a detox bed for the patient. The ED also attempted to locate a bed at [facility] and were unable to locate a detox bed either. The patient will be placed in an observation bed with attempts to have him placed in an inpatient detoxification facility tomorrow. Discharge Providers Date of admission: 04/11/19 00:04 Discharge Date: 04/12/19 Consults: 04/10/19 16:11 Consult to [employer]arr[employer] Fabricator Stat Comment: 04/11/19 01:56 Consult to Earrings Fabricator Routine Comment: 04/11/19 10:14 Consult to Dietitian, Adult Routine Comment: Reason For Exam: EtOH Discharge provider: Ellie Rosario DO Summary Hospital Course: Edi Eagle is a 29-year-old male with a past medical history significant for tobacco dependence and alcohol abuse and with multiple hospitalizations and inpatient treatment visits for alcohol abuse who presented after being found down. 1. Acute alcohol intoxication now with alcohol withdrawal, secondary to alcohol abuse, present on admission. Active. -Patient has been to ER several times after being found down due to alcohol i ntoxication and abuse. Patient states he drinks half a gal of liquor daily. -Continued CIWA protocol. Last CIWA score was 11. -Continued multivitamin, folic acid, and thiamin supplementation daily. -Social work consulted and assisted in locating inpatient detox facility for the patient. We appreciate their time and care of the patient -Patient was determined to be medically cleared. DCR dispatched once a detox bed was available. Patient meets criteria for grave disability to be detained to an intensive inpatient alcohol treatment program. Patient was BEAU under Oamri's Law. 2. Hypertension, present on admission. Active. -Possibly due to essential hypertension versus alcohol withdrawal or a combination thereof. -Continued clonidine per CIWA protocol. -Started losartan 50 mg daily. 3. Tobacco dependence, present on admission. Active. -Ordered nicotine patch daily as needed for nicotine withdrawal. Status at Discharge Functional status at discharge: independent ambulation Overall status at discharge: patient is progressing back to baseline Exam Vital Signs (past 8 hours): - 04/12/19 09:00 04/12/19 09:30 04/12/19 13:00 Temperature 97.4 F L 98.1 F Pulse Rate 86 83 Respiratory Rate 18 18 Blood Pressure 159/95 H 140/91 H Pulse Oximetry 95 95 95 Oxygen Delivery Method Room Air Oxygen Flow Rate 0 Narrative Exam Narrative: General: Young gentleman sitting in bed and in no acute distress, well- developed, well-nourished, mildly diaphoretic and anxious but appropriately interactive. HEENT: Normocephalic, atraumatic. External ears without defect. Pupils equal, round, and reactive to light. Anicteric sclerae, moist conjunctivae, and no lid lag. Neck: Supple with full range of motion. No lymphadenopathy or thyromegaly. Cardiovascular: Regular rate and rhythm without murmurs, rubs, or gallops appre ciated. Pulmonary: Clear to auscultation bilaterally without crackles, wheezes, or rhonchi. Normal respiratory effort with no use of accessory muscles. Abdomen: Soft, obese, bowel sounds present, nontender, nondistended. No hepatosplenomegaly or masses appreciated. Extremities: No clubbing, cyanosis, or edema. Skin: Normal temperature, turgor, and texture; no rash, ulcers, or subcutaneous nodules appreciated. Neurological: Cranial nerves grossly intact. Psychiatric: Anxious mood and flat affect. Alert and oriented to person, place, and time. Objective Labs Result Diagrams: 04/12/19 05:20 04/12/19 05:20 Labs: Laboratory Results - last 24 hr 04/12/19 04/12/19 05:20 05:20 WBC 8.2 RBC 4.91 Hgb 14.4 Hct 41.6 MCV 84.8 MCH 29.3 MCHC 34.5 RDW 13.9 Plt Count 178 Neut % (Auto) 68.1 Lymph % (Auto) 22.3 L [place] % (Auto) 6.4 Eos % (Auto) 3.0 Baso % (Auto) 0.2 Neut # (Auto) 5600 Lymph # (Auto) 1800 [place] # (Auto) 500 Eos # (Auto) 200 Baso # (Auto) 0 Sodium 139 Potassium 3.5 Chloride 99 Carbon Dioxide 30 BUN 14 Creatinine 0.80 Estimated GFR > 60.0 BUN/Creatinine Ratio 17.5 Glucose 104 H Calcium 9.1 Magnesium 1.6 Total Bilirubin 1.7 H AST 57 ALT 43 Alkaline Phosphatase 90 Total Protein 6.7 Albumin 3.8 Globulin 2.9 Albumin/Globulin Ratio 1.3 Discharge Plan Discharge Plan Patient Disposition: Released, Other Transportation: Ambulance Discharge Med Rec/Prescriptions Prescriptions: No Action Unobtainable RF: 0 Discharge Orders: Discharge (Order); Ordered 04/12/19 Ordered By: Ellie Rosario Discharge Data Attending Provider: Ila Spencer Admivan Date/Time: 04/11/19 00:04 Quality VTE Deep Vein Thrombosis/Pulmonary Embolism Present on Admission: No
--- NOTE | 2019-04-12 15:11 | CM.SWNOTE ---
Addendum entered by JASVIR Vance 04/14/19 16:58: TC from Niesha at [facility], updated her w/ Edi's dispo. JW Original Note: Working on coordination on this DCP w/ MADISON Castellanos. Bed has been secured at [facility], Randi has secured this bed and has coordinated the admission for this evening. This BAG GRADER provided SW notes to Randi, dating back to 04.07.19, summary of pt's ER visits well documented in Lacie Oropeza's note/assessment 04.07.19 to support grave disability and failed outpt attempts at sobriety. YONATHAN Navas completed nurse to nurse report and YONATHAN Butterfield securing BLS transport. MADISON Trotter has completed the Authorization of Ambulance under BEAU form for the BLS crew. Pt is aware of his detainment and will be made aware of his destination this afternoon/evening. Dr Rosario included in coordination efforts throughout the day and now completing DC order/summary. P: DC to [facility] under [employer] detainment ([facility]AU) via secured transport/BLS. Transport time TBD. This BAG GRADER requested that environmental services bring Large sweats and a sweatshirt, if available, to be used by pt; friend will not be available to drop off clothes until 6 this evening, per pt report. JASVIR Vance
[2019-04-12 15:35] VITALS: BP 137/90; PULSE 94; RESP 20; TEMP 36.8; O2SAT 96
--- NOTE | 2019-04-12 17:27 | PC.NURSE ---
pt dc'd and transferred via ambulance. pt got ativan and haldol before discharge.
== END 2019-04-12 17:23 | disposition home or self-care (01) | DRG 775 ==
LOC: ED 18:37 → AC 04-11 00:05
PROVIDERS: Internal Medicine; Admitting Provider Nurse Practitioner Family; Emergency Provider Emergency Medicine; Visit Provider Nurse Practitioner Family
DX: F10.232 Alcohol dependence with withdrawal with perceptual disturbance (principal); F10.220 Alcohol dependence with intoxication, uncomplicated; Y90.8 Blood alcohol level of 240 mg/100 ml or more; E66.9 Obesity, unspecified; Z68.38 Body mass index [BMI] 38.0-38.9, adult; R10.9 Unspecified abdominal pain; R10.13 Epigastric pain; I10 Essential (primary) hypertension; F17.210 Nicotine dependence, cigarettes, uncomplicated
CPT/HCPCS: 36415; 36591; 51701; 80053; 80305; 80320; 80329; 83735; 85025; 93005; 93010; 93041; 96361; 96374; 96375; 96376; 99285; 99291; C9113; G0480; J1630; J1885; J2060; J2405